=== PATIENT | male | born 1965 | race Caucasian/White ===

== ENCOUNTER 2020-11-23 12:17 | Outpatient (REF) | payer BC, SELFPAY ==
[2020-11-23 13:51] LABS: MANUAL DIFF FLAG NO
[2020-11-23 14:02] LABS: Basophils Percent Auto 0.6 % (0-2); Eosinophils Absolute Auto 0.1 X10*3/uL (0.0-0.4); Eosinophils Percent Auto 2.2 % (0-4); Hematocrit 46.1 % (42-52); Hemoglobin 15.4 g/dl (14.0-18.0); Imm Gran Abs Auto 0.02 X10*3/uL (0.00-0.03); Imm Gran Pct Auto 0.3 % (0.0-0.4); Lymphocytes Absolute Auto 1.7 X10*3/uL (1.2-4.9); Lymphocytes Percent Auto 26.1 % (20-40); Mean Corpuscular HGB Conc 33.4 g/dl (31.0-36.0); Mean Corpuscular Hemoglobin 29.1 pg (27.0-33.0); Mean Corpuscular Volume 87.1 fL (80-98); Mean Platelet Volume 10.9 fL (9.4-12.4); Monocytes Absolute Auto 0.5 X10*3/uL (0.1-1.2); Monocytes Percent Auto 8.1 % (2-11); Neutrophils Percent Auto 62.7 % (45-73); Platelet Count 276 X10*3/uL (160-400); Red Blood Count 5.29 X10*6/uL (4.60-5.80); White Blood Count 6.4 X10*3/uL (4.8-10.8)
[2020-11-23 14:41] LABS: Alanine Aminotransferase 47 U/L (0-40); Albumin Level 4.7 g/dL (3.5-5.0); Alkaline Phosphatase 59 U/L (39-117); Anion Gap 13 (12-20); Aspartate Amino Transferase 31 U/L (5-37); Bilirubin Total 0.4 mg/dL (0.0-1.0); Blood Urea Nitrogen 16 mg/dL (9-16); Calcium 10.1 mg/dL (8.4-10.2); Carbon Dioxide 27 mmol/L (22-29); Chloride 103 mmol/L (96-108); Estimated Glomerular Filt Rate > 60; Glucose Random 175 mg/dL (60-115); Potassium 4.8 mmol/L (3.3-5.1); Sodium 138 mmol/L (135-145); Total Protein 7.1 g/dL (6.5-8.0)
== END 2020-11-23 12:18 | disposition home or self-care (01) ==
LOC: HO.HMGCLDS 12:17
PROVIDERS: Nurse Practitioner Family; PCP Nurse Practitioner Family; Visit Provider Nurse Practitioner Family
DX: R10.9 Unspecified abdominal pain (principal)
CPT/HCPCS: 36415; 80053; 85025

== ENCOUNTER 2020-12-03 11:40 | Emergency (ER) | payer BC, SELFPAY ==
--- NOTE | 2020-12-03 | ECG_ITS ---
Test Reason : CHEST PAIN Blood Pressure : / mmHG Vent. Rate : 072 BPM Atrial Rate : 072 BPM P-R Int : 180 ms QRS Dur : 086 ms QT Int : 382 ms P-R-T Axes : 026 036 023 degrees QTc Int : 418 ms Normal sinus rhythm with sinus arrhythmia Possible Left atrial enlargement Borderline ECG No previous ECGs available Referred By: Generic ED Physician Electronically Signed By:MIGUEL CALL MD
--- NOTE | ~2020-12-03 | XR_ITS ---
EXAMINATION: XR CHEST CLINICAL INFORMATION: Chest pain COMPARISON: None TECHNIQUE: 2 views of the chest were obtained. FINDINGS: No significant abnormality is noted involving the heart, lungs, mediastinum, bony thorax or soft tissues. XR/XR chest 2V IMPRESSION: Unremarkable examination.
[2020-12-03 12:01] VITALS: BP 189/96; PULSE 81; RESP 18; TEMP 36.8; O2SAT 97; BMI 29.5
[2020-12-03 12:43] VITALS: BP 145/77; PULSE 58; PULSE 63; RESP 14; O2SAT 98
--- NOTE | 2020-12-03 12:53 | ED.CHESTPAIN ---
HPI - Chest Pain General Chief Complaint: Chest Pain Stated Complaint: chest pain Time Seen by Provider: 12/03/20 12:52 Source: patient Mode of arrival: ambulatory Limitations: no limitations History of Present Illness HPI narrative: 55 y/o male with history of HTN and GERD who presents to the ER with intermittent sharp left sided chest pains that started last night when he was watching TV. He states they are sharp cramps that only last a few seconds and come and go. They do not radiate. They have been happening on/off since last night. He was nervous about them and did not go to sleep until about 3am. He went for a 1.5 hour walk this morning with his with a few minor episodes of pain, no SOB, no diaphoresis. He admits to mild nausea but no vomiting. He was seen at [facility] on 11/27 for LLQ pain - diagnosed with colitis and found to have 1st degree AV block, HR 50-60's. His labetelol was stopped and he was started on losartan. MD complaint: chest pain Onset (ago): day(s) (1) Timing of current episode: episodic Prior episodes: No Onset: during rest Pain location: left chest Pain radiation: none Severity: moderate Quality: sharp and shooting Relieving factors: nothing Exacerbating factors: nothing Associated symptoms: nausea Treatment prior to arrival: none Risk Factors Coronary artery disease risk factors: hypertension Thoracic aortic dissection risk factors: none Related Data Previous Rx's Medication Instructions Recorded famotidine 40 mg tablet 40 mg PO DAILY 90 Days #90 tab 09/14/20 scopolamine base 1 mg over 3 days 1 patch TRANSDERMAL Q3D PRN 30 09/28/20 transdermal patch Days #24 ea tizanidine 2 mg tablet 2 mg PO BEDTIME PRN 20 Days #20 tab 09/28/20 losartan 25 mg tablet 25 mg PO DAILY #90 tab 11/28/20 Allergies Allergy/AdvReac Type Severity Reaction Status Date / Time metformin AdvReac Unknown stomach Verified 12/03/20 12:01 upset Review of Systems Review of Systems: Constitutional: No Fever, No Chills ENT/Mouth: No sore throat, No Rhinorrhea, No Swallowing Difficulty Eyes: No Eye Pain, No Swelling, No Redness Cardiovascular: + Chest Pain, No SOB, No Orthopnea, No Edema Respiratory: No Cough, No Sputum, No Wheezing, No dyspnea Gastrointestinal: + Nausea, No Vomiting, No Diarrhea, No abdominal Pain, No Hematochezia, No Melena Genitourinary: No Dysuria, No Urinary Frequency, No Hematuria Musculoskeletal: No joint pain, No Myalgias Skin: No Skin Lesions, No rash Neuro: No Weakness, No Numbness, No Dizziness, No Headache Psych: + Anxiety/Panic, No Depression Heme/Lymph: No Bruising, No Lymphadenopathy Endocrine: No Polyuria, No Polydipsia PMF Past Medical History Attestation statement: The following information was validated with the patient. Medical History Hypertensive retinopathy Surgical History (Updated 12/03/20 @ 12:05 by Lashay Sanchez RN) H/O knee surgery S/P shoulder surgery Family History Family History Father No problems noted. Mother Cancer Social History Social History Alcohol intake: current Alcohol intake frequency: holidays/special occasions only Patient Tobacco Use Status: Never used Tobacco Use of substances other than those prescribed or required for medical reasons: Yes Substance Use Type: Marijuana Substance Use Frequency: Daily Advance Directives: No Advance Directives Information Provided: Yes Physical Exam Vital Signs: Vital Signs: Last Vital Signs Temp 98.2 F 12/03/20 12:01 Pulse 57 12/03/20 16:03 Resp 18 12/03/20 16:03 BP 177/98 H 12/03/20 16:03 Pulse Ox 99 12/03/20 16:03 Body Mass Index 29.5 Appearance: Alert. Oriented X3. No acute distress. Eyes: Pupils equal, round and reactive to light. ENT: Pharynx normal. Neck: Normal inspection. Neck supple. CVS: Normal heart rate and rhythm. Pulses normal. Respiratory: No respiratory distress. Breath sounds normal. Abdomen: Soft and nontender. +BS x4 Skin: Skin warm and dry. Normal skin color. Normal skin turgor. No rashes. Extremities: No lower extremity edema. Neuro: Oriented X 3. No motor deficit. No sensory deficit. Course Course Course Narrative: 55 y/o male with history of HTN presenting with intermittent sharp left sided chest pains that last a few seconds at a time. Not typical of cardiac chest pain or ACS. EKG without STEMI. Will get lab workup, CXR and keep on continuous secured entrance monitor. Reevaluation(s) Reevaluation #1: 1st troponin 56. Will plan to repeat in 3 hours. He is comfortable and chest pain free at this time. CXR is normal. Reevaluation #2: Repeat troponin is unchanged. Case d/w Dr. Beach via TT - chest pain does not seem typical of ACS, trop is flat. Doubt ACS at this time. Patient is stable for discharge home with plan for close outpatient follow up. He will follow up with his doctor next week for BP management and follow up. He also would like to see a Principal Consulting Engineer so this referral was made as well. Patient instructed to return if chest pain changes or worsens. Consultations Consultation #1: Cardiology - Dr. Beach MDM - Chest Pain Medical Records Data Attestation: I reviewed the patient's medical records. Lab Data Attestation: I reviewed the patient's lab results. Result diagrams: 12/03/20 12:57 12/03/20 12:57 Labs: Lab Results 12/03/20 12/03/20 12/03/20 Range/Units 12:57 12:57 12:57 WBC 6.5 (4.8-10.8) X10*3/uL RBC 5.19 (4.60-5.80) X10*6/uL Hgb 15.2 (14.0-18.0) g/dl Hct 44.0 (42-52) % MCV 84.8 (80-98) fL MCH 29.3 (27.0-33.0) pg MCHC 34.5 (31.0-36.0) g/dl RDW 12.7 (11.0-16.0) % Plt Count 235 (160-400) X10*3/uL MPV 10.5 (9.4-12.4) fL Immature Gran % (Auto) 0.2 (0.0-0.4) % Neut % (Auto) 63.6 (45-73) % Lymph % (Auto) 25.9 (20-40) % [place] % (Auto) 7.9 (2-11) % Eos % (Auto) 1.9 (0-4) % Baso % (Auto) 0.5 (0-2) % Lymph # (Auto) 1.7 (1.2-4.9) X10*3/uL [place] # (Auto) 0.5 (0.1-1.2) X10*3/uL Eos # (Auto) 0.1 (0.0-0.4) X10*3/uL Baso # (Auto) 0.0 (0.0-0.2) X10*3/uL Abs Immat Gran (auto) 0.01 (0.00-0.03) X10*3/uL Absolute Neuts (auto) 4.1 (2.0-8.3) X10*3/uL Absolute Nucleated RBC 0.000 (0.0-0.012) X10*3/uL Nucleated RBC % (auto) 0.0 (0.0-0.2) /100WBC Sodium Cancelled 137 Potassium Cancelled 4.4 Chloride Cancelled 104 Carbon Dioxide Cancelled 21 L Anion Gap Cancelled 16 BUN Cancelled 17 H Creatinine Cancelled 0.91 Estim Creat Clear Calc Cancelled 115.3 Estimated GFR Cancelled > 60 Random Glucose Cancelled 128 H Calcium Cancelled 9.4 D Magnesium 2.1 (1.6-2.6) mg/dL Troponin I High Sens (<3.5-35.0) ng/L 12/03/20 12/03/20 Range/Units 12:57 16:10 WBC (4.8-10.8) X10*3/uL RBC (4.60-5.80) X10*6/uL Hgb (14.0-18.0) g/dl Hct (42-52) % MCV (80-98) fL MCH (27.0-33.0) pg MCHC (31.0-36.0) g/dl RDW (11.0-16.0) % Plt Count (160-400) X10*3/uL MPV (9.4-12.4) fL Immature Gran % (Auto) (0.0-0.4) % Neut % (Auto) (45-73) % Lymph % (Auto) (20-40) % [place] % (Auto) (2-11) % Eos % (Auto) (0-4) % Baso % (Auto) (0-2) % Lymph # (Auto) (1.2-4.9) X10*3/uL [place] # (Auto) (0.1-1.2) X10*3/uL Eos # (Auto) (0.0-0.4) X10*3/uL Baso # (Auto) (0.0-0.2) X10*3/uL Abs Immat Gran (auto) (0.00-0.03) X10*3/uL Absolute Neuts (auto) (2.0-8.3) X10*3/uL Absolute Nucleated RBC (0.0-0.012) X10*3/uL Nucleated RBC % (auto) (0.0-0.2) /100WBC Sodium Potassium Chloride Carbon Dioxide Anion Gap BUN Creatinine Estim Creat Clear Calc Estimated GFR Random Glucose Calcium Magnesium (1.6-2.6) mg/dL Troponin I High Sens 56.1 H* 56.3 H* (<3.5-35.0) ng/L ECG Data ECG #1: Attestation: I personally reviewed and interpreted this ECG as follows: ECG interpretation date: 12/03/20 ECG interpretation time: 13:08 Prior ECG tracings: available for review Interpretation: normal sinus rhythm, HR 72 bpm, normal DC interval, normal QRS, isolated t-wave inversion in lead III Scores Heart Score History: -0- slightly suspicious ECG: -0- normal Age: -1- >45 - <65 Risk factory: -1- 1 or 2 risk factors Troponin: -1- >1 - <3x normal limit Score: 3 Risk: 1.7% Critical Care Time Critical Care Time Critical Care Time: No Discharge Plan Discharge Clinical Impression: Atypical chest pain Patient Disposition: Home, Self-Care Instructions: Chest Pain (ED) Additional Instructions: Your lab workup today was reassuring against acute life threatening cardiac chest pain. Recommend rest, no strenuous activity. Follow up with your doctor next week. Continue taking your blood pressure medication, it may need to be increased by your doctor. Recommend following up with Cardiology for further workup. If you develop new or worsening symptoms or if your chest pain worsens or changes call 911 or come back to the ER for further evaluation. Prescriptions: No Action famotidine 40 mg tablet 40 mg PO DAILY 90 Days Qty: 90 RF: 0 losartan 25 mg tablet 25 mg PO DAILY Qty: 90 RF: 0 tizanidine 2 mg tablet 2 mg PO BEDTIME PRN (Reason: muscle spasticity) 20 Days Qty: 20 RF: 0 scopolamine base 1 mg over 3 days patch 3 day 1 patch transdermal Q3D PRN (Reason: nausea and vomiting) 30 Days Qty: 24 RF: 3 Referrals: Poli Beach MD [Physician] - 5 days (atypical chest pain, HTN)
[2020-12-03 13:03] LABS: MANUAL DIFF FLAG NO
[2020-12-03 13:08] LABS: Basophils Percent Auto 0.5 % (0-2); Eosinophils Absolute Auto 0.1 X10*3/uL (0.0-0.4); Eosinophils Percent Auto 1.9 % (0-4); Hemoglobin 15.2 g/dl (14.0-18.0); Imm Gran Abs Auto 0.01 X10*3/uL (0.00-0.03); Imm Gran Pct Auto 0.2 % (0.0-0.4); Lymphocytes Absolute Auto 1.7 X10*3/uL (1.2-4.9); Lymphocytes Percent Auto 25.9 % (20-40); Mean Corpuscular HGB Conc 34.5 g/dl (31.0-36.0); Mean Corpuscular Hemoglobin 29.3 pg (27.0-33.0); Mean Corpuscular Volume 84.8 fL (80-98); Mean Platelet Volume 10.5 fL (9.4-12.4); Monocytes Absolute Auto 0.5 X10*3/uL (0.1-1.2); Monocytes Percent Auto 7.9 % (2-11); Neutrophils Absolute Auto 4.1 X10*3/uL (2.0-8.3); Neutrophils Percent Auto 63.6 % (45-73); Platelet Count 235 X10*3/uL (160-400); Red Blood Count 5.19 X10*6/uL (4.60-5.80); Red Cell Distribution Width 12.7 % (11.0-16.0); White Blood Count 6.5 X10*3/uL (4.8-10.8)
[2020-12-03 13:45] LABS: Blood Urea Nitrogen 17 mg/dL (9-16); Calcium 9.4 mg/dL (8.4-10.2); Creatinine Clr Calc Pharmacy 115.3; Estimated Glomerular Filt Rate > 60; Glucose Random 128 mg/dL (60-115); Magnesium 2.1 mg/dL (1.6-2.6); Troponin-I High Sensitivity 56.1 ng/L (<3.5-35.0)
[2020-12-03 13:52] LABS: Anion Gap 16 (12-20); Carbon Dioxide 21 mmol/L (22-29); Chloride 104 mmol/L (96-108); Potassium 4.4 mmol/L (3.3-5.1); Sodium 137 mmol/L (135-145)
[2020-12-03] MEDS: Aspirin 325 MG TABLET PO (14:05)
[2020-12-03 14:06] VITALS: BP 159/94; PULSE 54; RESP 14; O2SAT 99
[2020-12-03 16:03] VITALS: BP 177/98; PULSE 54; PULSE 57; RESP 16; RESP 18; O2SAT 99
--- NOTE | 2020-12-03 16:03 | PC.NURSE ---
pt denies any cp/discomfort has resolved at this time. pt has denied nausea, sob, dizziness since arrival toED. sinus claribel in 50s on monitor. awaiting 2nd troponin, pt aware of plan for care.
[2020-12-03 16:45] LABS: Troponin-I High Sensitivity 56.3 ng/L (<3.5-35.0)
== END 2020-12-03 17:16 | disposition home or self-care (01) ==
PROVIDERS: Physician Assistant; Emergency Provider Emergency Medicine Emergency Medical Services; PCP Nurse Practitioner Family
DX: R07.89 Other chest pain (principal); I10 Essential (primary) hypertension; K21.9 Gastro-esophageal reflux disease without esophagitis
CPT/HCPCS: 36415; 71046; 80048; 83735; 84484; 85025; 93005; 99285

== ENCOUNTER → 2020-12-20 13:24 | Outpatient (BNVA) | payer BC, SELFPAY | PROVIDERS: PCP Nurse Practitioner Family; Referring Provider Nurse Practitioner Family; Visit Provider Internal Medicine Cardiovascular Disease | DX: I44.0 Atrioventricular block, first degree (principal); I42.9 Cardiomyopathy, unspecified; I10 Essential (primary) hypertension; H35.039 Hypertensive retinopathy, unspecified eye; K21.9 Gastro-esophageal reflux disease without esophagitis; Z79.899 Other long term (current) drug therapy | CPT/HCPCS: 93005 ==

== ENCOUNTER → 2021-01-05 09:24 | Outpatient (BNVA) | payer BC, SELFPAY | PROVIDERS: PCP Nurse Practitioner Family; Referring Provider Nurse Practitioner Family; Visit Provider Internal Medicine Cardiovascular Disease ==

== ENCOUNTER → 2021-02-10 09:05 | Outpatient (REF) | payer BC, SELFPAY ==
--- NOTE | 2021-02-10 09:09 | CA_ITS ---
Transthoracic Echocardiogram Patient (Last, First, Middle): Maverick Larry, Gender: Male Date of : 1965 Age: 55 Procedure Date: 02/10/2021 Procedure Type: Transthoracic Echocardiogram Location: OP Height: 187.96 cm Weight: 102.97 kg BSA: 2.29 m2 Heart Rate: bpm BP: 130 / 90 mmHg Manager Of Procurement: CATIE Referring MD: Vasu Caldera MD Symptoms: I42.9 - Cardiomyopathy, unspecified Conclusions: - Normal left ventricular size and systolic function. - Diastolic function is normal for age. - Normal right ventricular cavity size and systolic function. Findings Left Ventricle Normal left ventricular size and systolic function. There is mildly increased left ventricular wall thickness. The visually estimated ejection fraction is between 60-65%. There is no evidence of regional wall motion abnormalities. Diastolic function is normal for age. Right Ventricle Normal right ventricular cavity size and systolic function. Atria Both atria are normal in size. Aortic Valve Normal aortic valve structure and function. There is no aortic valve stenosis. There is no aortic valve regurgitation. Mitral Valve Normal mitral valve structure and function. There is trace mitral valve regurgitation. There is no mitral valve stenosis. Pulmonic Valve Normal pulmonic valve structure and function. There is no pulmonic valve regurgitation. Tricuspid Valve Normal tricuspid valve structure and function. There is no tricuspid valve regurgitation. Tricuspid regurgitation envelope is inadequate for calculation of right ventricular systolic pressure. Normal right atrial pressure. Great Vessels There is mild dilatation of the ascending aorta. The visualized portions of the pulmonary artery and branches are normal. Venous The inferior vena cava is normal in size and collapses greater than 50% with inspiration. Pericardium/Pleural There is no evidence of pericardial effusion. Prior Study Comparison No significant change compared to prior study dated: 07/07/2019. Measurements 2D Linear Measurements IVSd: 1.19 0.6-0.9/0.6-1.0 cm LVIDd: 4.11 3.9-5.3/4.2-5.9 cm LVIDd Index: 1.79 2.4-3.2/2.2-3.1 cm/m2 LVIDs: 2.63 2.0-3.6 cm LVPWd: 1.20 0.7-1.1 cm Ao Root: 3.70 2.1-3.5 cm LA Diam: 3.80 2.7-3.8/3.0-4.0 cm LAIDs Index: 1.66 1.5-2.3 cm/m2 LV Mass: 213.41 67-162/88-224 g LV Mass Index: 93.19 43-95/49-115 g/m2 LVOT Diam: 2.40 3.0+(-)1.3 cm 2D Systolic Function EF 4C: 69.20 >55% EF 2C: 65.50 >55% EF BiP: 67.90 >55% Mitral Valve MV Pk E: 0.74 MV PK A: 0.81 MV Decel Time: 213.00 E/A: 0.90 E'Lateral: 8.81 E'Medial: 5.87 E/E' Med: 12.50 E/E' Lat: 8.30 PHT: 62.00 MVA PHT: 3.55 Decel [place]: 3.45 Aortic Valve AoV Pk Benja: 1.21 AoV Pk Grad: 6.00 LVOT LVOT Pk Benja: 1.26 LVOT Mn Benja: 0.79 LVOT VTI: 0.25 LVOT Pk Grad: 6.00 LVOT Mn Grad: 3.00 LVOT Diam: 2.40 LVOT Area: 4.52 Diastolic Function MV Pk E: 0.74 MV Pk A: 0.81 E/A: 0.90 E'Medial: 5.87 E/E' Med: 12.50 E' Laterial: 8.81 E/E' Lat: 8.30 Right Ventricle TAPSE (mm): 2.07 Tricuspid Valve RA Press: 3.00 Great Vessels Aorta Ao Root-2D: 3.70 2.0-3.7 cm Ao Asc: 3.80 2.1-3.4 cm Updated in Other Vendor System with Status of Final Vasu Caldera MD electronically signed on 02/12/2021 3:27:07 PM with status of Final
== END ==
LOC: HO.CARD 09:05
PROVIDERS: Visit Provider Internal Medicine Cardiovascular Disease
DX: I10 Essential (primary) hypertension (principal); I42.9 Cardiomyopathy, unspecified
CPT/HCPCS: 93306

== ENCOUNTER → 2021-04-19 15:00 | Outpatient (BNVA) | payer BC, SELFPAY | PROVIDERS: PCP Nurse Practitioner Family; Referring Provider Nurse Practitioner Family; Visit Provider Internal Medicine Cardiovascular Disease ==

== ENCOUNTER → 2021-05-03 14:59 | Outpatient (BNVA) | payer BC, SELFPAY | PROVIDERS: PCP Nurse Practitioner Family; Referring Provider Nurse Practitioner Family; Visit Provider Internal Medicine Cardiovascular Disease ==

== ENCOUNTER → 2021-07-20 15:17 | Outpatient (BNVA) | payer BC, SELFPAY | PROVIDERS: PCP Nurse Practitioner Family; Referring Provider Nurse Practitioner Family; Visit Provider Internal Medicine Cardiovascular Disease ==

== ENCOUNTER 2021-08-14 12:56 | Outpatient (REF) | payer BC, SELFPAY ==
[2021-08-14 14:04] LABS: Anion Gap 13 (12-20); Blood Urea Nitrogen 15 mg/dL (9-16); Calcium 9.8 mg/dL (8.4-10.2); Carbon Dioxide 29 mmol/L (22-29); Chloride 101 mmol/L (96-108); Estimated Glomerular Filt Rate > 60; Potassium 4.5 mmol/L (3.3-5.1); Sodium 138 mmol/L (135-145)
[2021-08-14 14:51] LABS: Creatinine Urine 140.02 mg/dL; Protein/Creatinine Ratio, Ur 0.14 (<0.2); Total Protein Urine Random 20 mg/dL (<12)
== END 2021-08-14 12:57 | disposition home or self-care (01) ==
LOC: HO.LAB 12:56
PROVIDERS: PCP Nurse Practitioner Family; Visit Provider Internal Medicine Nephrology
DX: I10 Essential (primary) hypertension (principal); R80.8 Other proteinuria
CPT/HCPCS: 36415; 80051; 82310; 82565; 84156; 84520

== ENCOUNTER 2021-10-05 11:32 | Outpatient (REF) | payer BC, SELFPAY ==
[2021-10-05 13:57] LABS: Estimated Average Glucose 220 mg/dL; Hemoglobin A1c % 9.3 %
== END 2021-10-05 11:33 | disposition home or self-care (01) ==
LOC: HO.HMGCLDS 11:32
PROVIDERS: PCP Nurse Practitioner Family; Visit Provider Nurse Practitioner Family
DX: R73.9 Hyperglycemia, unspecified (principal); R00.1 Bradycardia, unspecified; R06.00 Dyspnea, unspecified; I10 Essential (primary) hypertension; R10.9 Unspecified abdominal pain
CPT/HCPCS: 36415; 83036

== ENCOUNTER 2021-10-22 05:49 | Emergency (ER) | payer BC, SELFPAY ==
--- NOTE | ~2021-10-22 | XR_ITS ---
EXAMINATION: XR CHEST CLINICAL INFORMATION: Cough COMPARISON: 12/03/2020 TECHNIQUE: Frontal view of the chest was obtained. FINDINGS: The lungs are well expanded. There is no focal consolidation, edema, or effusion. No pneumothorax. The cardiomediastinal silhouette is within normal limits. No acute osseous abnormality. XR/XR chest 1V IMPRESSION: No acute pulmonary finding.
[2021-10-22 05:55] VITALS: BP 166/100; PULSE 87; RESP 22; TEMP 37.1; O2SAT 97; BMI 29.5
[2021-10-22 06:25] LABS: COVID-19 Test Negative (Negative); IDNOW Serial# 16C4AD1C; Influenza A Negative (Negative); Influenza B2 Negative (Negative)
--- NOTE | 2021-10-22 06:38 | ED_ITS ---
HPI - URI/Sore Throat General Chief Complaint: Upper Respiratory Symptoms Stated Complaint: flu+ ; difficulty breathing Time Seen by Provider: 10/22/21 06:37 Source: patient Mode of arrival: ambulatory Limitations: no limitations History of Present Illness MD elicited complaint: cough and rhinorrhea Onset (ago): day(s) (7) Consistency: progressively worsening Severity: moderate Description of mucous: clear Able to tolerate fluids by mouth: Yes Exacerbating factors: other (coughing) Relieving factors: nothing Context: sick contacts (friend had same thing) and recent travel (stayed in a condo in [facility] a week ago) Associated symptoms: rhinorrhea, nasal congestion, cough and shortness of breath Treatments prior to arrival: none Related Data Home Medications Medication Instructions Recorded Confirmed losartan 50 mg tablet 50 mg PO DAILY 04/19/21 10/07/21 Previous Rx's Medication Instructions Recorded scopolamine base 1 mg over 3 days 1 patch TRANSDERMAL Q3D PRN 30 09/28/20 transdermal patch Days #24 ea famotidine 40 mg tablet 40 mg PO DAILY PRN 90 Days #90 tab 06/07/21 blood sugar diagnostic (FreeStyle #100 ea 10/05/21 Lite Strips) blood-glucose meter (FreeStyle #1 ea 10/05/21 Lite Meter) lancets 28 gauge (FreeStyle #100 ea 10/05/21 Lancets) metformin 500 mg tablet 500 mg PO BID 30 Days #60 tab 10/05/21 doxycycline hyclate 100 mg capsule 100 mg PO BID 7 Days #14 cap 10/22/21 prednisone 20 mg tablet 20 mg PO DAILY 5 Days #5 tab 10/22/21 Allergies Allergy/AdvReac Type Severity Reaction Status Date / Time metformin AdvReac Unknown stomach Verified 10/22/21 05:55 upset Review of Systems Review of Systems: Constitutional : No Fever, No Chills ENT/Mouth : No sore throat, pos Rhinorrhea, No Swallowing Difficulty Eyes: No Eye Pain, No Swelling, No Redness Cardiovascular : No Chest Pain, positive SOB, No Orthopnea, positive Edema Respiratory : pos Cough, pos Sputum, No Wheezing, positive dyspnea Gastrointestinal : No Nausea, No Vomiting, No Diarrhea, No abdominal Pain, No Hematochezia, No Melena Genitourinary : No Dysuria, No Urinary Frequency, No Hematuria Musculoskeletal : No joint pain, No Myalgias Skin : No Skin Lesions, No rash Neuro : No Weakness, No Numbness, No Dizziness, No Headache Psych : No Anxiety/Panic, No Depression [facility] Past Medical History Medical History GERD (gastroesophageal reflux disease) Hypertensive retinopathy Surgical History H/O knee surgery S/P shoulder surgery Family History Family History Father No problems noted. Mother Cancer Social History Social History Alcohol intake: current Alcohol intake frequency: a few times a month Patient Tobacco Use Status: Never used Tobacco Substance Use Type: Marijuana Advance Directives: No Advance Directives Information Provided: Yes Physical Exam Vital Signs: Vital Signs: Last Vital Signs Temp 98.8 F 10/22/21 05:55 Pulse 87 10/22/21 05:55 Resp 22 H 10/22/21 05:55 BP 166/100 H 10/22/21 05:55 Pulse Ox 97 10/22/21 05:55 BMI result Body Mass Index 29.5 Appearance: Alert. Oriented X3. No acute distress. Eyes: Pupils equal, round and reactive to light. ENT: Pharynx normal. Neck: Normal inspection. Neck supple. CVS: Normal heart rate and rhythm. Pulses normal. Respiratory: No respiratory distress. Breath sounds normal. Abdomen: Soft and non-tender. Skin: Skin warm and dry. Normal skin color. Normal skin turgor. Extremities: No lower extremity edema. No calf ttp Neuro: Oriented X 3. No motor deficit. No sensory deficit. MDM - URI/Sore Throat MDM Narrative Medical decision making narrative: 55 yo male with hx of HTN no prior reactive airway disease not a smoker comes in with c/o productive cough and not feeling well with a sick friend - xray and swabs negative stable for DC at this time no hypoxia not toxic start on doxy and prednisone for bronchitis. Lab Data Labs: Lab Results 10/22/21 10/22/21 Range/Units 06:05 06:05 COVID-19 ([facility]) Negative (Negative) COVID-19 Clin Com See Note Influenza Type A ([place]) Negative (Negative) Influenza Type B ([place]) Negative (Negative) Influenza A & B Note See Note Discharge Plan Discharge Clinical Impression: Bronchitis Patient Disposition: Home, Self-Care Instructions: Acute Bronchitis (ED) Additional Instructions: return to ED for any worsening symptoms or concerns Prescriptions: New doxycycline hyclate 100 mg capsule 100 mg PO BID 7 Days Qty: 14 0RF prednisone 20 mg tablet 20 mg PO DAILY 5 Days Qty: 5 0RF No Action famotidine 40 mg tablet 40 mg PO DAILY PRN (Reason: GERD) 90 Days Qty: 90 0RF metformin 500 mg tablet 500 mg PO BID 30 Days Qty: 60 0RF Rx Instructions: one tab daily for 1 weeks, then go to twice a day (DME) blood-glucose meter [FreeStyle Lite Meter] Kit See Rx Instructions .Route Qty: 1 0RF Rx Instructions: Use to check blood sugar daily (DME) FreeStyle Lite Strips Strip See Rx Instructions .Route Qty: 100 0RF Rx Instructions: Use to check blood sugar daily (DME) lancets [FreeStyle Lancets] 28 gauge misc See Rx Instructions .Route Qty: 100 0RF Rx Instructions: Use to check blood sugar daily scopolamine base 1 mg over 3 days patch 3 day 1 patch transdermal Q3D PRN (Reason: nausea and vomiting) 30 Days Qty: 24 3RF losartan 50 mg tablet 50 mg PO DAILY 0RF Referrals: Mayank Loera, CRITICAL CARE PHYSICIAN ASSISTANT-BC [Primary Care Provider] - 2 days (if not better) Stand Alone Forms: Work/School Release
== END 2021-10-22 07:48 | disposition home or self-care (01) ==
PROVIDERS: Emergency Provider Emergency Medicine; PCP Nurse Practitioner Family
DX: J40 Bronchitis, not specified as acute or chronic (principal); I10 Essential (primary) hypertension; Z20.822 Contact with and (suspected) exposure to COVID-19
CPT/HCPCS: 71045; 87502; 87635; 99283

== ENCOUNTER 2022-05-22 08:35 | Outpatient (REF) | payer BC, SELFPAY ==
[2022-05-22 11:25] LABS: Appearance Urine Turbid; Color Urine Yellow; Glucose Urine UA 100 mg/dL (Negative); Leukocyte Esterase Urine Negative (Negative); Nitrite Urine Negative (Negative); PH 5.5 (5.0-9.0); Specific Gravity - Urine 1.025 (1.005-1.025); UMIC TRIGGER UACC YES; Urine Blood Negative (Negative); Urine Ketones Trace mg/dL (Negative); Urine Protein 30 (1+) mg/dL (Neg-Trace)
[2022-05-22 11:28] LABS: Bacteria Urine None Seen (None Seen); Hyaline Casts Urine 0-2 /LPF (0-2); MANUAL DIFF FLAG NO; RBC Urine 0-2 /HPF (0-2); Squamous Epithelial Cell Urine 0-2 /HPF (0-2); WBC Urine 0-5 /HPF (0-5)
[2022-05-22 11:35] LABS: Basophils Percent Auto 0.6 % (0-2); Eosinophils Absolute Auto 0.1 X10*3/uL (0.0-0.4); Eosinophils Percent Auto 1.9 % (0-4); Hematocrit 47.3 % (42.0-52.0); Hemoglobin 16.2 g/dl (14.0-18.0); Imm Gran Abs Auto 0.02 X10*3/uL (0.00-0.03); Imm Gran Pct Auto 0.3 % (0.0-0.4); Lymphocytes Absolute Auto 1.7 X10*3/uL (1.2-4.9); Lymphocytes Percent Auto 23.5 % (20-40); Mean Corpuscular HGB Conc 34.2 g/dl (31.0-36.0); Mean Corpuscular Hemoglobin 29.1 pg (27.0-33.0); Mean Corpuscular Volume 84.9 fL (80.0-98.0); Mean Platelet Volume 10.8 fL (9.4-12.4); Monocytes Absolute Auto 0.4 X10*3/uL (0.1-1.2); Monocytes Percent Auto 5.8 % (2-11); Neutrophils Absolute Auto 4.9 x10*3/uL (2.0-8.3); Neutrophils Percent Auto 67.9 % (45-73); Platelet Count 273 X10*3/uL (160-400); Red Blood Count 5.57 X10*6/uL (4.60-5.80); Red Cell Distribution Width 12.5 % (11.0-16.0); White Blood Count 7.3 X10*3/uL (4.8-10.8)
[2022-05-22 13:51] LABS: Creatinine Urine 212.34 mg/dL; Microalbum/Creatinine Ratio Ur 123.8 ug/mg cr
[2022-05-22 14:04] LABS: Alanine Aminotransferase 21 U/L (0-40); Albumin Level 4.5 g/dL (3.5-5.0); Alkaline Phosphatase 66 U/L (39-117); Anion Gap 14 (12-20); Aspartate Amino Transferase 15 U/L (5-37); Bilirubin Total 0.8 mg/dL (0.0-1.0); Blood Urea Nitrogen 15 mg/dL (9-16); Calcium 9.6 mg/dL (8.4-10.2); Carbon Dioxide 25 mmol/L (22-29); Chloride 101 mmol/L (96-108); Cholesterol 243 mg/dL; Estimated Glomerular Filt Rate > 60; Glucose Fasting 199 mg/dL (60-99); HDL Cholesterol 44 mg/dL; LDL Cholesterol Calculated 154 mg/dl; Potassium 4.3 mmol/L (3.3-5.1); Prostate Specific Antigen Scr 1.18 ng/mL (<0.05-4.0); Sodium 136 mmol/L (135-145); TSH reflex Free T4 0.67 uIU/mL (0.32-4.0); Total Protein 6.8 g/dL (6.5-8.0); Triglycerides 228 mg/dL
[2022-05-22 14:14] LABS: Estimated Average Glucose 220 mg/dL; Hemoglobin A1c % 9.3 %
== END 2022-05-22 08:36 | disposition home or self-care (01) ==
LOC: HO.HMGCLDS 08:35
PROVIDERS: PCP Nurse Practitioner Family; Visit Provider Nurse Practitioner Family
DX: Z12.5 Encounter for screening for malignant neoplasm of prostate (principal); E11.9 Type 2 diabetes mellitus without complications
CPT/HCPCS: 36415; 80053; 80061; 81001; 82043; 83036; 84153; 84443; 85025

== ENCOUNTER 2022-10-05 07:52 | Outpatient (REF) | payer BC, SELFPAY ==
--- NOTE | ~2022-10-05 | MR_ITS ---
EXAMINATION: MR ABDOMEN WITHOUT AND WITH CONTRAST CLINICAL INFORMATION: Left lower quadrant pain COMPARISON: None TECHNIQUE: MRI of the abdomen before and after the IV administration of 10 mL of Gadavist was obtained using routine sequences. Heavily T2 weighted MRCP sequences were also obtained. FINDINGS: LUNG BASES: The visualized lung bases are unremarkable. KIDNEYS AND URETERS: Unremarkable. GALLBLADDER: Unremarkable. LIVER AND BILIARY TREE: Loss of signal on opposed phase imaging compatible with hepatic steatosis. No intra or extrahepatic biliary duct dilatation or intraluminal filling defect to suggest choledocholithiasis.. PANCREAS: 4 mm cyst in the pancreatic head, 5:32 and 4 mm cyst in the pancreatic uncinate process, 5:30. No pancreatic duct dilatation or solid components. SPLEEN: Unremarkable ADRENAL GLANDS: Unremarkable GASTROINTESTINAL TRACT: Unremarkable. LYMPH NODES: No lymphadenopathy. VASCULAR: Unremarkable ABDOMINAL WALL: Unremarkable. OSSEOUS STRUCTURES: Unremarkable. MR/MR abdomen wo/w con IMPRESSION: No acute findings to explain symptoms of pain. Tiny 4 mm pancreatic cysts, possibly side branch IPMNs. No pancreatic duct dilatation or solid components. Recommend two-year follow-up contrast enhanced MR/MRCP. Hepatic steatosis.
== END 2022-10-05 07:53 | disposition home or self-care (01) ==
LOC: HO.MRI 07:52
PROVIDERS: PCP Nurse Practitioner Family; Visit Provider Nurse Practitioner Family
DX: R10.32 Left lower quadrant pain (principal)
CPT/HCPCS: 74183; A9585

== ENCOUNTER 2022-12-13 10:52 | Outpatient (AMB) | payer BC, SELFPAY ==
--- NOTE | 2022-12-13 10:56 | A.OFFVIS_ITS ---
Intake Vital Signs 12/13/22 11:06 Height 6 ft 2 in Weight 217 lb 8 oz BMI 27.9 BP 160/100 H Blood Pressure Location Lt brachial Position Sitting Pulse 81 Intake Visit Reasons: LLQ pain Intake Note: Patient is seen in office for evaluation of a left lower quadrant pain. Pt c/o: LLQ pain for 8 yrs, pain has increase, has since multiple doctors and had imaging done with no results, pain is at all times, admits to nausea, denies diarrhea, constipation, vomit Major Donor Coordinator Required: No Accompanied by: Self / Same As Patient Allergies No Known Allergies Allergy (Verified 12/13/22 11:04) Medication List - Last Reconciled 12/13/22 by Mayank Lau MD blood sugar diagnostic (FreeStyle Lite Strips) Use to check blood sugar daily blood-glucose meter (FreeStyle Lite Meter kit) Use to check blood sugar daily famotidine 40 mg PO DAILY PRN 90 days irbesartan 300 mg PO DAILY 30 days lancets (FreeStyle Lancets) Use to check blood sugar daily metformin 1,000 mg PO BID 30 days scopolamine base 1 patch transdermal Q3D PRN 30 days HPI HPI Comments History of Present Illness Details 57-year-old male patient presenting with complaints of left lower quadrant abdominal pain. The pain began approximately 8 years ago with no definite inciting event. 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 He underwent extensive workup including multiple CT scans, abdominal MRIs, ultrasounds and endoscopies without any definite diagnosis of his abdominal pain. The pain is always located in the same location without significant radiation. The pain seems to increase after eating or when sitting upright in a chair or in his car. The pain is decreased when laying back or when lying on the left lower quadrant. He reports increased pain when bending to touch his toes. He denies any palpable mass/lump at the site of increased pain. He notes that eating apples decreases the pain as well. [place] recent [place] [facility] [place] a tiny 4 mm pancreatic cyst possibly side branch IPMNs. No pancreatic duct dilatation or solid component was iden tified. Two year follow-up contrast-enhanced MR/MRCP was recommended. His other workup was performed at [facility]. He denies nausea, vomiting, fever, chills, diarrhea, constipation, or bloody stools. He was noted to have proteinuria and has been evaluated by Nephrology. [facility] Medical History GERD (gastroesophageal reflux disease) Hypertensive retinopathy Surgical History H/O knee surgery S/P shoulder surgery Family History Father No problems noted. Mother Cancer Social History Housing: House Alcohol intake: current Alcohol intake frequency: a few times a month Patient Tobacco Use Status: Never used Tobacco e-Cigarette/Vaping Use: Never Used Substance Use Type: Marijuana Current occupational status: employed Cognitive needs: No Hearing needs: No Vision needs: No Review of Systems Const All systems reviewed & are unremarkable except as noted in HPI and below Physical Exam Vital Signs: Last Vital Signs Pulse 81 12/13/22 11:06 BP 160/100 H 12/13/22 11:06 BMI result Body Mass Index 27.9 Const General: no acute distress and well developed Nutritional Appearance: well nourished Orientation/consciousness: patient oriented x3 Limitations: no limitations HEENT Head: Yes normocephalic and Yes atraumatic Ears: hearing grossly normal bilaterally Resp Effort & Inspection: normal respiratory effort GI Other: Patient examined in the standing position with Valsalva maneuvers. No palpable hernias were identified. An area of tenderness was identified just lateral of t he rectus in the left lower quadrant. Pain is reproducible in the same location with palpation from multiple directions. No definite hernia or mass could be identified. Abdomen is otherwise soft and nondistended without rebound, guarding or rigidity. Abdomen image: 1. Site of point tenderness left lower quadrant Skin General skin exam: no rashes or lesions noted Neuro General: patient oriented x3 Extrem General: Yes no clubbing, cyanosis or edema Assessment & Plan Assessment & Plan (1) LLQ pain: Code(s): R10.32 - Left lower quadrant pain Plan 57-year-old male patient presenting with point tenderness in the abdominal wall localized to the left lower quadrant. This is noted just lateral to the rectus muscle but medial to the belly of the oblique muscles. Site is suspicious for a spigelian hernia although no definite hernia is appreciated. We discussed options including diagnostic laparoscopy with possible repair of a spigelian hernia identified. After discussion of the procedure, risks, and alternatives, he consents to the procedure. He understands that there is a possibility of finding no cause for his pain. He is willing to risk this. After a discussion of the procedure, risks, and alternatives, he consents to the exploratory laparoscopy with possible ventral hernia repair. Coding Level of Care Code New Pt Level 4 (85252) Diagnoses LLQ pain R10.32
[2022-12-13 11:06] VITALS: BP 160/100; PULSE 81; BMI 27.9
== END 2022-12-13 11:44 | disposition home or self-care (01) ==
PROVIDERS: PCP Nurse Practitioner Family; Referring Provider Nurse Practitioner Family; Visit Provider Surgery
DX: R10.32 Left lower quadrant pain (principal)
CPT/HCPCS: 99204

== ENCOUNTER → 2022-12-13 10:52 | Outpatient (BNVA) | payer BC, SELFPAY | PROVIDERS: PCP Nurse Practitioner Family; Referring Provider Nurse Practitioner Family; Visit Provider Surgery ==

== ENCOUNTER → 2022-12-22 08:01 | Outpatient (BNV) | payer BC, SELFPAY | PROVIDERS: PCP Nurse Practitioner Family; Visit Provider Internal Medicine Cardiovascular Disease | DX: R00.1 Bradycardia, unspecified (principal) | CPT/HCPCS: 93010 ==

== ENCOUNTER 2022-12-24 07:48 | Day surgery (SDC) | payer BC, SELFPAY ==
[2022-12-19 11:09] VITALS: BMI 27.9
--- NOTE | 2022-12-21 09:52 | P.CONAN_ITS ---
Documented by User: Latia Mccracken NP 12/21/22 10:04 HPI - Anesthesia Eval Consult details Narrative: 57yo M for Laparoscopy Exploratory,poss repair of Ventral hernia PMFSH Active Problems Active Problems: All Active Problems (Updated 10/17/22 @ 06:38 by Mayank Loera, [facility]) Pancreatic cyst (Acute) LLQ pain (Acute) Sinusitis (Acute) Diabetes (Acute) Newly diagnosed diabetes (Acute) Bradycardia (Acute) Elevated blood sugar (Acute) Dyspnea on exertion (Acute) Essential hypertension (Acute) Physical exam (Acute) Screening PSA (prostate specific antigen) (Acute) Muscle tightness (Acute) Abdominal pain (Acute) AV block (Acute) Colitis (Acute) Past Medical History Medical History Diabetes GERD (gastroesophageal reflux disease) Hypertensive retinopathy Family History Family History Father No problems noted. Mother Cancer Surgical History Surgical History H/O knee surgery S/P shoulder surgery Social History Social History Housing: House Alcohol intake: current Alcohol intake frequency: a few times a month Patient Tobacco Use Status: Never used Tobacco e-Cigarette/Vaping Use: Never Used Use of substances other than those prescribed or required for medical reasons: No Substance Use Type: Marijuana Are you DNR?: No Advance Directives: No Advance Directives Information Provided: Yes Nutrition Risks: No Nutritional Risk Current occupational status: employed Cognitive needs: No Hearing needs: No Vision needs: No Meds Allergies Allergy/AdvReac Type Severity Reaction Status Date / Time No Known Allergies Allergy Verified 12/13/22 11:04 Exam Exam Date and Time: December 21, 2022 0952 Height,Weight and Vital Signs: Height 6 ft 2 in Weight 98.656 kg Narrative Narrative: ECHO 2020 Conclusions: - Normal left ventricular size and systolic function.? - Diastolic function is normal for age.? - Normal right ventricular cavity size and systolic function.? ? Assessment and Plan Assessment Anesthesia Assessment: Chart Reviewed Documented by User: Soumya Al MD 12/24/22 09:06 PMFSH Past Medical History Medical History Diabetes GERD (gastroesophageal reflux disease) Hypertensive retinopathy Family History Family History Father No problems noted. Mother Cancer Family history of problems with anesthesia: No Surgical History Surgical History H/O knee surgery S/P shoulder surgery History of Problems with Anesthesia: Yes Social History Social History Housing: House Alcohol intake: current Alcohol intake frequency: a few times a month Patient Tobacco Use Status: Never used Tobacco e-Cigarette/Vaping Use: Never Used Use of substances other than those prescribed or required for medical reasons: No Substance Use Type: Marijuana Are you DNR?: No Advance Directives: No Advance Directives Information Provided: Yes Nutrition Risks: No Nutritional Risk Current occupational status: employed Cognitive needs: No Hearing needs: No Vision needs: No Meds Allergies Allergy/AdvReac Type Severity Reaction Status Date / Time No Known Allergies Allergy Verified 12/13/22 11:04 Exam Airway Mallampati Class: II TM Dist: >3cm Neck ROM: Full Heart: rrr Lungs: cta Assessment and Plan Assessment Anesthesia Assessment: Anesthesia Plan Discussed Final Anesthetic Review Family History of Problems with Anesthesia: No History of Problems with Anesthesia: Yes NPO: Yes ASA Class: III Final Preanesthetic Review: No Changes in Pt Med Stat, Meds/Allgs Chart Reviewed, Consent Obtained/Reviewed and Anes Risks/Benef Reviewed Patient Risk: Intermediate Procedure Risk: Intermediate Anesthetic Plan Anesthetic Plan: GA Disposition: Standard PACU
--- NOTE | 2022-12-22 08:01 | ECG_ITS ---
Test Reason : PREOP Blood Pressure : / mmHG Vent. Rate : 059 BPM Atrial Rate : 059 BPM P-R Int : 204 ms QRS Dur : 084 ms QT Int : 414 ms P-R-T Axes : 021 052 052 degrees QTc Int : 409 ms Sinus bradycardia Otherwise normal ECG When compared with ECG of 03-DEC-2020 11:49, No significant change was found Referred By: Mayank Lau Electronically Signed By:Vasu Caldera
[2022-12-22 08:15] LABS: MANUAL DIFF FLAG NO
[2022-12-22 08:20] LABS: Basophils Percent Auto 0.4 % (0-2); Eosinophils Absolute Auto 0.2 X10*3/uL (0.0-0.4); Eosinophils Percent Auto 2.2 % (0-4); Hematocrit 46.9 % (42.0-52.0); Hemoglobin 15.9 g/dl (14.0-18.0); Imm Gran Abs Auto 0.04 X10*3/uL (0.00-0.03); Imm Gran Pct Auto 0.5 % (0.0-0.4); Lymphocytes Absolute Auto 1.8 X10*3/uL (1.2-4.9); Lymphocytes Percent Auto 22.5 % (20-40); Mean Corpuscular HGB Conc 33.9 g/dl (31.0-36.0); Mean Corpuscular Hemoglobin 29.2 pg (27.0-33.0); Mean Corpuscular Volume 86.2 fL (80.0-98.0); Mean Platelet Volume 9.9 fL (9.4-12.4); Monocytes Absolute Auto 0.4 X10*3/uL (0.1-1.2); Monocytes Percent Auto 5.3 % (2-11); Neutrophils Absolute Auto 5.4 x10*3/uL (2.0-8.3); Neutrophils Percent Auto 69.1 % (45-73); Platelet Count 288 X10*3/uL (160-400); Red Blood Count 5.44 X10*6/uL (4.60-5.80); Red Cell Distribution Width 12.6 % (11.0-16.0); White Blood Count 7.8 X10*3/uL (4.8-10.8)
[2022-12-22 09:05] LABS: Appearance Urine Clear; Color Urine Yellow; Glucose Urine UA 100 mg/dL (Negative); Leukocyte Esterase Urine Negative (Negative); Nitrite Urine Negative (Negative); UMIC TRIGGER UACC YES; Urine Blood Negative (Negative); Urine Ketones Negative (Negative); Urine Protein 30 (1+) mg/dL (Neg-Trace)
[2022-12-22 09:10] LABS: Alanine Aminotransferase 28 U/L (0-40); Albumin Level 4.4 g/dL (3.5-5.0); Alkaline Phosphatase 73 U/L (39-117); Anion Gap 11 (12-20); Aspartate Amino Transferase 16 U/L (5-37); Bilirubin Total 0.6 mg/dL (0.0-1.0); Blood Urea Nitrogen 14 mg/dL (9-16); Calcium 9.8 mg/dL (8.4-10.2); Carbon Dioxide 29 mmol/L (22-29); Chloride 103 mmol/L (96-108); Cholesterol 218 mg/dL; Creatinine Clr Calc Pharmacy 106.2; Estimated Glomerular Filt Rate > 60; Glucose Fasting 221 mg/dL (60-99); HDL Cholesterol 43 mg/dL; LDL Cholesterol Calculated 138 mg/dl; Potassium 4.2 mmol/L (3.3-5.1); Sodium 139 mmol/L (135-145); Triglycerides 185 mg/dL
[2022-12-22 09:11] LABS: Bacteria Urine None Seen (None Seen); Hyaline Casts Urine 0-2 /LPF (0-2); RBC Urine 0-2 /HPF (0-2); Squamous Epithelial Cell Urine 0-2 /HPF (0-2); WBC Urine 0-5 /HPF (0-5)
[2022-12-22 09:12] LABS: TSH reflex Free T4 0.48 uIU/mL (0.32-4.0)
[2022-12-22 09:19] LABS: Prostate Specific Antigen Scr 1.07 ng/mL (<0.05-4.0)
[2022-12-24] VITALS (8 sets, daily range): BP systolic 144–213; BP diastolic 79–108; PULSE 52–69; RESP 16; TEMP 36.2–36.7; O2SAT 96–99
[2022-12-24 08:06] LABS: Glucose, Whole Blood 254 mg/dL (60-115)
--- NOTE | 2022-12-24 08:11 | PC.NURSE ---
labs being drawn
[2022-12-24] MEDS: Lactated Ringers 1,000 ML 100 ML IVCONT (08:20)
[2022-12-24 08:24] LABS: Hematocrit 45.5 % (42.0-52.0); Hemoglobin 15.5 g/dl (14.0-18.0); Mean Corpuscular HGB Conc 34.1 g/dl (31.0-36.0); Mean Corpuscular Hemoglobin 29.4 pg (27.0-33.0); Mean Corpuscular Volume 86.2 fL (80.0-98.0); Mean Platelet Volume 10.2 fL (9.4-12.4); Platelet Count 266 X10*3/uL (160-400); Red Blood Count 5.28 X10*6/uL (4.60-5.80); Red Cell Distribution Width 12.7 % (11.0-16.0); White Blood Count 6.9 X10*3/uL (4.8-10.8)
[2022-12-24 08:30] LABS: Anion Gap 13 (12-20); Blood Urea Nitrogen 14 mg/dL (9-16); Calcium 9.4 mg/dL (8.4-10.2); Carbon Dioxide 25 mmol/L (22-29); Chloride 105 mmol/L (96-108); Creatinine Clr Calc Pharmacy 114.8; Estimated Glomerular Filt Rate > 60; Glucose Fasting 234 mg/dL (60-99); Potassium 4.2 mmol/L (3.3-5.1); Sodium 139 mmol/L (135-145)
[2022-12-24 08:31] LABS: Estimated Average Glucose 223 mg/dL; Hemoglobin A1c % 9.4 %
--- NOTE | 2022-12-24 09:19 | PC.NURSE ---
MD MORENO AWARE OF PATIENTS REDNESS TO RLQ ABD.
--- NOTE | 2022-12-24 09:24 | MHC.SHP ---
Pre-Procedural Eval Section A Date of Service: 12/24/22 The patient is an INPATIENT: No Changes since office visit: Yes Patient answered all questions; No Cold of Flu in the past 2 weeks, No New Medical Problems and No Changes in Medication The History & Physical has been completed within 30 days and I have reviewed it.: Yes Section B Chief Complaint: Left lower quadrant pain Allergies: Allergies Allergy/AdvReac Type Severity Reaction Status Date / Time No Known Allergies Allergy Verified 12/13/22 11:04 Plan Diagnosis/Plan: Unchanged I have reviewed the history and physical and performed a pertinent physical examination on my patient. No changes have occurred unless specified. Time Spent With Patient Time: Total time managing care of this patient today ____ minutes.
--- NOTE | 2022-12-24 10:26 | W.PM.OPN ---
Operative Note Operative Note Date of Service: 12/24/22 Narrative: Preoperative diagnosis: Abdominal pain left lower quadrant, possible ventral hernia Postoperative diagnosis: Abdominal pain left lower quadrant, no ventral hernia, possible small incidentally noted left inguinal hernia Procedure: Exploratory laparoscopy Surgeon: Mayank Lau MD Hot Die Press Feeder: None Anesthesia: General Indications for procedure: 57-year-old male patient with persistent pain in the left lower quadrant just lateral to the rectus muscle suggestive of a spigelian hernia. Imaging and examination were negative for significant mass or hernia. Operative findings: Small left inguinal hernia no where near patient's abdominal symptoms. No spigelian or ventral hernia. Specimen: None Estimated blood loss: None Complications: None Procedure details: Patient was brought the OR placed in a supine position. After administering general anesthesia patient's abdomen was prepped with ChloraPrep and draped in a sterile fashion. A surgical time-out was called the consent confirmed. Patient received preoperative antibiotics and Venodyne boots were in place. Local was infiltrated in a periumbilical region. A 5 mm incision was then created and a Veress needle inserted while elevating abdominal cavity with towel clips. After positive drop test the abdomen was insufflated to pressure of 15 mmHg. A 5 mm trocar was then inserted under direct vision. A 5 mm 30 degree scope was then inserted in the abdominal wall examined completely. Bowel was also examined completely. No ventral hernia could be identified throughout the left mid lower quadrant. A small asymptomatic with no incarceration was identified this was felt to be much lower than the specific area of patient's abdominal pain. The right abdomen was also explored and no hernias identified. Small and large bowel are also examined. No evidence of obstruction, inflammation, or infection be identified. CO2 was then evacuated and the trocars removed. Skin was closed in the single incision using a subcuticular 4-0 Polysorb suture. Steri-Strips and Tegaderm were then applied. The patient tolerated the procedure well. He was transferred to PACU in stable condition.
[2022-12-24] MEDS: Labetalol HCL 100 MG/20 ML VIAL 10 MG IVPUSH (10:46)
[2022-12-24] MEDS: oxyCODONE HCl Immed Release 5 MG TABLET 10 MG PO (10:54)
[2022-12-24] MEDS: Acetaminophen 325 MG TABLET 650 MG PO (10:55)
[2022-12-25 10:04] LABS: Carbohydrate Antigen 19-9 15 U/mL (<34)
== END 2022-12-24 12:24 | disposition home or self-care (01) ==
PROVIDERS: Nurse Practitioner; PCP Nurse Practitioner Family; Visit Provider Surgery
PROC: (CPT 49320; principal; 2022-12-24 09:40)
DX: R10.32 Left lower quadrant pain (principal); K40.90 Unilateral inguinal hernia, without obstruction or gangrene, not specified as recurrent; E11.9 Type 2 diabetes mellitus without complications; Z79.84 Long term (current) use of oral hypoglycemic drugs; Z12.5 Encounter for screening for malignant neoplasm of prostate
CPT/HCPCS: 49320; 36415; 80048; 80053; 80061; 81001; 81003; 82947; 83036; 84153; 84443; 85025; 85027; 86301; 93005; J0690; J2405; J3010

== ENCOUNTER → 2022-12-24 07:48 | Outpatient (BNV) | payer BC, SELFPAY | PROVIDERS: PCP Nurse Practitioner Family; Visit Provider Surgery | DX: R10.9 Unspecified abdominal pain (principal) | CPT/HCPCS: 49320 ==

== ENCOUNTER 2022-12-25 11:56 | Outpatient (AMB) | payer BC, SELFPAY ==
[2022-12-25 12:25] VITALS: BP 176/96; PULSE 72; TEMP 35.7; O2SAT 98
--- NOTE | 2022-12-25 12:25 | AM.OFFWIN_ITS ---
Intake Vital Signs 12/25/22 12:25 Height 6 ft 2 in BP 176/96 H Blood Pressure Location Lt brachial Position Sitting Pulse 72 Pulse Source Pulse Oximeter Temp 96.3 F L Temp Source Temporal Artery Scan Pulse Oximetry (%) 98 Oxygen Delivery Method Room Air Intake Visit Reasons: EP, High Blood Pressure (173/100)[phone] Patient Tobacco Use Status: Never used Tobacco Allergies No Known Allergies Allergy (Verified 12/25/22 12:25) Do you need a note to return to daycare/school/sports/work: No HPI EP, High Blood Pressure (173/100)[phone] HPI Details 57-year-old male presents to the office for a sick visit. Patient had a laparoscopic procedure yesterday. he had elevated blood pressure. Patient has been having elevated blood pressure for the past year. He does not have a machine at home. Denies any symptoms of chest pain or blurred vision. [facility] Medical History Diabetes GERD (gastroesophageal reflux disease) Hypertensive retinopathy Surgical History H/O knee surgery S/P shoulder surgery Family History Father No problems noted. Mother Cancer Social History Housing: House Alcohol intake: current Alcohol intake frequency: a few times a month Patient Tobacco Use Status: Never used Tobacco e-Cigarette/Vaping Use: Never Used Substance Use Type: Marijuana Current occupational status: employed Cognitive needs: No Hearing needs: No Vision needs: No Physical Exam Vital Signs: Last Vital Signs Temp 96.3 F L 12/25/22 12:25 Pulse 72 12/25/22 12:25 BP 176/96 H 12/25/22 12:25 Pulse Ox 98 12/25/22 12:25 Oxygen Delivery Method Room Air 12/25/22 12:25 Const General: cooperative and healthy appearing Nutritional Appearance: well nourished Orientation/consciousness: patient oriented x3 Limitations: no limitations HEENT Head: Yes normal to inspection Eyes General: appearance normal, both eyes and all related structures Neck Neck: Yes normal visual inspection Chest Chest palpation & inspection: normal palpation of entire chest wall Resp Effort & Inspection: normal respiratory effort Neuro General: patient oriented x3 Assessment & Plan Assessment & Plan (1) Essential hypertension: Code(s): I10 - Essential (primary) hypertension Plan: Amlodipine added to the regimen. Continue current medications. Follow-up with the primary care provider. Medications: New amlodipine 10 mg PO DAILY 30 tabs 1RF Coding Level of Care Code Est Pt Level 4 (92380) Diagnoses Essential hypertension I10
== END 2022-12-25 13:54 | disposition home or self-care (01) ==
PROVIDERS: PCP Nurse Practitioner Family; Visit Provider Internal Medicine
DX: I10 Essential (primary) hypertension (principal)
CPT/HCPCS: 99214

== ENCOUNTER 2023-01-03 09:20 | Outpatient (AMB) | payer BC, SELFPAY ==
[2023-01-03 09:26] VITALS: BP 136/90; PULSE 83; BMI 27.3
--- NOTE | 2023-01-03 09:26 | MHC.OFFVIS ---
Intake Vital Signs 01/03/23 09:26 Height 6 ft 2 in Weight 213 lb BMI 27.3 BP 136/90 H Blood Pressure Location Rt brachial Position Sitting Pulse 83 Intake Visit Reasons: S/P ex. laparotomy, poss.repair ventral hernia Intake Note: Patient s/p exc laparotomy. Reports umbilical incision healing well. Denies bleeding or pain. 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 Required: No Accompanied by: Self / Same As Patient Allergies No Known Allergies Allergy (Verified 01/03/23 09:28) Medication List - Last Reconciled 01/03/23 by Mayank Lau MD amlodipine 10 mg PO DAILY blood sugar diagnostic (FreeStyle Lite Strips) Use to check blood sugar daily blood-glucose meter (FreeStyle Lite Meter kit) Use to check blood sugar daily famotidine 40 mg PO DAILY PRN 90 days irbesartan 300 mg PO DAILY 30 days lancets (FreeStyle Lancets) Use to check blood sugar daily metformin 1,000 mg PO BID 30 days scopolamine base 1 patch transdermal Q3D PRN 30 days HPI HPI Comments History of Present Illness Details Patient returns 1 week following exploratory laparoscopy for abdominal pain in the left lower quadrant. He reports feeling much improved and denies any ongoing abdominal symptoms. He denies any ongoing incisional pain, bleeding or discharge. [facility] Medical History Diabetes GERD (gastroesophageal reflux disease) Hypertensive retinopathy Surgical History (Updated 01/02/23 @ 09:03 by WING Romero) H/O exploratory laparotomy (12/24/22) H/O knee surgery S/P shoulder surgery Family History Father No problems noted. Mother Cancer Social History Housing: House Alcohol intake: current Alcohol intake frequency: a few times a month Patient Tobacco Use Status: Never used Tobacco e-Cigarette/Vaping Use: Never Used Substance Use Type: Marijuana Current occupational status: employed Cognitive needs: No Hearing needs: No Vision needs: No Physical Exam Vital Signs: Last Vital Signs Pulse 83 01/03/23 09:26 BP 136/90 H 01/03/23 09:26 BMI result Body Mass Index 27.3 Const General: no acute distress Nutritional Appearance: well nourished Orientation/consciousness: patient oriented x3 Limitations: no limitations Resp Effort & Inspection: normal respiratory effort GI Other: Soft, nondistended, nontender, well-healed trocar incision below the umbilicus. Skin Other: Warm, dry, no rash Neuro General: patient oriented x3 Assessment & Plan Assessment & Plan (1) LLQ pain: Code(s): R10.32 - Left lower quadrant pain Plan 57-year-old male patient with a complaint of persistent left lower quadrant abdominal pain suspicious for spigelian hernia. Patient underwent an exploratory laparoscopy with negative findings other than a small left inguinal hernia. Patient feels much improved following the procedure and denies any ongoing abdominal complaints. He may resume normal activity without restrictions. Coding Level of Care Code Global (20874) Diagnoses LLQ pain R10.32
== END 2023-01-03 09:33 | disposition home or self-care (01) ==
PROVIDERS: PCP Nurse Practitioner Family; Visit Provider Surgery
DX: R10.32 Left lower quadrant pain (principal)
CPT/HCPCS: 99024

== ENCOUNTER → 2023-01-03 09:20 | Outpatient (BNVA) | payer BC, SELFPAY | PROVIDERS: PCP Nurse Practitioner Family; Visit Provider Surgery ==

== ENCOUNTER 2023-02-21 08:19 | Outpatient (AMB) | payer BC, SELFPAY ==
[2023-02-21 08:29] VITALS: BP 142/84; PULSE 61; O2SAT 98; BMI 26.9
--- NOTE | 2023-02-21 08:29 | MHC.PC.OV ---
Vital Signs 02/21/23 08:29 Height 6 ft 2 in Weight 209 lb 4 oz BMI 26.9 BP 142/84 H Blood Pressure Location Rt brachial Position Sitting Pulse 61 Pulse Source Pulse Oximeter Pulse Oximetry (%) 98 Oxygen Delivery Method Room Air Intake Visit Reasons: 3m follow up dm Allergies No Known Allergies Allergy (Verified 02/21/23 08:31) Medication List - Last Reconciled 02/21/23 by ALEXY Dick amlodipine 10 mg PO DAILY blood sugar diagnostic (FreeStyle Lite Strips) Use to check blood sugar daily blood-glucose meter (FreeStyle Lite Meter kit) Use to check blood sugar daily famotidine 40 mg PO DAILY PRN 90 days lancets (FreeStyle Lancets) Use to check blood sugar daily metformin 1,000 mg PO BID 30 days scopolamine base 1 patch transdermal Q3D PRN 30 days Tobacco use date assessed: 02/21/23 Dental Screening Dental Screen Date: 02/21/23 Did you have a dental visit in the last 12 months?: Yes Did you have a dental problem in the last 6 months where you did not have access to dental care?: No Was dental information given to patient?: Patient has dentist HPI 3m follow up dm HPI Details Pt is a diabetic, managed with metformin 1000mg bid. Last A1C was 9.4, microalbumin is up to date. Denies polyuria, polydipsia, and neuropathy. Pt denies any signs and symptoms of hypoglycemia and does know how to correct it. Pt does not check his blood sugar at home. reinforced the importanc eof this and will try to get him a dexcom type system for easier and better montior, especially with A1cs in the 9s. Pt will schedule his own eye exam. HTN: Pt reports that his blood pressure at home has been in the 130s/80s. Pt stopped taking irbesartan due to a negative reaction. Refuses anymore BP meds at this time including BRITTNEY/ARB, despite education on the importance of them for diabetes/HTN. Pt is following up with nephrology. [facility] Medical History (Updated 02/21/23 @ 08:57 by ALEXY Dick) Diabetes GERD (gastroesophageal reflux disease) Hypertensive retinopathy Surgical History H/O exploratory laparotomy (12/24/22) H/O knee surgery S/P shoulder surgery Family History Father No problems noted. Mother Cancer Social History Housing: House Alcohol intake: current Alcohol intake frequency: a few times a month Patient Tobacco Use Status: Never used Tobacco e-Cigarette/Vaping Use: Never Used Substance Use Type: Marijuana Current occupational status: employed Cognitive needs: No Hearing needs: No Vision needs: No Questionnaire Thrive Questionnaire Date Thrive assessed: 08/22/22 STEVENSON-7 AMB Questionnaire STEVENSON-7 Date STEVENSON - 7 assessed: 08/22/22 Source: Developed by Drs. Devin Duran, Cyndee Nava, Freddy Gtz and colleagues, with an educational omar from [employer]. Review of Systems Const Reports as per HPI Physical exam (Primary Care) Vital Signs: Last Vital Signs Pulse 61 02/21/23 08:29 BP 142/84 H 02/21/23 08:29 Pulse Ox 98 02/21/23 08:29 Oxygen Delivery Method Room Air 02/21/23 08:29 BMI result Body Mass Index 26.9 Tobacco/Smoking Status: Tobacco use Status Tobacco use date assessed 02/21/23 02/21/23 08:34 Patient Tobacco Use Status Never used Tobacco 02/21/23 08:31 e-Cigarette/Vaping Use Never Used 02/21/23 08:31 Thrive Assessment: Date of Thrive Assessment Date Thrive assessed 08/22/22 02/21/23 08:31 Const General: cooperative Orientation/consciousness: patient oriented x3 Neuro General: patient oriented x3 Extrem Other: bilat feet: + sensation with use of monofilament, mild onychomycosis bilat, partially ingrown right big toenail without signs of infection Psych Appearance: grossly normal Mental Status: mental status grossly normal Speech and movement: Normal speech and movement present Affect: normal affect Attitude: cooperative Thought process: Normal thought process present Thought content: Normal thought content present Insight: Good insight present (Psych) Judgement: Good judgement present (Psych) Assessment and Plan Assessment & Plan (1) Diabetes: Code(s): E11.9 - Type 2 diabetes mellitus without complications Plan: Labs ordered Plan The patient agreed to the use of a medical billing associate for this encounter. Scribed for ALEXY Guerin by Kelsi Agee medical billing associate, on 02/21/2023 at 08:50 EST. Orders: Orders Complete Blood Count Auto Diff Today E11.9 - Type 2 diabetes mellitus without complications Lipid Panel Today E11.9 - Type 2 diabetes mellitus without complications Comprehensive Reva. Panel Fast Today E11.9 - Type 2 diabetes mellitus without complications UA CC w/rflx Micro + Cult Today E11.9 - Type 2 diabetes mellitus without complications Hemoglobin A1c Today E11.9 - Type 2 diabetes mellitus without complications Microalbumin, Random (w Creat) Today E11.9 - Type 2 diabetes mellitus without complications Medications: Refilled amlodipine 10 mg PO DAILY 90 tabs 1RF Coding Level of Care Code Est Pt Level 3 (78196) Diagnoses Diabetes E11.9
== END 2023-02-21 09:05 | disposition home or self-care (01) ==
PROVIDERS: PCP Nurse Practitioner Family; Visit Provider Nurse Practitioner Family
DX: E11.9 Type 2 diabetes mellitus without complications (principal)
CPT/HCPCS: 99213

== ENCOUNTER 2023-05-28 08:27 | Outpatient (AMB) | payer BC, SELFPAY ==
--- NOTE | 2023-05-28 09:02 | MHC.PC.OV ---
Vital Signs 05/28/23 09:03 Height 6 ft 2 in Weight 212 lb BMI 27.2 BP 124/80 Blood Pressure Location Rt brachial Position Sitting Pulse 64 Pulse Source Pulse Oximeter Pulse Oximetry (%) 98 Oxygen Delivery Method Room Air Intake Visit Reasons: 3m diabetes fu Intake Note: Patient here to follow up on diabetes. Allergies No Known Allergies Allergy (Verified 05/28/23 09:22) Medication List - Last Reconciled 05/28/23 by ALEXY Dick amlodipine 10 mg PO DAILY blood sugar diagnostic (FreeStyle Lite Strips) Use to check blood sugar daily blood-glucose meter (FreeStyle Lite Meter kit) Use to check blood sugar daily famotidine 40 mg PO DAILY PRN 90 days lancets (FreeStyle Lancets) Use to check blood sugar daily metformin 1,000 mg PO BID 30 days scopolamine base 1 patch transdermal Q3D PRN 30 days Tobacco use date assessed: 02/21/23 Dental Screening Dental Screen Date: 05/28/23 Did you have a dental visit in the last 12 months?: No Did you have a dental problem in the last 6 months where you did not have access to dental care?: No Was dental information given to patient?: Patient has dentist HPI 3m diabetes fu HPI Details Pt is a diabetic. A1C in office today is 9.0. Due for microalbumin, will order. Denies polyuria, polydipsia, and neuropathy. Pt denies any signs and symptoms of hypoglycemia and does know how to correct it. Pt is working on his diet. He refuses any medications at this time. Explained the importance of medications, pt would like to discuss this next time. Refuses BRITTNEY/ARB and statin. Pt c/o lower back pain. He reports pain on the left side that flares up with physical activity. He also reports increased pain with sitting for long periods. Will order XR. Denies any signs of cauda equina. Refuses pneumonia and flu vaccines. [facility] Medical History (Updated 05/28/23 @ 09:23 by ALEXY Dick) Diabetes GERD (gastroesophageal reflux disease) Hypertensive retinopathy Surgical History H/O exploratory laparotomy (12/24/22) H/O knee surgery S/P shoulder surgery Family History Father No problems noted. Mother Cancer Social History Housing: House Alcohol intake: current Alcohol intake frequency: a few times a month Patient Tobacco Use Status: Never used Tobacco e-Cigarette/Vaping Use: Never Used Substance Use Type: Marijuana Current occupational status: employed Cognitive needs: No Hearing needs: No Vision needs: No Questionnaire Thrive Questionnaire Date Thrive assessed: 08/22/22 STEVENSON-7 AMB Questionnaire STEVENSON-7 Date STEVENSON - 7 assessed: 08/22/22 Source: Developed by Drs. Devin Duran, Cyndee Nava, Freddy Gtz and colleagues, with an educational omar from [employer]. Review of Systems Const Reports as per HPI Physical exam (Primary Care) Vital Signs: Last Vital Signs Pulse 64 05/28/23 09:03 BP 124/80 05/28/23 09:03 Pulse Ox 98 05/28/23 09:03 Oxygen Delivery Method Room Air 05/28/23 09:03 BMI result Body Mass Index 27.2 Tobacco/Smoking Status: Tobacco use Status Tobacco use date assessed 02/21/23 05/28/23 09:03 Patient Tobacco Use Status Never used Tobacco 05/28/23 09:03 e-Cigarette/Vaping Use Never Used 05/28/23 09:03 Thrive Assessment: Date of Thrive Assessment Date Thrive assessed 08/22/22 05/28/23 09:03 Const General: cooperative Orientation/consciousness: patient oriented x3 Resp Effort & Inspection: normal respiratory effort Auscultation: clear to auscultation bilaterally Cardio Rate: regular rate Rhythm: regular rhythm Heart sounds: S1 normal heart sound present and S2 normal heart sound present Back/Spine/Pelvis Other: no lower back pain with heel and toe walking, with pt in supine position no increase in pain with BLE raises and bilat knee to chest raises Neuro General: patient oriented x3 Psych Appearance: grossly normal Mental Status: mental status grossly normal Speech and movement: Normal speech and movement present Affect: normal affect Attitude: cooperative Thought process: Normal thought process present Thought content: Normal thought content present Insight: Good insight present (Psych) Judgement: Good judgement present (Psych) Results AMB Hemoglobin A1c AMB Hemoglobin A1c 9.0 % Last Edit by MESHA Ramos on 05/28/23 09:19 Results Reviewed Results Reviewed: Laboratory Last Values Hgb A1c (Clinic) 9.0 % (4.0-6.0) H 05/28/23 09:18 Assessment and Plan Assessment & Plan (1) Lower back pain: Code(s): M54.50 - Low back pain, unspecified Plan: XR ordered (2) Uncontrolled diabetes mellitus with hyperglycemia: Code(s): E11.65 - Type 2 diabetes mellitus with hyperglycemia Plan: A1C done in office Plan The patient agreed to the use of a vice president medical affairs for this encounter. Scribed for ALEXY Guerin by Kelsi Agee vice president medical affairs, on 05/28/2023 at 09:15 EST. Orders: Orders XR lumbar spine 2-3V Today M54.50 - Low back pain, unspecified AMB Hemoglobin A1c Today Z13.9 - Encounter for screening, unspecified Coding Level of Care Code Est Pt Level 3 (26108) Diagnoses Lower back pain M54.50 Uncontrolled diabetes mellitus with hyperglycemia E11.65
[2023-05-28 09:03] VITALS: BP 124/80; PULSE 64; O2SAT 98; BMI 27.2
== END 2023-05-28 09:27 | disposition home or self-care (01) ==
PROVIDERS: PCP Nurse Practitioner Family; Visit Provider Nurse Practitioner Family
DX: M54.50 Low back pain, unspecified (principal); E11.65 Type 2 diabetes mellitus with hyperglycemia
CPT/HCPCS: 83036; 99213

== ENCOUNTER 2023-05-28 09:27 | Outpatient (REF) | payer BC, SELFPAY ==
[2023-05-28 11:12] LABS: MANUAL DIFF FLAG NO
[2023-05-28 11:29] LABS: Basophils Absolute Auto 0.1 X10*3/uL (0.0-0.2); Basophils Percent Auto 0.7 % (0-2); Eosinophils Absolute Auto 0.3 X10*3/uL (0.0-0.4); Eosinophils Percent Auto 3.3 % (0-4); Hematocrit 45.4 % (42.0-52.0); Hemoglobin 15.7 g/dl (14.0-18.0); Imm Gran Abs Auto 0.02 X10*3/uL (0.00-0.03); Imm Gran Pct Auto 0.3 % (0.0-0.4); Lymphocytes Absolute Auto 1.5 X10*3/uL (1.2-4.9); Lymphocytes Percent Auto 20.3 % (20-40); Mean Corpuscular HGB Conc 34.6 g/dl (31.0-36.0); Mean Corpuscular Hemoglobin 29.6 pg (27.0-33.0); Mean Corpuscular Volume 85.7 fL (80.0-98.0); Mean Platelet Volume 11.2 fL (9.4-12.4); Monocytes Absolute Auto 0.4 X10*3/uL (0.1-1.2); Monocytes Percent Auto 5.7 % (2-11); Neutrophils Absolute Auto 5.2 x10*3/uL (2.0-8.3); Neutrophils Percent Auto 69.7 % (45-73); Platelet Count 274 X10*3/uL (160-400); Red Cell Distribution Width 12.7 % (11.0-16.0); White Blood Count 7.5 X10*3/uL (4.8-10.8)
[2023-05-28 11:30] LABS: Appearance Urine Clear; Color Urine Yellow; Glucose Urine UA 100 mg/dL (Negative); Leukocyte Esterase Urine Negative (Negative); Nitrite Urine Negative (Negative); Specific Gravity - Urine 1.025 (1.005-1.025); UMIC TRIGGER UACC YES; Urine Blood Negative (Negative); Urine Ketones Negative (Negative); Urine Protein 30 (1+) mg/dL (Neg-Trace)
[2023-05-28 11:36] LABS: Bacteria Urine None Seen (None Seen); Hyaline Casts Urine 0-2 /LPF (0-2); RBC Urine 0-2 /HPF (0-2); Squamous Epithelial Cell Urine 0-2 /HPF (0-2); WBC Urine 0-5 /HPF (0-5)
[2023-05-28 11:41] LABS: Estimated Average Glucose 206 mg/dL; Hemoglobin A1c % 8.8 % (<6.0)
[2023-05-28 11:53] LABS: Microalbum/Creatinine Ratio Ur 74.2 ug/mg cr (<30)
[2023-05-28 11:56] LABS: Alanine Aminotransferase 19 U/L (0-40); Albumin Level 4.6 g/dL (3.5-5.0); Alkaline Phosphatase 65 U/L (39-117); Anion Gap 13 (12-20); Aspartate Amino Transferase 15 U/L (5-37); Bilirubin Total 0.6 mg/dL (0.0-1.0); Blood Urea Nitrogen 16 mg/dL (9-16); Calcium 9.6 mg/dL (8.4-10.2); Carbon Dioxide 26 mmol/L (22-29); Chloride 102 mmol/L (96-108); Cholesterol 244 mg/dL (<200); Estimated Glomerular Filt Rate > 60; Glucose Fasting 232 mg/dL (60-99); HDL Cholesterol 52 mg/dL (>40); LDL Cholesterol Calculated 159 mg/dL (<100); Potassium 4.3 mmol/L (3.3-5.1); Sodium 137 mmol/L (135-145); Total Protein 7.2 g/dL (6.5-8.0); Triglycerides 165 mg/dL (<150)
== END 2023-05-28 09:28 | disposition home or self-care (01) ==
LOC: HO.HMGCLDS 09:27
PROVIDERS: PCP Nurse Practitioner Family; Visit Provider Nurse Practitioner Family
DX: E11.9 Type 2 diabetes mellitus without complications (principal)
CPT/HCPCS: 36415; 80053; 80061; 81001; 82043; 82570; 83036; 85025

== ENCOUNTER 2023-06-26 13:41 | Outpatient (AMB) | payer BC, SELFPAY ==
--- NOTE | 2023-06-26 13:47 | HO.NEPHOV ---
HPI HPI Comments History of Present Illness Details I had the privilege of seeing Maverick in follow-up of his proteinuria. He is a diabetic. He was on metformin which was discontinued as the patient does not like it. His hemoglobin A1c is still over 9. He denies any visual disturbances, pedal edema, follow-up the urine, chest pain, shortness of breath, proximal nocturnal dyspnea, orthopnea, pedal edema or orthostatic symptoms. He has been on amlodipine and Avapro in the past but not anymore. He has lost some weight which he claims to be intentional even though his blood sugars have been running high. All other systems have been reviewed and were negative. [facility] Medical History (Updated 06/27/23 @ 13:18 by Sandeep Black MD) Diabetes GERD (gastroesophageal reflux disease) Hypertensive retinopathy Surgical History H/O exploratory laparotomy (12/24/22) H/O knee surgery S/P shoulder surgery Family History Father No problems noted. Mother Cancer Social History Housing: House Alcohol intake: current Alcohol intake frequency: a few times a month Patient Tobacco Use Status: Never used Tobacco e-Cigarette/Vaping Use: Never Used Substance Use Type: Marijuana Current occupational status: employed Cognitive needs: No Hearing needs: No Vision needs: No Vital Signs 06/26/23 13:51 Height 6 ft 2 in Weight 214 lb 4 oz BMI 27.5 BP 118/80 Blood Pressure Location Rt brachial Position Sitting Pulse 87 Pulse Source Pulse Oximeter Pulse Oximetry (%) 98 Oxygen Delivery Method Room Air Physical Exam Vital Signs: Last Vital Signs Pulse 87 06/26/23 13:51 BP 118/80 06/26/23 13:51 Pulse Ox 98 06/26/23 13:51 Oxygen Delivery Method Room Air 06/26/23 13:51 BMI result Body Mass Index 27.5 Const General: comfortable and no acute distress Orientation/consciousness: patient oriented x3 HEENT Head: Yes normocephalic Mouth: Normal oral and palatal mucosa present Eyes EOM: EOMs intact bilaterally Neck Neck: Yes supple Resp Auscultation: clear to auscultation bilaterally Cardio Jugular venous distension: no JVD Rate: regular rate GI Palpation (GI): Soft to palpation Auscultation: normal bowel sounds General: Yes no CVA tenderness Back/Spine/Pelvis Back: no CVA tenderness Skin General skin exam: no rashes or lesions noted Neuro General: patient oriented x3 and moves all extremities Extrem General: Yes no pedal edema Assessment & Plan Assessment & Plan (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 He has longstanding history hypertension. He has lost tremendous amount of weight which he claims to be intentional even though his diabetes remains uncontrolled with A1c over 9, being on no medications. He had been on metformin in the past which has been discontinued by the patient as he does not like it. He will be a candidate for Jardiance. I started him on losartan 25 mg daily. I reiterated the importance of good blood sugar and blood pressure control. He should remain well hydrated and avoid nonsteroidal anti-inflammatories. Follow-up blood work ordered. Losartan side effects were explained. All questions were answered and follow-up given. Orders: Orders Electrolytes 06/26/23 E11.21 - Type 2 diabetes mellitus with diabetic nephropathy Creatinine 06/26/23 E11.21 - Type 2 diabetes mellitus with diabetic nephropathy Protein Creatinine Ratio, Ur 06/26/23 E11.21 - Type 2 diabetes mellitus with diabetic nephropathy Blood Urea Nitrogen 06/26/23 E11.21 - Type 2 diabetes mellitus with diabetic nephropathy Medications: New losartan 25 mg PO DAILY 30 days 30 tabs 3RF Discontinued amlodipine Discontinued Reason: Doctor's Order 10 mg PO DAILY 90 tabs 1RF Coding Level of Care Code Est Pt Level 4 (50909) Diagnoses Diabetic nephropathy associated with type 2 diabetes mellitus E11. Diabetes mellitus type: type 2 Essential hypertension I10 Other proteinuria R80.8 Proteinuria type: other Results Reviewed Nephrology Results: Hgb 15.7 g/dl (14.0-18.0) 05/28/23 WBC 7.5 X10*3/uL (4.8-10.8) 05/28/23 Plt Count 274 X10*3/uL (160-400) 05/28/23 Sodium 137 mmol/L (135-145) 05/28/23 Potassium 4.3 mmol/L (3.3-5.1) 05/28/23 Chloride 102 mmol/L (96-108) 05/28/23 Carbon Dioxide 26 mmol/L (22-29) 05/28/23 BUN 16 mg/dL (9-16) 05/28/23 Creatinine 0.91 mg/dL (0.5-1.4) 05/28/23 Calcium 9.6 mg/dL (8.4-10.2) 05/28/23 Urine Protein 30 (1+) mg/dL (Neg-Trace) H 05/28/23 Urine Creatinine 212.90 mg/dL 05/28/23
[2023-06-26 13:51] VITALS: BP 118/80; PULSE 87; O2SAT 98; BMI 27.5
== END 2023-06-26 14:29 | disposition home or self-care (01) ==
PROVIDERS: PCP Nurse Practitioner Family; Visit Provider Internal Medicine Nephrology
DX: E11.21 Type 2 diabetes mellitus with diabetic nephropathy (principal); I10 Essential (primary) hypertension; R80.8 Other proteinuria
CPT/HCPCS: 99214

== ENCOUNTER → 2023-06-26 13:41 | Outpatient (BNVA) | payer BC, SELFPAY | PROVIDERS: PCP Nurse Practitioner Family; Visit Provider Internal Medicine Nephrology ==

== ENCOUNTER 2023-08-07 09:45 | Outpatient (AMB) | payer BC, SELFPAY ==
[2023-08-07 10:05] VITALS: BP 152/100; PULSE 64; O2SAT 98; BMI 27.9
--- NOTE | 2023-08-07 10:05 | HO.NEPHOV ---
HPI HPI Comments History of Present Illness Details I had the privilege of seeing Maverick in follow-up of his proteinuria. He is a diabetic. He was on metformin which was discontinued as the patient does not like it. His hemoglobin A1c is still over 9. He denies any visual disturbances, pedal edema, follow-up the urine, chest pain, shortness of breath, proximal nocturnal dyspnea, orthopnea, pedal edema or orthostatic symptoms. He has been on amlodipine and Avapro in the past but not anymore. He has lost some weight which he claims to be intentional even though his blood sugars have been running high. He is on losartan 25 mg since last visit with me. All other systems have been reviewed and were negative. [facility] Medical History (Updated 08/07/23 @ 10:26 by Sandeep Black MD) Diabetes GERD (gastroesophageal reflux disease) Hypertensive retinopathy Surgical History H/O exploratory laparotomy (12/24/22) H/O knee surgery S/P shoulder surgery Family History Father No problems noted. Mother Cancer Social History Housing: House Alcohol intake: current Alcohol intake frequency: a few times a month Patient Tobacco Use Status: Never used Tobacco e-Cigarette/Vaping Use: Never Used Substance Use Type: Marijuana Current occupational status: employed Cognitive needs: No Hearing needs: No Vision needs: No Vital Signs 08/07/23 10:05 Height 6 ft 2 in Weight 217 lb 8 oz BMI 27.9 BP 152/100 H Blood Pressure Location Lt brachial Position Sitting Pulse 64 Pulse Source Pulse Oximeter Pulse Oximetry (%) 98 Oxygen Delivery Method Room Air Physical Exam Vital Signs: Last Vital Signs Pulse 64 08/07/23 10:05 BP 152/100 H 08/07/23 10:05 Pulse Ox 98 08/07/23 10:05 Oxygen Delivery Method Room Air 08/07/23 10:05 BMI result Body Mass Index 27.9 Const General: comfortable and no acute distress Orientation/consciousness: patient oriented x3 HEENT Head: Yes normocephalic Mouth: Normal oral and palatal mucosa present Eyes EOM: EOMs intact bilaterally Neck Neck: Yes supple Resp Auscultation: clear to auscultation bilaterally Cardio Jugular venous distension: no JVD Rate: regular rate GI Palpation (GI): Soft to palpation Auscultation: normal bowel sounds General: Yes no CVA tenderness Back/Spine/Pelvis Back: no CVA tenderness Skin General skin exam: no rashes or lesions noted Neuro General: patient oriented x3 and moves all extremities Extrem General: Yes no pedal edema Assessment & Plan Assessment & Plan (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 He has longstanding history hypertension. He has lost tremendous amount of weight which he claims to be intentional even though his diabetes remains uncontrolled with A1c over 9, being on no medications. He had been on metformin in the past which has been discontinued by the patient as he does not like it. He will be a candidate for Jardiance. I ordered HbA1c today. I increased his losartan to 50 mg daily. I reiterated the importance of good blood sugar and blood pressure control. He should remain well hydrated and avoid nonsteroidal anti-inflammatories. Follow-up blood work ordered. He is aware of losartan side effects. All questions were answered and follow-up given. Orders: Orders Hemoglobin A1c Today E11.21 - Type 2 diabetes mellitus with diabetic nephropathy, I10 - Essential (primary) hypertension, R80.9 - Proteinuria, unspecified Creatinine 3 Months E11.21 - Type 2 diabetes mellitus with diabetic nephropathy, I10 - Essential (primary) hypertension, R80.9 - Proteinuria, unspecified Protein Creatinine Ratio, Ur 3 Months E11.21 - Type 2 diabetes mellitus with diabetic nephropathy, I10 - Essential (primary) hypertension, R80.9 - Proteinuria, unspecified Blood Urea Nitrogen 3 Months E11.21 - Type 2 diabetes mellitus with diabetic nephropathy, I10 - Essential (primary) hypertension, R80.9 - Proteinuria, unspecified Electrolytes 3 Months E11.21 - Type 2 diabetes mellitus with diabetic nephropathy, I10 - Essential (primary) hypertension, R80.9 - Proteinuria, unspecified Medications: Changed From losartan 25 mg PO DAILY 30 days 30 tabs 3RF To losartan 50 mg PO DAILY 30 tabs 6RF 30 days Coding Level of Care Code Est Pt Level 4 (41250) Diagnoses Diabetic nephropathy associated with type 2 diabetes mellitus E11. Diabetes mellitus type: type 2 Other proteinuria R80.8 Proteinuria type: other Primary hypertension I10 Hypertension type: primary hypertension Results Reviewed Nephrology Results: Hgb 15.7 g/dl (14.0-18.0) 05/28/23 WBC 7.5 X10*3/uL (4.8-10.8) 05/28/23 Plt Count 274 X10*3/uL (160-400) 05/28/23 Sodium 137 mmol/L (135-145) 05/28/23 Potassium 4.3 mmol/L (3.3-5.1) 05/28/23 Chloride 102 mmol/L (96-108) 05/28/23 Carbon Dioxide 26 mmol/L (22-29) 05/28/23 BUN 16 mg/dL (9-16) 05/28/23 Creatinine 0.91 mg/dL (0.5-1.4) 05/28/23 Calcium 9.6 mg/dL (8.4-10.2) 05/28/23 Urine Protein 30 (1+) mg/dL (Neg-Trace) H 05/28/23 Urine Creatinine 212.90 mg/dL 05/28/23
== END 2023-08-07 10:33 | disposition home or self-care (01) ==
PROVIDERS: PCP Nurse Practitioner Family; Visit Provider Internal Medicine Nephrology
DX: E11.21 Type 2 diabetes mellitus with diabetic nephropathy (principal); R80.8 Other proteinuria; I10 Essential (primary) hypertension
CPT/HCPCS: 99214

== ENCOUNTER → 2023-08-07 09:45 | Outpatient (BNVA) | payer BC, SELFPAY | PROVIDERS: PCP Nurse Practitioner Family; Visit Provider Internal Medicine Nephrology ==

== ENCOUNTER 2023-08-07 10:38 | Outpatient (REF) | payer BC, SELFPAY ==
[2023-08-07 14:09] LABS: Anion Gap 8 (12-20); Blood Urea Nitrogen 14 mg/dL (9-16); Carbon Dioxide 30 mmol/L (22-29); Chloride 103 mmol/L (96-108); Estimated Glomerular Filt Rate > 60; Potassium 4.4 mmol/L (3.3-5.1); Sodium 137 mmol/L (135-145)
[2023-08-07 14:52] LABS: Creatinine Urine 144.71 mg/dL; Total Protein Urine Random 29 mg/dL (<12)
== END 2023-08-07 10:39 | disposition home or self-care (01) ==
LOC: HO.10HDL 10:38
PROVIDERS: Visit Provider Internal Medicine Nephrology
DX: E11.21 Type 2 diabetes mellitus with diabetic nephropathy (principal)
CPT/HCPCS: 36415; 80051; 82565; 82570; 84156; 84520

== ENCOUNTER 2023-08-28 09:52 | Outpatient (AMB) | payer BC, SELFPAY ==
[2023-08-28 10:09] VITALS: BP 140/80; PULSE 70; O2SAT 98; BMI 28.2
--- NOTE | 2023-08-28 10:09 | MHC.PC.OV ---
Vital Signs 08/28/23 10:09 Height 6 ft 2 in Weight 220 lb BMI 28.2 BP 140/80 H Blood Pressure Location Rt brachial Position Sitting Pulse 70 Pulse Source Pulse Oximeter Pulse Oximetry (%) 98 Oxygen Delivery Method Room Air Intake Visit Reasons: 3m diabetes fu Intake Note: pt is here for 3 month follow up for diabetes Orchid Grower Required: No Accompanied by: Self / Same As Patient Allergies No Known Allergies Allergy (Verified 08/28/23 10:10) Medication List - Last Reconciled 08/28/23 by ALEXY Dick amlodipine 2.5 mg PO DAILY blood sugar diagnostic (FreeStyle Lite Strips) Use to check blood sugar daily blood-glucose meter (FreeStyle Lite Meter kit) Use to check blood sugar daily famotidine 40 mg PO DAILY PRN 90 days lancets (FreeStyle Lancets) Use to check blood sugar daily losartan 50 mg PO DAILY 30 days scopolamine base 1 patch transdermal Q3D PRN 30 days Tobacco use date assessed: 08/28/23 Dental Screening Dental Screen Date: 08/28/23 Did you have a dental visit in the last 12 months?: Yes Did you have a dental problem in the last 6 months where you did not have access to dental care?: No Was dental information given to patient?: Patient has dentist HPI 3m diabetes fu HPI Details Pt is a diabetic, on an ARB. A1C in office today is 9.0. Microalbumin is up to date. Denies polyuria, polydipsia, and neuropathy. Pt denies any signs and symptoms of hypoglycemia and does know how to correct it. Pt is very reluctant to take any diabetes meds, reports he will gt his A1C down himself. Eye exam is scheduled. Pt's blood pressure is elevated. Will add amlodipine 2.5mg. Will also start fluvastatin 20mg. Denies chest pain, shortness of breath, headache, dizziness, and blurred vision. Again, pt understands the dangers of uncontrolled diabetes and does not want nay medications to assist with his sugars. [facility] Medical History Diabetes GERD (gastroesophageal reflux disease) Hypertensive retinopathy Surgical History H/O exploratory laparotomy (12/24/22) H/O knee surgery S/P shoulder surgery Family History Father No problems noted. Mother Cancer Social History Housing: House Alcohol intake: current Alcohol intake frequency: a few times a month Patient Tobacco Use Status: Never used Tobacco e-Cigarette/Vaping Use: Never Used Substance Use Type: Marijuana Current occupational status: employed Cognitive needs: No Hearing needs: No Vision needs: No Questionnaire Thrive Questionnaire Date Thrive assessed: 08/28/23 I am a: Patient What is your living situation today?: I have a steady place to live Within the past 12 months, did the food you bought not last and you didn't have the money to get more?: Never true Within the past 12 months, did you worry whether your food would run out before you got money to buy more?: Never true Do you have trouble paying for medicines?: No Do you have trouble getting transportation to medical appointments?: No Do you have trouble paying your heating and electricity bill?: No Do you have trouble taking care of your child, family member or friend?: No Do you have trouble with day-to-day activities such as bathing, preparing meals, shopping, managing finances, etc.?: No Are you currently unemployed and looking for a job?: No Are you interested in more education?: No Please select the resources that you would like help with: None Currently or been in a relationship where the following occur: no concerns reported THRIVE Score: 0 AUDIT C Alcohol Use Questionnaire (AUDIT-C) 1. How often do you have a drink containing alcohol?: Monthly or less 2. How many drinks containing alcohol do you have on a typical day when you are drinking?: 3 or 4 3. How often do you have six or more drinks on one occasion?: Less than monthly Total Score: 3 Score Reviewed/Action Taken: Yes STEVENSON-7 AMB Questionnaire STEVENSON-7 Date STEVENSON - 7 assessed: 08/28/23 Feeling nervous, anxious, or on edge: 0 = Not at all Not being able to stop or control worryin = Not at all Worrying too much about different things: 0 = Not at all Trouble relaxin = Not at all Being so restless that it is hard to sit still: 0 = Not at all Becoming easily annoyed or irritable: 0 = Not at all Feeling afraid as if something awful might happen: 0 = Not at all Total STEVENSON-7 score (0-4 normal; 5-9 mild; 10-14 moderate; 15-21 severe): 0 Source: Developed by Drs. Devin Duran, Cyndee Nava, Freddy Gtz and colleagues, with an educational omar from [employer]. STEVENSON-7 Assessment Billing STEVENSON-7 Assessment Tool: STEVENSON-7 Assessment 23178 Review of Systems Const Reports as per HPI Physical exam (Primary Care) Vital Signs: Last Vital Signs Pulse 70 08/28/23 10:09 BP 140/80 H 08/28/23 10:09 Pulse Ox 98 08/28/23 10:09 Oxygen Delivery Method Room Air 08/28/23 10:09 BMI result Body Mass Index 28.2 Tobacco/Smoking Status: Tobacco use Status Tobacco use date assessed 08/28/23 08/28/23 10:11 Patient Tobacco Use Status Never used Tobacco 08/28/23 10:11 e-Cigarette/Vaping Use Never Used 08/28/23 10:11 Thrive Assessment: Date of Thrive Assessment Date Thrive assessed 08/28/23 08/28/23 10:11 Currently or been in a relationship where the following occur: no concerns reported Const General: cooperative Orientation/consciousness: patient oriented x3 Resp Effort & Inspection: normal respiratory effort Auscultation: clear to auscultation bilaterally Cardio Rate: regular rate Rhythm: regular rhythm Heart sounds: S1 normal heart sound present and S2 normal heart sound present Neuro General: patient oriented x3 Extrem Other: bilat feet: + sensation with use of monofilament, feet intact Psych Appearance: grossly normal Mental Status: mental status grossly normal Speech and movement: Normal speech and movement present Affect: normal affect Attitude: cooperative Thought process: Normal thought process present Thought content: Normal thought content present Insight: Good insight present (Psych) Judgement: Good judgement present (Psych) Results AMB Hemoglobin A1c AMB Hemoglobin A1c 9.0 % Last Edit by Jose Guadalupe Burgess CMA on 08/28/23 10:36 Assessment and Plan Assessment & Plan (1) Hypertension: Code(s): I10 - Essential (primary) hypertension Qualifiers: Hypertension type: primary hypertension Qualified Code(s): I10 - Essential (primary) hypertension Plan: added amlodipine 2.5mg (2) Uncontrolled diabetes mellitus with hyperglycemia: Code(s): E11.65 - Type 2 diabetes mellitus with hyperglycemia Plan: refuses medications for diabetes, he verbalized understanding the dangers of uncontrolled diabetes Plan The patient agreed to the use of a medical economics consultant for this encounter. Scribed for LION Guerin-PAIGE by Kelsi Agee medical economics consultant, on 08/28/2023 at 10:30 EST. Orders: Orders Complete Blood Count Auto Diff Today E11.65 - Type 2 diabetes mellitus with hyperglycemia, I10 - Essential (primary) hypertension AMB Hemoglobin A1c Today Z13.9 - Encounter for screening, unspecified Comprehensive [place]. Panel Fast Today E11.65 - Type 2 diabetes mellitus with hyperglycemia, I10 - Essential (primary) hypertension TSH reflex Free T4 Today E11.65 - Type 2 diabetes mellitus with hyperglycemia, I10 - Essential (primary) hypertension UA CC w/rflx Micro + Cult Today E11.65 - Type 2 diabetes mellitus with hyperglycemia, I10 - Essential (primary) hypertension Lipid Panel Today E11.65 - Type 2 diabetes mellitus with hyperglycemia, I10 - Essential (primary) hypertension Medications: New amlodipine 2.5 mg PO DAILY 90 tabs 0RF fluvastatin 20 mg PO QPM 90 caps 0RF Coding Level of Care Code Est Pt Level 3 (22648) Diagnoses Primary hypertension I10 Hypertension type: primary hypertension Uncontrolled diabetes mellitus with hyperglycemia E11.65 Additional Codes STEVENSON-7 Assessment Billing - STEEVNSON-7 Assessment Tool: STEVENSON-7 Assessment [id number] ([id number])
== END 2023-08-28 10:55 | disposition home or self-care (01) ==
PROVIDERS: PCP Nurse Practitioner Family; Visit Provider Nurse Practitioner Family
DX: I10 Essential (primary) hypertension (principal); E11.65 Type 2 diabetes mellitus with hyperglycemia; Z13.9 Encounter for screening, unspecified
CPT/HCPCS: 83036; 99213

== ENCOUNTER 2023-09-13 08:06 | Outpatient (REF) | payer BC, SELFPAY ==
--- NOTE | ~2023-09-13 | MR_ITS ---
EXAMINATION: MR ABDOMEN WITHOUT AND WITH CONTRAST MR CHOLANGIOPANCREATOGRAPHY CLINICAL INFORMATION: Pancreatic cyst COMPARISON: MRI of abdomen on 10/05/2022 TECHNIQUE: Examination was performed in a high field strength MRI scanner. Multiplanar multisequence MR imaging of the abdomen was performed without IV contrast enhancement. Multiphasic Axial T1-weighted fat-suppressed images of the upper abdomen were obtained after IV injection of 10 mL Gadavist. Coronal T1-weighted fat-suppressed images of the abdomen were obtained following the dynamic axial series. MR cholangiopancreatography was performed with heavily T2 weighted sequences. 3-dimensional reconstruction of image data was performed. This was performed under concurrent direct supervision and monitoring by radiologist. Maximum intensity projection images were constructed. FINDINGS: MR CHOLANGIOPANCREATOGRAPHY: Normal gallbladder without filling defects. Cystic duct is unremarkable. Bilateral intra hepatic bile ducts, common hepatic duct and common bile duct are normal in size without filling defects. Pancreatic duct is normal in size. Possible communication between the uncinate process cysts and the pancreatic duct is demonstrated. LIVER: The liver shows no focal lesion. The calculated hepatic fat percentage is 12.7%, compatible with mild hepatic steatosis. PANCREAS: A T2 hyperintense nonenhancing cystic lesion is seen at medial border of pancreatic uncinate process, measuring 4.7 mm in size (previously 5 mm), series 5 image #26. A second similar T2 hyperintense nonenhancing cystic lesion measuring 5.0 mm is seen at posterior border of pancreatic uncinate process (previously 4.8 mm), series 5 image #27. SPLEEN: Spleen is normal in size without focal lesion. ADRENAL: Bilateral adrenal glands are normal in shape and size. KIDNEYS: Bilateral kidneys are normal in size without focal lesion. No abnormal enhancing mass lesion can be seen in the abdomen. MR/MR abdomen wo/w con IMPRESSION: 1. 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 2. Follow-up with pre and postcontrast MRI abdomen with MRCP sequence every one year x4, then every 2 years x2 to document stability over a minimum of 9 years are recommended by [employer]. 3. Unchanged Mild hepatic steatosis.
[2023-09-13] MEDS: gadobutroL 10 ML VIAL IVPUSH (09:09)
== END 2023-09-13 08:07 | disposition home or self-care (01) ==
LOC: HO.MRI 08:06
PROVIDERS: PCP Nurse Practitioner Family; Visit Provider Nurse Practitioner Family
DX: K86.2 Cyst of pancreas (principal)
CPT/HCPCS: 74183; A9585

== ENCOUNTER 2023-11-08 11:04 | Outpatient (AMB) | payer BC, SELFPAY ==
--- NOTE | 2023-11-08 11:07 | HO.NEPHOV ---
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 He is a diabetic. He was on metformin which was discontinued as the patient does not like it. His hemoglobin A1c is still over 9. He denies any visual disturbances, pedal edema, follow-up the urine, chest pain, shortness of breath, proximal nocturnal dyspnea, orthopnea, pedal edema or orthostatic symptoms. He has been on amlodipine and Avapro in the past but not anymore. He has lost some weight which he claims to be intentional even though his blood sugars have been running high. He is on losartan 50 mg daily. All other systems have been reviewed and were negative. FORMERLY [facility], 1928–1983 Medical History (Updated 09/25/23 @ 07:46 by Mayank Loera, [facility]) Intraductal papillary mucinous neoplasm Diabetes GERD (gastroesophageal reflux disease) Hypertensive retinopathy Surgical History H/O exploratory laparotomy (12/24/22) H/O knee surgery S/P shoulder surgery Family History Father No problems noted. Mother Cancer Social History Housing: House Alcohol intake: current Alcohol intake frequency: a few times a month Patient Tobacco Use Status: Never used Tobacco e-Cigarette/Vaping Use: Never Used Substance Use Type: Marijuana Current occupational status: employed Cognitive needs: No Hearing needs: No Vision needs: No Physical Exam Vital Signs: Last Vital Signs Pulse 72 11/08/23 11:08 BP 144/90 H 11/08/23 11:08 Pulse Ox 98 11/08/23 11:08 Oxygen Delivery Method Room Air 11/08/23 11:08 BMI result Body Mass Index 28.2 Const General: comfortable and no acute distress Orientation/consciousness: patient oriented x3 HEENT Head: Yes normocephalic Mouth: Normal oral and palatal mucosa present Eyes EOM: EOMs intact bilaterally Neck Neck: Yes supple Resp Auscultation: clear to auscultation bilaterally Cardio Jugular venous distension: no JVD Rate: regular rate GI Palpation (GI): Soft to palpation Auscultation: normal bowel sounds General: Yes no CVA tenderness Back/Spine/Pelvis Back: no CVA tenderness Skin General skin exam: no rashes or lesions noted Neuro General: patient oriented x3 and moves all extremities Extrem General: Yes no pedal edema Results Reviewed Nephrology Results: Hgb 15.7 g/dl (14.0-18.0) 05/28/23 WBC 7.5 X10*3/uL (4.8-10.8) 05/28/23 Plt Count 274 X10*3/uL (160-400) 05/28/23 Sodium 137 mmol/L (135-145) 08/07/23 Potassium 4.4 mmol/L (3.3-5.1) 08/07/23 Chloride 103 mmol/L (96-108) 08/07/23 Carbon Dioxide 30 mmol/L (22-29) H 08/07/23 BUN 14 mg/dL (9-16) 08/07/23 Creatinine 0.93 mg/dL (0.5-1.4) 08/07/23 Calcium 9.6 mg/dL (8.4-10.2) 05/28/23 Urine Protein 30 (1+) mg/dL (Neg-Trace) H 05/28/23 Urine Creatinine 144.71 mg/dL 08/07/23 Protein/Creatinin Ratio 0.20 (<0.2) 08/07/23 Assessment & Plan Assessment & Plan (1) Hypertension: Code(s): I10 - Essential (primary) hypertension Category: Medical Qualifiers: Hypertension type: primary hypertension Qualified Code(s): I10 - Essential (primary) hypertension (2) Proteinuria: Code(s): R80.9 - Proteinuria, unspecified Category: Medical Qualifiers: Proteinuria type: other Qualified Code(s): R80.8 - Other proteinuria (3) Diabetic nephropathy: Code(s): E11.21 - Type 2 diabetes mellitus with diabetic nephropathy Category: Medical Qualifiers: Diabetes mellitus type: type 2 Qualified Code(s): E11.21 - Type 2 diabetes mellitus with diabetic nephropathy Plan 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 He has longstanding history hypertension. He has lost tremendous amount of weight which he claims to be intentional even though his diabetes remains uncontrolled with A1c over 9, being on no medications. He had been on metformin in the past which has been discontinued by the patient as he does not like it. He is a great candidate for Jardiance . I discontinued his Amlodipine and increased his losartan to 75 mg daily. I reiterated the importance of good blood sugar and blood pressure control. He should remain well hydrated and avoid nonsteroidal anti-inflammatories. Follow-up blood work ordered. He is aware of losartan side effects. All questions were answered and follow-up given. Orders: Orders Blood Urea Nitrogen Today E11.21 - Type 2 diabetes mellitus with diabetic nephropathy, I10 - Essential (primary) hypertension, R80.8 - Other proteinuria Electrolytes Today E11.21 - Type 2 diabetes mellitus with diabetic nephropathy, I10 - Essential (primary) hypertension, R80.8 - Other proteinuria Protein Creatinine Ratio, Ur Today E11.21 - Type 2 diabetes mellitus with diabetic nephropathy, I10 - Essential (primary) hypertension, R80.8 - Other proteinuria Creatinine Today E11.21 - Type 2 diabetes mellitus with diabetic nephropathy, I10 - Essential (primary) hypertension, R80.8 - Other proteinuria Medications: Changed From losartan 50 mg PO DAILY 30 days 30 tabs 6RF To losartan 75 mg (1.5 x 50 mg) PO DAILY 30 days 45 tabs 6RF Discontinued amlodipine Discontinued Reason: Doctor's Order 2.5 mg PO DAILY 90 tabs 0RF Coding Level of Care Code Est Pt Level 4 (77478) Diagnoses Primary hypertension I10 Hypertension type: primary hypertension Other proteinuria R80.8 Proteinuria type: other Diabetic nephropathy associated with type 2 diabetes mellitus E11.21 Diabetes mellitus type: type 2
[2023-11-08 11:08] VITALS: BP 144/90; PULSE 72; O2SAT 98; BMI 28.2
== END 2023-11-08 11:33 | disposition home or self-care (01) ==
PROVIDERS: PCP Nurse Practitioner Family; Visit Provider Internal Medicine Nephrology
DX: I10 Essential (primary) hypertension (principal); R80.8 Other proteinuria; E11.21 Type 2 diabetes mellitus with diabetic nephropathy
CPT/HCPCS: 99214

== ENCOUNTER → 2023-11-08 11:04 | Outpatient (BNVA) | payer BC, SELFPAY | PROVIDERS: PCP Nurse Practitioner Family; Visit Provider Internal Medicine Nephrology ==

== ENCOUNTER 2023-11-14 10:09 | Outpatient (REF) | payer BC, SELFPAY ==
[2023-11-14 13:12] LABS: Lipase 17 U/L (8-78)
[2023-11-14 13:34] LABS: Carcinoembryonic Antigen < 1.73 ng/mL
[2023-11-14 13:41] LABS: Folate 11.3 ng/mL (> or = 4.0); Vitamin B12 359 pg/mL (200-900)
[2023-11-15 08:04] LABS: Carbohydrate Antigen 19-9 7 U/mL (<34)
[2023-11-18 15:47] LABS: Vitamin D 25-OH, D2 <4 ng/mL; Vitamin D 25-OH, D3 22 ng/mL; Vitamin D 25-OH, Total 22 ng/mL (30-100)
[2023-11-21 12:59] LABS: Transglutaminase Ab IgG <1.0 U/mL; Transglutaminase IgA <1.0 U/mL
== END 2023-11-14 10:10 | disposition home or self-care (01) ==
LOC: HO.LAB 10:09
PROVIDERS: PCP Nurse Practitioner Family; Visit Provider Nurse Practitioner Family
DX: D49.0 Neoplasm of unspecified behavior of digestive system (principal); R10.9 Unspecified abdominal pain; R19.7 Diarrhea, unspecified; E55.9 Vitamin D deficiency, unspecified
CPT/HCPCS: 36415; 82306; 82378; 82607; 82746; 83690; 86301; 86364

== ENCOUNTER 2023-11-14 10:09 | Outpatient (AMB) | payer BC, SELFPAY ==
--- NOTE | 2023-11-14 10:14 | MHC.OFFVIS ---
Vital Signs 11/14/23 10:20 Height 6 ft 2 in Weight 218 lb 4.122 oz BMI 28.0 BP 148/90 H Blood Pressure Location Rt brachial Position Sitting Pulse 80 Pulse Source Pulse Oximeter Pulse Oximetry (%) 98 Oxygen Delivery Method Room Air Intake Visit Reasons: Pancreas Cyst Intake Note: Maverick presents in office today for an initial office visit (pancreas cyst) CC: Pt has hx of diabetes and an exploratory laparotomy within the last year. Pt denies any significant sx or concerns at this time. Pt reports having an MRI in 09/2023. Pt is not confident regarding the significance of the appointment as they feel fine . Pt was not informed by PCP as to why they were being referred. 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 Patient is confused and does not really understand why he is here. Patient states that he is feeling fine does not have any GI concerning symptoms. Reports that he is only taking famotidine on as needed basis. Patient reports that he is feeling well. Occasional postprandial epigastric pain and acid reflux depending on what he eats. When reviewing patient's records patient was referred to us for evaluation of pancreatic cyst. MRI from last year and this year reviewed and compared. Patient denies any family history of pancreatic cancer. Patient's A1c was 9%. Patient states that he was just recently put on medication for diabetes, however does not believe that he is diabetic and does not going to take the medication. [facility] Medical History Intraductal papillary mucinous neoplasm Diabetes GERD (gastroesophageal reflux disease) Hypertensive retinopathy Surgical History H/O exploratory laparotomy (12/24/22) H/O knee surgery S/P shoulder surgery Family History Father No problems noted. Mother Cancer Social History Housing: House Alcohol intake: current Alcohol intake frequency: a few times a month Patient Tobacco Use Status: Never used Tobacco e-Cigarette/Vaping Use: Never Used Substance Use Type: Marijuana Current occupational status: employed Cognitive needs: No Hearing needs: No Vision needs: No Review of Systems Const Denies weight gain and Denies weight loss ENT Reports no additional complaints, Denies dysphagia and Denies odynophagia Card Reports no additional complaints Resp Reports no additional complaints GI Denies abdominal pain, Denies belching, Denies melena, Denies bloating, Denies change in bowel habits, Denies dysphagia, Denies excessive flatus, Denies dyspepsia, Reports heartburn (Occasional), Denies diarrhea, Denies loose stools, Denies nausea, Denies odynophagia and Denies vomiting Reports no additional complaints Musc Reports no additional complaints Neuro Reports no additional complaints Psych Reports no additional complaints Endo Reports no additional complaints Physical Exam Vital Signs: Last Vital Signs Pulse 80 11/14/23 10:20 BP 148/90 H 11/14/23 10:20 Pulse Ox 98 11/14/23 10:20 Oxygen Delivery Method Room Air 11/14/23 10:20 BMI result Body Mass Index 28.0 Const General: healthy appearing and no acute distress Nutritional Appearance: obese Orientation/consciousness: patient oriented x3 Resp Effort & Inspection: normal respiratory effort, able to speak in complete sentences, no tracheal deviation and symmetric chest movement Auscultation: clear to auscultation bilaterally Cardio Rate: regular rate GI Inspection: Yes normal to inspection, No distended and Yes obesity Palpation (GI): Soft to palpation, not firm, nontender and No hepatosplenomegaly present Auscultation: normal bowel sounds General: Yes no CVA tenderness Back/Spine/Pelvis Back: no CVA tenderness Skin General skin exam: elasticity normal, turgor normal and dry skin Neuro General: patient oriented x3 Psych Appearance: grossly normal Mental Status: mental status grossly normal Results Reviewed Results Reviewed: Laboratory Tests 05/28/23 08/28/23 09:31 10:22 Hgb A1c (Clinic) 9.0 H Hemoglobin A1c % 8.8 H Triglycerides 165 H Cholesterol 244 H LDL Cholesterol, Calc 159 H MRI 09/13/2023 IMPRESSION: 1. 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 2. Follow-up with pre and postcontrast MRI abdomen with MRCP sequence every one year x4, then every 2 years x2 to document stability over a minimum of 9 years are recommended by [employer]. 3. Unchanged Mild hepatic steatosis. Assessment & Plan Assessment & Plan (1) Intraductal papillary mucinous neoplasm: Code(s): D49.0 - Neoplasm of unspecified behavior of digestive system Category: Medical (2) GERD (gastroesophageal reflux disease): Code(s): K21.9 - Gastro-esophageal reflux disease without esophagitis Qualifiers: Esophagitis presence: esophagitis presence not specified Qualified Code(s): K21.9 - Gastro-esophageal reflux disease without esophagitis (3) Postprandial epigastric pain: Code(s): R10.13 - Epigastric pain Plan Will rule out pancreatic cancer and stomach cancer origin, will check lipase transglutaminase. Will check vitamin-D B12 and folate levels. Patient will try to avoid dietary triggers and late night snacking. Discussed with patient the importance of controlling his blood sugars as they can contribute to multiple other issues that include gastroparesis, as well as cardiac issues. Patient will start omeprazole in the morning half an hour before breakfast. Avoid dietary triggers and late night snacking. Staying upright for minimum 3 hours after meals discussed with patient. Patient will return in the office in 2 months, sooner on as needed basis. He is agreeable to this plan and verbalizes understanding of instructions. He was given the opportunity to ask questions and all questions answered. Thank you for allowing me to participate in his care Orders: Orders Carbohydrate Antigen 19-9 11/14/23 D49.0 - Neoplasm of unspecified behavior of digestive system Vitamin D 25-OH (D2 and D3) 11/14/23 E55.9 - Vitamin D deficiency, unspecified Carcinoembryonic Antigen 11/14/23 D49.0 - Neoplasm of unspecified behavior of digestive system Lipase 11/14/23 R10.9 - Unspecified abdominal pain Transglutaminase Ab IgG 11/14/23 R10.9 - Unspecified abdominal pain Transglutaminase IgA 11/14/23 R10.9 - Unspecified abdominal pain Vitamin B12 and Folate 11/14/23 R19.7 - Diarrhea, unspecified Medications: New omeprazole 20 mg PO DAILY 30 caps 3RF K21.9 - Gastro-esophageal reflux disease without esophagitis Coding Level of Care Code New Pt Level 4 (96610) Diagnoses Intraductal papillary mucinous neoplasm D49.0 Gastroesophageal reflux disease, unspecified whether esophagitis present K21.9 Esophagitis presence: esophagitis presence not specified Postprandial epigastric pain R10.13 Time Spent (min) 45 Comment 30 minutes spent with patient and additional 15 minutes spent reviewing his records
[2023-11-14 10:20] VITALS: BP 148/90; PULSE 80; O2SAT 98; BMI 28.0
== END 2023-11-14 11:09 | disposition home or self-care (01) ==
PROVIDERS: PCP Nurse Practitioner Family; Visit Provider Nurse Practitioner Family
DX: D49.0 Neoplasm of unspecified behavior of digestive system (principal); K21.9 Gastro-esophageal reflux disease without esophagitis; R10.13 Epigastric pain
CPT/HCPCS: 99204

== ENCOUNTER 2024-01-09 08:53 | Outpatient (AMB) | payer BC, SELFPAY ==
[2024-01-09 08:57] VITALS: BP 138/80; PULSE 76; O2SAT 97; BMI 27.7
--- NOTE | 2024-01-09 08:57 | MHC.PC.OV ---
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 Will order labs. Colon screen is up to date. Due for PSA, will order. Denies dribbling with urination and frequent nocturia, does report weak stream. Pt is a diabetic, on an ARB and a statin. A1C in office today is 8.3. Denies polyuria, polydipsia, and neuropathy. Pt denies any signs and symptoms of hypoglycemia and does know how to correct it. Pt does not check his blood sugar. He refuses any med changes. Refuses pneumonia vaccine. Pt follows up with GI (pancreatic cysts) and nephrology. Eye exam is up to date. [facility] Medical History Intraductal papillary mucinous neoplasm Diabetes GERD (gastroesophageal reflux disease) Hypertensive retinopathy Surgical History H/O exploratory laparotomy (12/24/22) H/O knee surgery S/P shoulder surgery Family History Father No problems noted. Mother Cancer Social History Housing: House Alcohol intake: current Alcohol intake frequency: a few times a month Patient Tobacco Use Status: Never used Tobacco e-Cigarette/Vaping Use: Never Used Substance Use Type: Marijuana Current occupational status: employed Cognitive needs: No Hearing needs: No Vision needs: No Questionnaire PHQ-9 Over the last 2 weeks, how often have you been bothered by any of the following problems? 1. Little interest or pleasure in doing things: not at all 2. Feeling down, depressed, or hopeless: not at all 3. Trouble falling or staying asleep, or sleeping too much: not at all 4. Feeling tired or having little energy: not at all 5. Poor appetite or overeating: not at all 6. Feeling bad about yourself - or that you are a failure or have let yourself or your family down: not at all 7. Trouble concentrating on things, such as reading the newspaper or watching television: not at all 8. Moving or speaking so slowly that other people could have noticed. Or the opposite - being so fidgety or restless that you have been moving around a lot more than usual: not at all 9. Thoughts that you would be better off or of hurting yourself in some way: not at all Total score: 0 Depression Screening Interpretation: Negative Depression Screening Done: Yes 69151 - PHQ-9 Billing: Yes Source: Developed by Drs. Devin Duran, Cyndee Nava, Freddy Gtz and colleagues, with an educational omar from [employer]. Thrive Questionnaire Date Thrive assessed: 01/09/24 I am a: Patient What is your living situation today?: I have a steady place to live Within the past 12 months, did the food you bought not last and you didn't have the money to get more?: Never true Within the past 12 months, did you worry whether your food would run out before you got money to buy more?: Never true Do you have trouble paying for medicines?: No Do you have trouble getting transportation to medical appointments?: No Do you have trouble paying your heating and electricity bill?: No Do you have trouble taking care of your child, family member or friend?: No Do you have trouble with day-to-day activities such as bathing, preparing meals, shopping, managing finances, etc.?: No Are you currently unemployed and looking for a job?: No Are you interested in more education?: No Please select the resources that you would like help with: Housing/Alf Currently or been in a relationship where the following occur: No concerns reported THRIVE Score: 0 AUDIT C Alcohol Use Questionnaire (AUDIT-C) 1. How often do you have a drink containing alcohol?: Monthly or less 2. How many drinks containing alcohol do you have on a typical day when you are drinking?: 3 or 4 3. How often do you have six or more drinks on one occasion?: Never Total Score: 2 Score Reviewed/Action Taken: Yes STEVENSON-7 AMB Questionnaire STEVENSON-7 Date STEVENSON - 7 assessed: 01/09/24 Feeling nervous, anxious, or on edge: 0 = Not at all Not being able to stop or control worryin = Not at all Worrying too much about different things: 0 = Not at all Trouble relaxin = Not at all Being so restless that it is hard to sit still: 0 = Not at all Becoming easily annoyed or irritable: 0 = Not at all Feeling afraid as if something awful might happen: 0 = Not at all Total STEVENSON-7 score (0-4 normal; 5-9 mild; 10-14 moderate; 15-21 severe): 0 Source: Developed by Drs. Devin Duran, Cyndee Nava, Freddy Gtz and colleagues, with an educational omar from [employer]. STEVENSON-7 Assessment Billing STEVENSON-7 Assessment Tool: STEVENSON-7 Assessment 67842 Review of Systems Const Denies chills and Denies fever(s) Eyes Denies blurry vision ENT Denies vertigo, Denies dizziness and Denies sore throat Card Denies chest pain at rest, Denies chest pain with activity, Denies diaphoresis, Denies dyspnea and Denies dyspnea on exertion Resp Denies cough, Denies dyspnea, Denies dyspnea on exertion and Denies wheezing GI Denies abdominal pain, Denies melena, Denies hematochezia, Denies constipation, Denies diarrhea and Denies loose stools Denies hematuria Musc Denies numbness and Denies tingling Skin/Breast Denies lesions Neuro Denies vertigo, Denies dizziness, Denies numbness and Denies tingling Psych Denies anxiety, Denies depression, Denies homicidal ideation, Denies suicidal ideation and Denies other (substance abuse) Aller/Immun Denies wheezing Physical exam (Primary Care) Vital Signs: Last Vital Signs Pulse 76 01/09/24 08:57 BP 138/80 01/09/24 08:57 Pulse Ox 97 01/09/24 08:57 Oxygen Delivery Method Room Air 01/09/24 08:57 BMI result Body Mass Index 27.7 Tobacco/Smoking Status: Tobacco use Status Tobacco use date assessed 08/28/23 01/09/24 08:58 Patient Tobacco Use Status Never used Tobacco 01/09/24 08:58 e-Cigarette/Vaping Use Never Used 01/09/24 08:58 PHQ-9: PHQ-9 Score PHQ-9: Total score 0 01/09/24 09:42 Depression Screening Interpretation: Negative Thrive Assessment: Date of Thrive Assessment Date Thrive assessed 01/09/24 01/09/24 08:58 Currently or been in a relationship where the following occur: No concerns reported Const General: cooperative Nutritional Appearance: well nourished Orientation/consciousness: patient oriented x3 HENMT Head: Yes normal to inspection, Yes normocephalic and Yes atraumatic Ears: TM's normal bilaterally Eyes General: appearance normal, both eyes and all related structures Alignment and Position: alignment normal and position normal Neck Neck: Yes normal visual inspection and Yes no lymphadenopathy Thyroid: Thyroid normal Resp Effort & Inspection: normal respiratory effort Auscultation: clear to auscultation bilaterally Cardio Rate: regular rate Rhythm: regular rhythm Heart sounds: S1 normal heart sound present, S2 normal heart sound present and Murmur heart sound present systolic (faint) GI Palpation (GI): Soft to palpation and nontender Auscultation: normal bowel sounds Other: YORDAN: prostate slightly enlarged, no nodules palpated, smooth central groove Male General Exam: Yes normal external exam Penis: normal penis Scrotum: scrotum normal, testes descended bilaterally and no inguinal hernias Testes: no testicular mass Skin Rashes: no rashes Neuro General: patient oriented x3, moves all extremities, no focal motor deficits and deep tendon reflexes 2+ bilaterally Romberg Test: Negative Extrem Other: bilat feet: + sensation with use of monofilament, feet intact Psych Appearance: grossly normal Mental Status: mental status grossly normal Speech and movement: Normal speech and movement present Affect: normal affect Attitude: cooperative Thought process: Normal thought process present Thought content: Normal thought content present Insight: Good insight present (Psych) Judgement: Good judgement present (Psych) Results AMB Hemoglobin A1c AMB Hemoglobin A1c 8.3 % Last Edit by Jose Guadalupe Burgess CMA on 01/09/24 09:40 Results Reviewed Results Reviewed: Laboratory Last Values Hgb A1c (Clinic) 8.3 % (4.0-6.0) H 01/09/24 09:39 Assessment and Plan Assessment & Plan (1) Encounter for routine adult physical exam with abnormal findings: Code(s): Z00.01 - Encounter for general adult medical examination with abnormal findings Plan: Labs ordered (2) Diabetes: Code(s): E11.9 - Type 2 diabetes mellitus without complications Plan: Labs ordered (3) Screening PSA (prostate specific antigen): Code(s): Z12.5 - Encounter for screening for malignant neoplasm of prostate Plan: PSA ordered (4) Weak urinary stream: Code(s): R39.12 - Poor urinary stream (5) Prostate enlargement: Code(s): N40.0 - Benign prostatic hyperplasia without lower urinary tract symptoms Plan: referring to urology Plan The patient agreed to the use of a director medical economics for this encounter. Scribed for ALEXY Guerin by Kelsi Agee director medical economics, on 01/09/2024 at 09:40 EST. Orders: Orders Comprehensive [place]. Panel Fast Today Z00.01 - Encounter for general adult medical examination with abnormal findings UA CC w/rflx Micro + Cult Today Z00.01 - Encounter for general adult medical examination with abnormal findings Lipid Panel Today Z00.01 - Encounter for general adult medical examination with abnormal findings Prostate Specific Antigen Scr Today Z12.5 - Encounter for screening for malignant neoplasm of prostate Complete Blood Count Auto Diff Today Z00.01 - Encounter for general adult medical examination with abnormal findings TSH reflex Free T4 Today Z00.01 - Encounter for general adult medical examination with abnormal findings AMB Hemoglobin A1c Today Z13.9 - Encounter for screening, unspecified Referrals Urology Referral N40.0 - Benign prostatic hyperplasia without lower urinary tract symptoms, R39.12 - Poor urinary stream Coding Level of Care Code Est Pt Prev Care 40-64y(57219) Diagnoses Encounter for routine adult physical exam with abnormal findings Z00.01 Diabetes E11.9 Screening PSA (prostate specific antigen) Z12.5 Weak urinary stream R39.12 Prostate enlargement N40.0 Additional Codes STEVENSON-7 Assessment Billing - STEVENSON-7 Assessment Tool: STEVENSON-7 Assessment [id number] ([id number])
== END 2024-01-09 09:58 | disposition home or self-care (01) ==
PROVIDERS: PCP Nurse Practitioner Family; Visit Provider Nurse Practitioner Family
DX: Z00.00 Encounter for general adult medical examination without abnormal findings (principal); E11.9 Type 2 diabetes mellitus without complications; Z12.5 Encounter for screening for malignant neoplasm of prostate; R39.12 Poor urinary stream; N40.0 Benign prostatic hyperplasia without lower urinary tract symptoms
CPT/HCPCS: 83036; 99396

== ENCOUNTER 2024-01-20 13:15 | Outpatient (AMB) | payer BC, SELFPAY ==
--- NOTE | 2024-01-20 13:30 | A.OFFVIS_ITS ---
Vital Signs 01/20/24 13:31 Height 6 ft 2 in Weight 220 lb 0.341 oz BMI 28.2 BP 148/98 H Blood Pressure Location Lt brachial Position Sitting Pulse 70 Pulse Source Pulse Oximeter Pulse Oximetry (%) 97 Oxygen Delivery Method Room Air Intake Visit Reasons: GERD, pancreatic cyst Intake Note: Maverick presents in office today for a scheduled FUV. CC; Pt reports that they have remained stable since their last visit. Pt denies any new concerns or sx at this time. Pt denies necessity of any Rx refills at this time. 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 Will check vitamin-D B12 and folate levels. Patient will try to avoid dietary triggers and late night snacking. Discussed with patient the importance of controlling his blood sugars as they can contribute to multiple other issues that include gastroparesis, as well as cardiac issues. Patient will start omeprazole in the morning half an hour before breakfast. Avoid dietary triggers and late night snacking. Staying upright for minimum 3 hours after meals discussed with patient. Patient will return in the office in 2 months, boom ner on as needed basis. He is agreeable to this plan and verbalizes understanding of instructions. He was given the opportunity to ask questions and all questions answered. ? Thank you for allowing me to participate in his care Orders Orders Carbohydrate Antigen 19-9 11/14/23 D49.0 Vitamin D 25-OH (D2 and D3) 11/14/23 E55.9 Carcinoembryonic Antigen 11/14/23 D49.0 Lipase 11/14/23 R10.9 Transglutaminase Ab IgG 11/14/23 R10.9 Transglutaminase IgA 11/14/23 R10.9 Vitamin B12 and Folate 11/14/23 R19.7 Medications New omeprazole 20 mg PO DAILY 30 caps 3RF K21.9 TODAY'S VISIT Patient is here today for follow-up and to discuss lab results. Patient had normal lab results. Reports that he has been feeling fairly well. Occasional acid reflux depending on what he eats. Patient also reports occasional postprandial epigastric pain and bloating. Patient reports that he is moving his bowels well without any issues. Has not taking omeprazole yet. Occasional use of Pepcid. We have discussed his MRI results last visit and we discuss of repeating it again in August of September of next year. Patient denies melena, hematochezia, unintentional weight loss or ribbon like stools. Patient reports that he had colonoscopy more than 10 years ago and it was done at [facility]. He believes the provider that did the colonoscopy retired. [facility] Medical History Intraductal papillary mucinous neoplasm Diabetes GERD (gastroesophageal reflux disease) Hypertensive retinopathy Surgical History H/O exploratory laparotomy (12/24/22) H/O knee surgery S/P shoulder surgery Family History Father No problems noted. Mother Cancer Social History Housing: House Alcohol intake: current Alcohol intake frequency: a few times a month Patient Tobacco Use Status: Never used Tobacco e-Cigarette/Vaping Use: Never Used Substance Use Type: Marijuana Current occupational status: employed Cognitive needs: No Hearing needs: No Vision needs: No Physical Exam Vital Signs: Last Vital Signs Pulse 70 01/20/24 13:31 BP 148/98 H 01/20/24 13:31 Pulse Ox 97 01/20/24 13:31 Oxygen Delivery Method Room Air 01/20/24 13:31 BMI result Body Mass Index 28.2 Results Reviewed Results Reviewed: Laboratory Tests 11/14/23 01/09/24 11:44 09:39 Hgb A1c (Clinic) 8.3 H Lipase 17 Carcinoembryonic Ag < 1.73 CA 19-9 Antigen 7 Vitamin B12 359 25-OH Vitamin D Total 22 L Folate 11.3 Tiss Transglutamin IgG <1.0 Tiss Transglutamin IgA <1.0 Assessment & Plan Assessment & Plan (1) Intraductal papillary mucinous neoplasm: Code(s): D49.0 - Neoplasm of unspecified behavior of digestive system Category: Medical (2) GERD (gastroesophageal reflux disease): Code(s): K21.9 - Gastro-esophageal reflux disease without esophagitis Qualifiers: Esophagitis presence: esophagitis presence not specified Qualified Code(s): K21.9 - Gastro-esophageal reflux disease without esophagitis (3) Postprandial epigastric pain: Code(s): R10.13 - Epigastric pain (4) Pancreatic cyst: Code(s): K86.2 - Cyst of pancreas Category: Medical Plan Patient will start omeprazole daily. Avoid dietary triggers in late night snacking. Staying upright for minimum 3 hours after meals discussed with patient. Patient will start taking vitamin-D daily. Return in the office in 3 months to discuss going for colonoscopy and upper endoscopy. MRI will be repeated in August. Patient is agreeable to this plan and verbalizes understanding of instructions. He was given the opportunity to ask questions and all questions answered. Thank you for allowing me to participate in his care Medications: New cholecalciferol (vitamin D3) 50 mcg PO DAILY 90 caps 3RF R79.89 - Other specified abnormal findings of blood chemistry Refilled omeprazole 20 mg PO DAILY 30 caps 3RF K21.9 - Gastro-esophageal reflux disease without esophagitis Coding Level of Care Code Est Pt Level 4 (34375) Diagnoses Intraductal papillary mucinous neoplasm D49.0 Gastroesophageal reflux disease, unspecified whether esophagitis present K21.9 Esophagitis presence: esophagitis presence not specified Postprandial epigastric pain R10.13 Pancreatic cyst K86.2 Time Spent (min) 35 Comment 20 minutes spent with patient and additional 15 minutes spent reviewing his records
[2024-01-20 13:31] VITALS: BP 148/98; PULSE 70; O2SAT 97; BMI 28.2
== END 2024-01-20 13:57 | disposition home or self-care (01) ==
PROVIDERS: PCP Nurse Practitioner Family; Visit Provider Nurse Practitioner Family
DX: D49.0 Neoplasm of unspecified behavior of digestive system (principal); K21.9 Gastro-esophageal reflux disease without esophagitis; R10.13 Epigastric pain; K86.2 Cyst of pancreas
CPT/HCPCS: 99214

== ENCOUNTER → 2024-01-20 13:15 | Outpatient (BNVA) | payer BC, SELFPAY | PROVIDERS: PCP Nurse Practitioner Family; Visit Provider Nurse Practitioner Family ==

== ENCOUNTER 2024-03-18 10:42 | Outpatient (AMB) | payer BC, SELFPAY ==
--- NOTE | 2024-03-18 10:54 | HO.NEPHOV ---
Vital Signs 03/18/24 10:56 Height 6 ft 2 in Weight 218 lb 6 oz BMI 28.0 BP 130/82 Blood Pressure Location Rt brachial Position Sitting Pulse 76 Pulse Source Pulse Oximeter Pulse Oximetry (%) 98 Oxygen Delivery Method Room Air Intake Visit Reasons: CKD/ 3 MO FU/ Conf Bolt Sorter Required: No Accompanied by: Self / Same As Patient Allergies No Known Allergies Allergy (Verified 03/18/24 10:57) HPI Comments Details: I had the privilege of seeing Maverick in follow-up of his proteinuria. He is a diabetic. He was on metformin in the past which was discontinued as the patient does not like it. His hemoglobin A1c is improving. He denies any visual disturbances, pedal edema, follow-up the urine, chest pain, shortness of breath, proximal nocturnal dyspnea, orthopnea, pedal edema or orthostatic symptoms. He has been on amlodipine and Avapro in the past but not anymore. He is on losartan 75 mg daily. All other systems have been reviewed and were negative. [facility] Medical History (Reviewed 01/20/24 @ 13:31 by Iftikhar Cedillo [facility]) Intraductal papillary mucinous neoplasm Diabetes GERD (gastroesophageal reflux disease) Hypertensive retinopathy Surgical History H/O exploratory laparotomy (12/24/22) H/O knee surgery S/P shoulder surgery Family History Father No problems noted. Mother Cancer Social History Housing: House Alcohol intake: current Alcohol intake frequency: a few times a month Patient Tobacco Use Status: Never used Tobacco e-Cigarette/Vaping Use: Never Used Substance Use Type: Marijuana Current occupational status: employed Cognitive needs: No Hearing needs: No Vision needs: No Review of Systems Const All systems reviewed & are unremarkable except as noted in HPI and below Physical Exam Vital Signs: Last Vital Signs Pulse 76 03/18/24 10:56 BP 130/82 03/18/24 10:56 Pulse Ox 98 03/18/24 10:56 Oxygen Delivery Method Room Air 03/18/24 10:56 BMI result Body Mass Index 28.0 Const General: comfortable and no acute distress Orientation/consciousness: patient oriented x3 HEENT Head: Yes normocephalic Mouth: Normal oral and palatal mucosa present Eyes EOM: EOMs intact bilaterally Neck Neck: Yes supple Resp Auscultation: clear to auscultation bilaterally Cardio Jugular venous distension: no JVD Rate: regular rate GI Palpation (GI): Soft to palpation Auscultation: normal bowel sounds General: Yes no CVA tenderness Back/Spine/Pelvis Back: no CVA tenderness Skin General skin exam: no rashes or lesions noted Neuro General: patient oriented x3 and moves all extremities Extrem General: Yes no pedal edema Results Reviewed Nephrology Results: Sodium 137 mmol/L (135-145) 08/07/23 Potassium 4.4 mmol/L (3.3-5.1) 08/07/23 Chloride 103 mmol/L (96-108) 08/07/23 Carbon Dioxide 30 mmol/L (22-29) H 08/07/23 BUN 14 mg/dL (9-16) 08/07/23 Creatinine 0.93 mg/dL (0.5-1.4) 08/07/23 Urine Creatinine 144.71 mg/dL 08/07/23 Protein/Creatinin Ratio 0.20 (<0.2) 08/07/23 Assessment & Plan Assessment & Plan (1) Essential hypertension: Code(s): I10 - Essential (primary) hypertension Category: Medical Plan 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 He has longstanding history of hypertension. He had been on metformin in the past which has been discontinued by the patient as he does not like it. He is on Jardiance . He could continue losartan 75 mg daily. I reiterated the importance of good blood sugar and blood pressure control. He should remain well hydrated and avoid nonsteroidal anti-inflammatories. Follow-up blood work ordered. He is aware of losartan side effects. All questions were answered and follow-up given Orders: Orders Electrolytes 6 Months I10 - Essential (primary) hypertension Protein Creatinine Ratio, Ur 6 Months I10 - Essential (primary) hypertension Creatinine Today I10 - Essential (primary) hypertension Blood Urea Nitrogen Today I10 - Essential (primary) hypertension Electrolytes Today I10 - Essential (primary) hypertension Blood Urea Nitrogen 6 Months I10 - Essential (primary) hypertension Creatinine 6 Months I10 - Essential (primary) hypertension Coding Level of Care Code Est Pt Level 4 (59733) Diagnoses Essential hypertension I10
[2024-03-18 10:56] VITALS: BP 130/82; PULSE 76; O2SAT 98; BMI 28.0
== END 2024-03-18 11:07 | disposition home or self-care (01) ==
PROVIDERS: PCP Nurse Practitioner Family; Visit Provider Internal Medicine Nephrology
DX: I10 Essential (primary) hypertension (principal)
CPT/HCPCS: 99214

== ENCOUNTER → 2024-03-18 10:42 | Outpatient (BNVA) | payer BC, SELFPAY | PROVIDERS: PCP Nurse Practitioner Family; Visit Provider Internal Medicine Nephrology ==

== ENCOUNTER 2024-03-18 11:10 | Outpatient (REF) | payer BC, SELFPAY ==
[2024-03-18 13:28] LABS: Anion Gap 12 (12-20); Blood Urea Nitrogen 14 mg/dL (9-16); Carbon Dioxide 28 mmol/L (22-29); Chloride 101 mmol/L (96-108); Estimated Glomerular Filt Rate > 60; Potassium 4.3 mmol/L (3.3-5.1); Sodium 137 mmol/L (135-145)
== END 2024-03-18 11:11 | disposition home or self-care (01) ==
LOC: HO.10HDL 11:10
PROVIDERS: Visit Provider Internal Medicine Nephrology
DX: I10 Essential (primary) hypertension (principal)
CPT/HCPCS: 36415; 80051; 82565; 84520

== ENCOUNTER 2024-04-20 13:57 | Outpatient (AMB) | payer BC, SELFPAY ==
[2024-04-20 14:04] VITALS: BP 150/98; PULSE 84; O2SAT 98; BMI 27.3
--- NOTE | 2024-04-20 14:04 | MHC.OFFVIS ---
Vital Signs 04/20/24 14:04 Height 6 ft 2 in Weight 212 lb 8.41 oz BMI 27.3 BP 150/98 H Blood Pressure Location Rt brachial Position Sitting Pulse 84 Pulse Source Pulse Oximeter Pulse Oximetry (%) 98 Oxygen Delivery Method Room Air Intake Visit Reasons: 3 month follow up Intake Note: PRESCRIPTIONS LAST GENERATED omeprazole 20 mg capsule,delayed release?20 mg PO DAILY 30 caps 3RF Henrry,Jessica D 01/20/24 13:45 (Transmitted) cholecalciferol (vitamin D3) 50 mcg (2,000 unit) capsule?50 mcg PO DAILY 90 caps 3RF Henrry,Jessica D 01/20/24 13:48 (Transmitted) Pt still taking medication without difficulty. Pt needs refill of d3 and omeprazole. Pt would like 90 day Rx if possible. Pt is also planning on switching to mail order pharmacy. Relevant Flags or Indicators ? 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 Katarina Maverick presents in office today for a scheduled 3 mos FUV. CC; No recent labs, diagnostics placed. ? Relevant GI Sx as reported per pt? None ? Hx of any recent surgeries? None Buttonhole Machine Operator Required: No Allergies No Known Allergies Allergy (Verified 04/20/24 14:11) HPI HPI 3 month follow up: Details: LAST VISIT 01/20/2024 Intraductal papillary mucinous neoplasm GERD (gastroesophageal reflux disease) Postprandial epigastric pain Pancreatic cyst Plan Patient will start omeprazole daily. Avoid dietary triggers in late night snacking. Staying upright for minimum 3 hours after meals discussed with patient. Patient will start taking vitamin-D daily. Return in the office in 3 months to discuss going for colonoscopy and upper endoscopy. MRI will be repeated in August. Patient is agreeable to this plan and verbalizes understanding of instructions. He was given the opportunity to ask questions and all questions answered. ? Thank you for allowing me to participate in his care Medications New cholecalciferol (vitamin D3) 50 mcg PO DAILY 90 caps 3RF R79.89 Refilled omeprazole 20 mg PO DAILY 30 caps 3RF K21.9 TODAY'S VISIT: Patient is here today for follow-up as well as discuss going for colonoscopy and possible upper endoscopy. Patient reports left upper and left lower quadrant pain that continues. Not sure if it is related to him having bowel movements. Patient reports the pain as cramping. Reports also abdominal bloating. Patient denies any melena, hematochezia. Due to go for colonoscopy which will be discussing today. Patient will be sent for upper endoscopy to rule out gastritis, esophagitis. He will be due to go for MRI as recommended by radiologist to evaluate his pancreas for change in intraductal papillary mucinous neoplasm. Patient denies any nausea or vomiting. Currently is taking omeprazole daily and reports that his symptoms of acid reflux are suppressed for the most part. Patient denies dyspepsia, dysphagia or odynophagia. Denies any family history of colorectal cancer. No issues with anesthesia in the past. Not on any anticoagulation medication. No history of sleep apnea. Patient denies any cardiac or respiratory symptoms [facility] Medical History Intraductal papillary mucinous neoplasm Diabetes GERD (gastroesophageal reflux disease) Hypertensive retinopathy Surgical History H/O exploratory laparotomy (12/24/22) H/O knee surgery S/P shoulder surgery Family History Father No problems noted. Mother Cancer Social History Housing: House Alcohol intake: current Alcohol intake frequency: a few times a month Patient Tobacco Use Status: Never used Tobacco e-Cigarette/Vaping Use: Never Used Substance Use Type: Marijuana Current occupational status: employed Cognitive needs: No Hearing needs: No Vision needs: No Physical Exam Vital Signs: Last Vital Signs Pulse 84 04/20/24 14:04 BP 150/98 H 04/20/24 14:04 Pulse Ox 98 04/20/24 14:04 Oxygen Delivery Method Room Air 04/20/24 14:04 BMI result Body Mass Index 27.3 Assessment & Plan Assessment & Plan (1) Pancreatic cyst: Code(s): K86.2 - Cyst of pancreas Category: Medical (2) LLQ pain: Code(s): R10.32 - Left lower quadrant pain Category: Medical (3) Intraductal papillary mucinous neoplasm: Code(s): D49.0 - Neoplasm of unspecified behavior of digestive system Category: Medical (4) GERD (gastroesophageal reflux disease): Code(s): K21.9 - Gastro-esophageal reflux disease without esophagitis (5) Positive colorectal cancer screening using Cologuard test: Code(s): R19.5 - Other fecal abnormalities (6) Postprandial abdominal bloating: Code(s): R14.0 - Abdominal distension (gaseous) Plan Will schedule his MRI next visit. Patient will be due to go after September of 2024. Message sent to surgical schedulers to book upper endoscopy and colonoscopy for patient. Patient is on PPI and occasionally breakthrough acid reflux reported. Newly diagnosed diabetic. What to expect before during and after procedure discussed with patient. Stressed the importance of good bowel prep as well as clear liquid diet with patient. Patient denies cardiac or respiratory symptoms. No issues with anesthesia in the past. I will see patient after the procedure, sooner on as needed basis. He is agreeable to this plan and verbalizes understanding of instructions. He was given the opportunity to ask questions and all questions answered. Thank you for allowing me to participate in his care Orders: Orders MR LU 5 Months K86.2 - Cyst of pancreas Medications: New cholecalciferol (vitamin D3) (Vitamin D3) 50 mcg PO DAILY 90 tabs 3RF bisacodyl (Dulcolax (bisacodyl)) take 4 tabs at noon the day before your colonoscopy 20 mg (4 x 5 mg) PO ONCE 4 tabs 0RF 1 day Z12.11 - Encounter for screening for malignant neoplasm of colon polyethylene glycol 3350 (Miralax) As directed by gastroenterology department at [facility] 238 grams PO ONCE 238 grams 0RF Z12.11 - Encounter for screening for malignant neoplasm of colon Refilled omeprazole 20 mg PO DAILY 90 caps 3RF K21.9 - Gastro-esophageal reflux disease without esophagitis Discontinued famotidine Discontinued Reason: Patient no longer taking 40 mg PO DAILY 90 days PRN 90 tabs 0RF GERD Coding Level of Care Code Est Pt Level 4 (43742) Diagnoses Pancreatic cyst K86.2 LLQ pain R10.32 Intraductal papillary mucinous neoplasm D49.0 GERD (gastroesophageal reflux disease) K21.9 Positive colorectal cancer screening using Cologuard test R19.5 Postprandial abdominal bloating R14.0 Time Spent (min) 35 Comment 20 minutes spent with patient and additional 15 minutes spent reviewing his records
== END 2024-04-20 14:32 | disposition home or self-care (01) ==
PROVIDERS: PCP Nurse Practitioner Family; Visit Provider Nurse Practitioner Family
DX: K86.2 Cyst of pancreas (principal); R10.32 Left lower quadrant pain; D49.0 Neoplasm of unspecified behavior of digestive system; K21.9 Gastro-esophageal reflux disease without esophagitis; R19.5 Other fecal abnormalities; R14.0 Abdominal distension (gaseous)
CPT/HCPCS: 99214

== ENCOUNTER 2024-05-04 07:46 | Outpatient (AMB) | payer BC, SELFPAY ==
--- NOTE | 2024-05-04 08:00 | A.OFFVIS_ITS ---
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 Required: No Accompanied by: Self / Same As Patient Allergies No Known Allergies Allergy (Verified 05/04/24 08:58) Medication List - Last Reconciled 05/04/24 by ALEXY Martin bisacodyl (Dulcolax (bisacodyl)) 20 mg (4 x 5 mg) PO ONCE 1 day blood sugar diagnostic (FreeStyle Lite Strips) Use to check blood sugar daily blood-glucose meter (FreeStyle Lite Meter kit) Use to check blood sugar daily cholecalciferol (vitamin D3) (Vitamin D3) 50 mcg PO DAILY lancets (FreeStyle Lancets) Use to check blood sugar daily losartan 75 mg (1.5 x 50 mg) PO DAILY 30 days omeprazole 20 mg PO DAILY polyethylene glycol 3350 (Miralax) 238 grams PO ONCE scopolamine base 1 patch transdermal Q3D PRN 30 days HPI Comments Details: Maverick Ashby is a very pleasant 58-year-old male patient of Dr. Velazquez. He has a past medical history of diabetes, GERD, and hypertensive retinopathy. He presents to the office today as a new patient for BPH and weak urinary stream. In discussion with the patient today he reports having followed up with his PCP at which time he recommendations were made for urology referral for further assessment evaluation. However, patient denies any bothersome urinary issues. In review of patient's chart it appears PSAs have been ordered and obtained. These results were reviewed with the patient today. PSAs: 05/24 1.2, 12/23 1.1 He also undergoes surveillance monitoring of pancreatic cyst and has undergone MRI imaging that notes bilateral kidneys are normal in size without focal lesion, enhancing masses and or lesions seen in the abdomen. He discusses following up with Dr. Arizmendi for Nephrology. We discussed importance of management of diabetes for improvement in overall health and well-being. In review of patient's chart it appears A1c 01/24 8.3. When asked he denies urinary urgency, urinary frequency, incontinence, nocturia, hematuria, dysuria, foul smelling urine, changes to urinary stream, flank pain, fever, and or chills. He is happy with his current voiding parameters. In office urinalysis results reviewed with the patient today pH 5.5 2+ glucosuria. We discussed importance of adequate hydration relation to overall health and well-being as well as glucosuria. YORDAN offered however he reports having had with PCP. He otherwise offers no other issues or concerns at this time. [facility] Medical History Intraductal papillary mucinous neoplasm Diabetes GERD (gastroesophageal reflux disease) Hypertensive retinopathy Surgical History H/O exploratory laparotomy (12/24/22) H/O knee surgery S/P shoulder surgery Family History Father No problems noted. Mother Cancer Social History Housing: House Alcohol intake: current Alcohol intake frequency: a few times a month Patient Tobacco Use Status: Never used Tobacco e-Cigarette/Vaping Use: Never Used Substance Use Type: Marijuana Current occupational status: employed Cognitive needs: No Hearing needs: No Vision needs: No Review of Systems Const All systems reviewed & are unremarkable except as noted in HPI and below Physical Exam Const General: cooperative, healthy appearing, comfortable, no acute distress, well developed, alert and awake Orientation/consciousness: patient oriented x3 Limitations: no limitations HEENT Head: Yes normal to inspection, Yes normocephalic and Yes atraumatic Ears: hearing grossly normal bilaterally Eyes General: appearance normal, both eyes and all related structures Neck Neck: Yes normal visual inspection and Yes trachea midline Chest Chest palpation & inspection: normal inspection of the chest Resp Effort & Inspection: normal respiratory effort and able to speak in complete sentences Cardio Rate: regular rate GI Inspection: Yes normal to inspection General: Yes no CVA tenderness Back/Spine/Pelvis Back: no CVA tenderness Skin General skin exam: no rashes or lesions noted Neuro General: patient oriented x3 Extrem General: Yes normal to inspection Psych Appearance: grossly normal and well kempt Mental Status: mental status grossly normal Speech and movement: Normal speech and movement present and Clear speech present Affect: normal affect Attitude: cooperative Thought process: Normal thought process present Thought content: Normal thought content present Insight: Fair insight present (Psych) Judgement: Fair judgement present (Psych) Results AMB Urinalysis, Automated UA Leukoctes 0 Marline/uL Last Edit by Daniel Winslowisidro on 05/04/24 08:25 UA Nitrite Last Edit by Daniel Winslowisidro on 05/04/24 08:25 UA Urobilinogen 0.2 mg/dL Last Edit by Perfectoyoniradha Winslowisidro on 05/04/24 08:25 UA Protein 15 mg/dL Last Edit by Perfectoyoniradha Winslowisidro on 05/04/24 08:25 UA pH 5.5 Last Edit by Daniel Winslowisidro on 05/04/24 08:25 UA Blood 0 Edy/uL Last Edit by Perfectoyoniradha Winslowisidro on 05/04/24 08:25 UA Specific [place] 1.025 Last Edit by Perfectoyoniradha Winslowisidro on 05/04/24 08:25 UA Ketone Negative Last Edit by Perfectotessy Naylaisidro on 05/04/24 08:25 UA Bilirubin 0 mg/dL Last Edit by Perfectotessy Naylaisidro on 05/04/24 08:25 UA Glucose 500 mg/dL Last Edit by Daniel Naylaisidro on 05/04/24 08:25 Results Reviewed Results Reviewed: Laboratory Last Values Urine pH (Auto) 5.5 05/04/24 08:24 Specific [place] (Auto) 1.025 05/04/24 08:24 Urine Protein (Auto) 15 mg/dL 05/04/24 08:24 Glucose (UA)(Auto) 500 mg/dL 05/04/24 08:24 Urine Ketones (Auto) Negative 05/04/24 08:24 Urine Blood (Auto) 0 Edy/uL 05/04/24 08:24 Urine Bilirubin (Auto) 0 mg/dL 05/04/24 08:24 Urine Urobilinogen (Auto) 0.2 mg/dL 05/04/24 08:24 Leukocyte Esterase (Auto) 0 Marline/uL 05/04/24 08:24 Assessment & Plan Assessment & Plan (1) Prostate enlargement: Code(s): N40.0 - Benign prostatic hyperplasia without lower urinary tract symptoms Category: Medical (2) Weak urinary stream: Code(s): R39.12 - Poor urinary stream Category: Medical Plan In office urinalysis results reviewed with the patient today; as noted above. Previous PSA results reviewed with the the patient today; as noted above. Patient currently denies any bothersome urinary issues or concerns. We discussed obtaining bladder ultrasound for further assessment evaluation; however patient does not feel he has any bothersome urinary issues. We discussed importance of management of diabetes for overall health and well- being. YORDAN offered however patient has had this performed with PCP. Will continue with surveillance monitoring Will obtain PSA now and in 1 year as last PSA was in 2022. Follow-up in 1 year with lab and PVR; or sooner with any issues, concerns, and or questions. Orders: Orders AMB Urinalysis Automated Today Z13.9 - Encounter for screening, unspecified Prostate Specific Antigen Today N40.0 - Benign prostatic hyperplasia without lower urinary tract symptoms Prostate Specific Antigen 1 Year N40.0 - Benign prostatic hyperplasia without lower urinary tract symptoms Patient Instructions: The patient had an opportunity to ask questions regarding the treatment plan. All questions were answered. Physical exam, labs, and imaging were discussed and reviewed in detail. As well as risks, benefits, and discussion of treatment choices. No major barriers to understanding were identified. The patient e xpressed understanding and agreement with the above treatment plan. The patient was made aware they should contact our office by phone for worsening of their current condition, the appearance of new symptoms, or with any questions or concerns. Compliance is encouraged with any medications and follow up testing that is ordered. It is a privilege to be allowed the opportunity to participate in? your urological care.? Again, if you have any questions or concerns If you have any questions or concerns please do not hesitate to contact me. The office is [phone]. This note is constructed using voice recognition software. While every effort has been made to ensure accuracy lining marker errors may have been included. Yours sincerely, ALEXY Martin Coding Level of Care Code New Pt Level 3 (68654) Diagnoses Prostate enlargement N40.0 Weak urinary stream R39.12
== END 2024-05-04 08:37 | disposition home or self-care (01) ==
PROVIDERS: PCP Nurse Practitioner Family; Visit Provider Nurse Practitioner Family
DX: N40.0 Benign prostatic hyperplasia without lower urinary tract symptoms (principal); R39.12 Poor urinary stream; Z13.9 Encounter for screening, unspecified
CPT/HCPCS: 99203

== ENCOUNTER → 2024-05-04 07:46 | Outpatient (BNVA) | payer BC, SELFPAY | PROVIDERS: PCP Nurse Practitioner Family; Visit Provider Nurse Practitioner Family | DX: N40.1 Benign prostatic hyperplasia with lower urinary tract symptoms (principal); R39.12 Poor urinary stream; E11.9 Type 2 diabetes mellitus without complications | CPT/HCPCS: 81003 ==

== ENCOUNTER 2024-06-10 19:05 | Emergency (ER) | payer BC, SELFPAY ==
--- NOTE | ~2024-06-10 | CT_ITS ---
CLINICAL HISTORY: neck pain stiffness CT cervical spine without contrast Comparison: None Findings: Vertebral alignment is within normal limits. Multilevel disc space narrowing and endplate osteophyte formation, as well as facet hypertrophy. No acute fractures or dislocations. Visualized intracranial contents are unremarkable. No cervical fluid collections or masses. No consolidation or effusion at the lung apices. IMPRESSION: No acute findings. This document has been electronically signed by: Chico Leavitt MD on 06/10/2024 19:54:06
[2024-06-10 19:14] VITALS: BP 138/86; PULSE 111; RESP 18; TEMP 37.1; O2SAT 96; BMI 26.3
--- NOTE | 2024-06-10 19:15 | ED_ITS ---
HPI - Extremity Injury (Upper) General Chief Complaint: Neck Pain/Injury Stated Complaint: R shoulder and neck pain since last Related Data Previous Rx's ?Medication ?Instructions ?Recorded blood sugar diagnostic (FreeStyle #100 ea 12/06/21 Lite Strips) blood-glucose meter (FreeStyle #1 ea 12/06/21 Lite Meter kit) lancets 28 gauge (FreeStyle #100 ea 12/06/21 Lancets) scopolamine base 1 mg over 3 days 1 patch transdermal Q3D PRN nausea 05/23/22 transdermal patch and vomiting 30 days #24 ea losartan 50 mg tablet 75 mg (1.5 x 50 mg) PO DAILY 30 11/08/23 days #45 tabs bisacodyl 5 mg tablet,delayed 20 mg (4 x 5 mg) PO ONCE 1 day #4 04/20/24 release (Dulcolax (bisacodyl)) tabs cholecalciferol (vitamin D3) 50 50 mcg PO DAILY #90 tabs 04/20/24 mcg (2,000 unit) tablet (Vitamin D3) omeprazole 20 mg capsule,delayed 20 mg PO DAILY #90 caps 04/20/24 release polyethylene glycol 3350 17 238 g PO ONCE #238 grams 04/20/24 gram/dose oral powder (Miralax) Allergies Allergy/AdvReac Type Severity Reaction Status Date / Time No Known Allergies Allergy Verified 06/10/24 19:17 [facility] Past Medical History Medical History Intraductal papillary mucinous neoplasm Diabetes GERD (gastroesophageal reflux disease) Hypertensive retinopathy Surgical History H/O exploratory laparotomy (12/24/22) H/O knee surgery S/P shoulder surgery Family History Family History Father No problems noted. Mother Cancer Social History Social History Housing: House Alcohol intake: current Alcohol intake frequency: a few times a month Patient Tobacco Use Status: Never used Tobacco e-Cigarette/Vaping Use: Never Used Substance Use Type: Marijuana Advance Directives: No Advance Directives Information Provided: No Do you have a plan to hurt others: No Plan Current occupational status: employed Cognitive needs: No Hearing needs: No Vision needs: No Physical Exam Vital Signs: Vital Signs: Last Vital Signs Temp 97.9 F 06/10/24 23:37 Pulse 88 06/10/24 23:37 Resp 20 06/10/24 23:37 BP 153/92 H 06/10/24 23:37 Pulse Ox 97 06/10/24 23:37 O2 Del Method Room Air 06/10/24 23:37 BMI result Body Mass Index 26.3 Course Course Course Narrative: This is a Rapid Medical Exam performed in triage by Lidia Renee PA-C. Full HPI, ROS and PE to be performed by primary ED provider. 58 yo M w/pmhx HTN, DM, presenting to the ED c/o right sided neck pain since last radiating to R shoulder. 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 denies known injury/fall PE: +R sided paraspinal ttp. limited ROM 2/2 pain Plan: cervical spine CT, pain control Discharge Plan Discharge Clinical Impression: Neck pain Patient Disposition: Left W/O Completing Treatment Prescriptions: No Action (DME) FreeStyle Lite Strips Strip See Rx Instructions .Route Qty: 100 0RF Rx Instructions: Use to check blood sugar daily (DME) blood-glucose meter [FreeStyle Lite Meter] Kit See Rx Instructions .Route Qty: 1 0RF Rx Instructions: Use to check blood sugar daily (DME) lancets [FreeStyle Lancets] 28 gauge misc See Rx Instructions .Route Qty: 100 0RF Rx Instructions: Use to check blood sugar daily scopolamine base 1 mg over 3 days patch 3 day 1 patch transdermal Q3D PRN (Reason: nausea and vomiting) 30 Days Qty: 24 3RF losartan 50 mg tablet 75 mg PO DAILY 30 Days Qty: 45 6RF omeprazole 20 mg capsule,delayed release(DR/EC) 20 mg PO DAILY Qty: 90 3RF cholecalciferol (vitamin D3) [Vitamin D3] 50 mcg (2,000 unit) tablet 50 mcg PO DAILY Qty: 90 3RF bisacodyl [Dulcolax (bisacodyl)] 5 mg tablet,delayed release (DR/EC) 20 mg PO ONCE 1 Days Qty: 4 0RF Rx Instructions: take 4 tabs at noon the day before your colonoscopy polyethylene glycol 3350 [Miralax] 17 gram/dose powder 238 g PO ONCE Qty: 238 0RF Rx Instructions: As directed by gastroenterology department at [facility] Discharge Date/Time: 06/11/24 02:01
[2024-06-10 23:37] VITALS: BP 153/92; PULSE 88; RESP 20; TEMP 36.6; O2SAT 97
--- NOTE | 2024-06-11 01:59 | PC.NURSE ---
Pt left without completing tx from room emc 5 . Did not wish to wait to be seen by doctor any longer. Ambulated out of tx room with steady gait, with .
== END 2024-06-11 02:01 | disposition left against medical advice (07) ==
PROVIDERS: Emergency Provider Emergency Medicine
DX: M54.2 Cervicalgia (principal); M25.511 Pain in right shoulder; Z79.899 Other long term (current) drug therapy
CPT/HCPCS: 72125; 99283; 99284

== ENCOUNTER → 2024-06-10 19:16 | Outpatient (BNV) | payer BC, SELFPAY | PROVIDERS: Visit Provider Radiology Diagnostic Radiology | DX: M54.2 Cervicalgia (principal) | CPT/HCPCS: 72125 ==

== ENCOUNTER 2024-07-21 09:47 | Outpatient (AMB) | payer BC, SELFPAY ==
[2024-07-21 10:24] VITALS: BP 138/84; PULSE 75; RESP 20; TEMP 36.7; O2SAT 97; BMI 26.6
--- NOTE | 2024-07-21 10:24 | A.OFFPC_ITS ---
Vital Signs 07/21/24 10:24 Height 6 ft 2 in Weight 207 lb BMI 26.6 BP 138/84 Blood Pressure Location Rt brachial Position Sitting Respiration 20 Pulse 75 Pulse Source Pulse Oximeter Temp 98.0 F Temp Source Oral Pulse Oximetry (%) 97 Oxygen Delivery Method Room Air Intake Visit Reasons: 6 month follow up Intake Note: pt is here for 6 mon f/up Site Worker Required: No Accompanied by: Self / Same As Patient Allergies No Known Allergies Allergy (Verified 07/21/24 10:24) Tobacco use date assessed: 07/21/24 Dental Screening Dental Screen Date: 07/21/24 Did you have a dental visit in the last 12 months?: Yes Did you have a dental problem in the last 6 months where you did not have access to dental care?: No Was dental information given to patient?: Patient has dentist HPI 6 month follow up HPI Details Chief Complaint Difficulty managing diabetes and refusal of medication. History of Present Illness The patient is a 58-year-old male presenting with difficulty managing diabetes. Despite a history of Diabetes Mellitus, the patient's Hemoglobin A1c is critically elevated at 10.9%, indicating poor glycemic control. The patient describes a structured diet regimen but admits to increased intake, which includes high-sugar yogurt in the mornings, chicken wings for lunch, and a small dinner. He has a rigid approach to his diet but lacks awareness of sugar content, particularly in yogurt. The patient has been neglecting regular glucose monitoring and expressly refuses to initiate any antidiabetic medications, in cluding GLP-1 receptor agonists and SGLT-2 inhibitors. He has not been adhering to recommendations to commence pharmacological interventions and does not monitor his blood sugar levels at home. Additionally, he is opposed to any vaccinations and declined a foot examination during the visit. He is also due for an eye exam Social History - Dietary habits include consumption of yogurt with higher sugar content, chicken wings, and a small dinner. - Rigid with dietary discipline but lack s sugar content awareness. Health Maintenance - Refusal of vaccinations. - Educated on the importance of understa nding food labels for sugar content. Review of Systems denies any cp, sob, blurred vision, fevers, chills, neuropathy, polyuria or polydipsia. Physical Exam General: Cooperative, healthy appearing, comfortable, no acute distress and well developed Orientation: Patient oriented x3 Limitations: No limitations Head: Normal to inspection Ears: Hearing grossly normal bilaterally Face and sinus: Normal facial exam Eyes: Appearance normal, both eyes and all related structures Neck: Normal visual inspection and Yes full ROM Respiratory: Normal respiratory effort and able to speak in complete sentences. Clear to auscultation bilaterally Cardiovascular: Regular rate and rhythm. Normal S1 and S2 GI: Normal to inspection. Soft to palpation and nontender Neuro: Patient oriented x3 Extremities: Refused examination of feet today Results - Labs: Hemoglobin A1c is 10.9%. Plan - Educate the patient on the importance of routine blood sugar monitoring at home. - Discuss nutritional counseling, specif ically focusing on reading and understanding food labels to better manage sugar intake. - Follow up planned in four months to re assess diabetes management and A1c levels. Patient was informed and verbally consented to the use of an ambient scribe for clinic note documentation during this visit. Discussion Notes I had an extensive discussion with the patient regarding the critical need to manage his diabetes more effectively. I emphasized the significantly elevated Hemoglobin A1c of 10.9% and the risks associated with poor control of diabetes. We discussed potential pharmaceutical interventions including GLP-1 agonists and SGLT-2 inhibitors, yet the patient expressed strong opposition to any medication and stated he would not adhere if prescribed. I advised on the significance of dietary management and instructed him to focus on the sugar content of foods, particularly in his breakfast choices. We also discussed the necessity of regular blood glucose monitoring, albeit this was also refused. Patient consented to a follow-up in four months to evaluate progress. Patient Instructions - Follow a strict dietary plan focusing on low sugar intake. - Pay special attention to food labels f or sugar content, particularly in yogurt. - Monitor blood sugar levels at home reg ularly, despite current reluctance. - Return for a follow-up appointment in four months to reassess diabetes management. [facility] Medical History Intraductal papillary mucinous neoplasm Diabetes GERD (gastroesophageal reflux disease) Hypertensive retinopathy Surgical History H/O exploratory laparotomy (12/24/22) H/O knee surgery S/P shoulder surgery Family History Father No problems noted. Mother Cancer Social History Housing: House Alcohol intake: current Alcohol intake frequency: a few times a month Patient Tobacco Use Status: Never used Tobacco e-Cigarette/Vaping Use: Never Used Substance Use Type: Marijuana Current occupational status: employed Cognitive needs: No Hearing needs: No Vision needs: No Questionnaire PHQ-9 Over the last 2 weeks, how often have you been bothered by any of the following problems? 1. Little interest or pleasure in doing things: not at all 2. Feeling down, depressed, or hopeless: not at all 3. Trouble falling or staying asleep, or sleeping too much: not at all 4. Feeling tired or having little energy: not at all 5. Poor appetite or overeating: not at all 6. Feeling bad about yourself - or that you are a failure or have let yourself or your family down: not at all 7. Trouble concentrating on things, such as reading the newspaper or watching television: not at all 8. Moving or speaking so slowly that other people could have noticed. Or the opposite - being so fidgety or restless that you have been moving around a lot more than usual: not at all 9. Thoughts that you would be better off or of hurting yourself in some way: not at all Total score: 0 Depression Screening Interpretation: Negative Depression Screening Done: Yes 53395 - PHQ-9 Billing: Yes Source: Developed by Drs. Devin Duran, Cyndee Nava, Freddy Gtz and colleagues, with an educational omar from [employer] [place]. Thrive Questionnaire Date Thrive assessed: 07/21/24 I am a: Patient What is your living situation today?: I have a steady place to live Within the past 12 months, did the food you bought not last and you didn't have the money to get more?: Never true Within the past 12 months, did you worry whether your food would run out before you got money to buy more?: Never true Do you have trouble paying for medicines?: No Do you have trouble getting transportation to medical appointments?: No Do you have trouble paying your heating and electricity bill?: No Do you have trouble taking care of your child, family member or friend?: No Do you have trouble with day-to-day activities such as bathing, preparing meals, shopping, managing finances, etc.?: No Are you currently unemployed and looking for a job?: No Are you interested in more education?: No Please select the resources that you would like help with: None Currently or been in a relationship where the following occur: I choose not to answer THRIVE Score: 0 AUDIT C Alcohol Use Questionnaire (AUDIT-C) 1. How often do you have a drink containing alcohol?: Monthly or less 2. How many drinks containing alcohol do you have on a typical day when you are drinking?: 1 or 2 3. How often do you have six or more drinks on one occasion?: Never Total Score: 1 Score Reviewed/Action Taken: Yes STEVENSON-7 AMB Questionnaire STEVENSON-7 Date STEVENSON - 7 assessed: 07/21/24 Feeling nervous, anxious, or on edge: 0 = Not at all Not being able to stop or control worryin = Not at all Worrying too much about different things: 0 = Not at all Trouble relaxin = Not at all Being so restless that it is hard to sit still: 0 = Not at all Becoming easily annoyed or irritable: 0 = Not at all Feeling afraid as if something awful might happen: 0 = Not at all Total STEVENSON-7 score (0-4 normal; 5-9 mild; 10-14 moderate; 15-21 severe): 0 Source: Developed by Drs. Devin Duran, Cyndee Nava, Freddy Gtz and colleagues, with an educational omar from [employer] [place]. STEVENSON-7 Assessment Billing STEVENSON-7 Assessment Tool: STEVENSON-7 Assessment 01376 Physical exam (Primary Care) Vital Signs: Last Vital Signs Temp 98.0 F 07/21/24 10:24 Pulse 75 07/21/24 10:24 Resp 20 07/21/24 10:24 BP 138/84 07/21/24 10:24 Pulse Ox 97 07/21/24 10:24 Oxygen Delivery Method Room Air 07/21/24 10:24 BMI result Body Mass Index 26.6 Tobacco/Smoking Status: Tobacco use Status Tobacco use date assessed 07/21/24 07/21/24 10:25 Patient Tobacco Use Status Never used Tobacco 07/21/24 10:25 e-Cigarette/Vaping Use Never Used 07/21/24 10:25 PHQ-9: PHQ-9 Score PHQ-9: Total score 0 07/21/24 10:32 Depression Screening Interpretation: Negative Thrive Assessment: Date of Thrive Assessment Date Thrive assessed 07/21/24 07/21/24 10:25 Currently or been in a relationship where the following occur: I choose not to answer Results AMB Hemoglobin A1c AMB Hemoglobin A1c 10.9 % Last Edit by Jose Guadalupe Burgess CMA on 07/21/24 10 :48 Coding Level of Care Code Est Pt Level 3 (02607) Diagnoses Diabetes E11.9 Additional Codes STEVENSON-7 Assessment Billing - STEVENSON-7 Assessment Tool: STEVENSON-7 Assessment 61307 ([id number]) PHQ-9 - 76759 - PHQ-9 Billing: Yes ([id number]) Assessment & Plan Assessment & Plan (1) Diabetes: Code(s): E11.9 - Type 2 diabetes mellitus without complications Category: Medical Plan . Orders: Orders Comprehensive Ayden. Panel Fast Today E11.9 - Type 2 diabetes mellitus without complications UA CC w/rflx Micro + Cult Today E11.9 - Type 2 diabetes mellitus without complications Complete Blood Count Auto Diff Today E11.9 - Type 2 diabetes mellitus without complications TSH reflex Free T4 Today E11.9 - Type 2 diabetes mellitus without complications Lipid Panel Today E11.9 - Type 2 diabetes mellitus without complications AMB Hemoglobin A1c Today Z13.9 - Encounter for screening, unspecified
--- OUTSIDE RECORDS SUMMARY | 2024-07-21 10:32 | XMS_ITS | Clinical Summary ---
Author Organization [facility] Address [address] [place] [address] Phone Care Team Providers Care Fleece Tier Name Role Phone Mayank Loera NP Primary Care Provider [phone] Allergies No known active allergies Medications famotidine (PEPCID) 40 MG tablet Take 1 tablet by mouth 1 (one) time each day Active ondansetron ODT (ZOFRAN-ODT) 4 MG dispersible tablet Take 4 mg by mouth every 8 (eight) hours if needed 11/27/2020 Active metFORMIN (GLUCOPHAGE) 1000 MG tablet Take 1 tablet by mouth in the morning and 1 tablet in the evening. 02/02/2022 Active irbesartan (AVAPRO) 300 MG tablet Take 300 mg by mouth 1 (one) time each day For 30 days 12/01/2022 Active amLODIPine (NORVASC) 10 MG tablet Take 10 mg by mouth 1 (one) time each day Active Active Problems Problem Noted Date Diagnosed Date Acute pancreatitis 09/06/2021 Chronic low back pain 09/06/2021 Steatosis of liver 09/06/2021 Type 2 diabetes mellitus 09/06/2021 Hypertension 05/10/2021 Essential hypertension 07/27/2020 Proteinuria 07/27/2020 Family History Medical History Relation Comments Cancer Mother Relation Status Comments Father Mother Social History Tobacco Use Types Packs/Day Years Used Date Smoking Tobacco: Never Smokeless Tobacco: Never Tobacco Cessation:Counseling Given: Not Answered Alcohol Use Standard Drinks/Week Comments Yes 0 (1 standard drink = 0.6 oz pure alcohol) Alcoholic Drinks/day: Occasional social drink Sex and Gender Information Value Date Recorded Sex Assigned at Not on file Legal Sex Male 4:56 PM EST Gender Identity Not on file Sexual Orientation Not on file Last Filed Vital Signs Vital Sign Reading Time Taken Comments Blood Pressure 150/100 12/26/2022 2:13 PM EDT Pulse 91 12/26/2022 2:13 PM EDT Temperature - - Respiratory Rate - - Oxygen Saturation 98% 05/10/2021 3:32 PM EST Inhaled Oxygen Concentration - - Weight 97.2 kg (214 lb 3.2 oz) 12/26/2022 2:13 P M EDT Height 188 cm (6' 2 ) 10/21/2019 12:00 PM EDT Body Mass Index 27.5 10/21/2019 12:00 PM EDT Plan of Treatment Health Maintenance Due Date Last Done Comments Pneumococcal Vaccine: Pediat rics (0 to 5 Years) and At-Risk Patients (6 to 64 Years) (1 of 2 - PCV) 11/18/1969 Colorectal Cancer Screening: Annual FOBT 11/18/2012 Colorectal Cancer Screening: Colonoscopy 11/18/2012 Colorectal Cancer Screening: Sigmoidoscopy 11/18/2012 Diabetes: Hemoglobin A1C 09/06/2021 Diabetes: Ophthalmology Exam 09/06/2021 Diabetes: Pedal Pulse Checked 09/06/2021 Diabetes: Sensory Foot Exam 09/06/2021 Diabetes: Visual Foot Exam 09/06/2021 Influenza Vaccine (#1) 2024 04/21/2018 Hepatitis B Vaccine Aged Out No longe r eligible based on patient's age to complete this topic [place] [address] [address] [place] [id number] [facility] Care Teams Fleece Tier Relationship Specialty Start Date End Date Mayank Loera NP [address] [place] [address] PCP - General 06/13/20
== END 2024-07-21 10:55 | disposition home or self-care (01) ==
PROVIDERS: PCP Nurse Practitioner Family; Visit Provider Nurse Practitioner Family
DX: Z13.9 Encounter for screening, unspecified (principal); E11.9 Type 2 diabetes mellitus without complications

== ENCOUNTER → 2024-07-21 09:47 | Outpatient (BNVA) | payer BC, SELFPAY | PROVIDERS: PCP Nurse Practitioner Family; Visit Provider Nurse Practitioner Family | DX: E11.9 Type 2 diabetes mellitus without complications (principal) | CPT/HCPCS: 83036; 96127 ==

== ENCOUNTER 2024-09-17 07:17 | Outpatient (REF) | payer BC, SELFPAY ==
--- NOTE | ~2024-09-17 | MR_ITS ---
EXAMINATION: MRCP PROTOCOL. CLINICAL INFORMATION: Cyst of pancreas. TECHNIQUE: Axial and coronal T2 haste sequences. Axial and coronal T2 fat-sat haste sequences. Coronal oblique T2 fat-sat single slice. MRCP radial T2 fat-sat. 3-D space MRCP triggered. Axial in and out off phase 3-D sequences. Axial T1 vibe fat sat.. COMPARISON: Correlated to MRI abdomen dated September 13, 2023. FINDINGS: Gallbladder is fluid-filled. No pericholecystic fluid collection or gallbladder wall thickening. No intraluminal signal abnormality. The common bile duct measures 2 mm in maximum diameter. No intraluminal signal abnormality. Normal opening in the medial aspect of the second portion of the duodenum. Main pancreatic duct measures 14 mm in maximal diameter. Additional findings: Liver measures 18 cm. No focal mass. The drop off the signal from the in phase to out off phase sequences is not grossly abnormal. There are a few less than 3 mm fluid signal characteristic lesions centered in the head and uncinate process of the pancreas and likely posterior dorsal body of the pancreas. No peripancreatic fluid collections. Spleen measures 9 cm. No focal signal abnormality. 1 cm accessory spleen. Adrenal glands demonstrated no nodular lesions. No hydronephrosis in either kidney. No ascites. No aneurysm, abdominal aorta. No intestinal obstruction pattern. MR/MR MRCP IMPRESSION: No choledocholithiasis or cholelithiasis. Less than 3 mm cystic lesions, pancreatic. Stable. Hepatomegaly, mild. Electronically signed by: Seferino Null MD 09/17/2024 08:48 AM EDT
== END 2024-09-17 07:18 | disposition home or self-care (01) ==
LOC: HO.MRI 07:17
PROVIDERS: PCP Nurse Practitioner Family; Visit Provider Nurse Practitioner Family
DX: K86.2 Cyst of pancreas (principal)
CPT/HCPCS: 74181

== ENCOUNTER → 2024-09-17 07:17 | Outpatient (BNV) | payer BC, SELFPAY | PROVIDERS: PCP Nurse Practitioner Family; Visit Provider Radiology Diagnostic Radiology | DX: K86.89 Other specified diseases of pancreas (principal) | CPT/HCPCS: 74181 ==

== ENCOUNTER 2024-09-17 08:02 | Outpatient (REF) | payer BC, SELFPAY ==
--- OUTSIDE RECORDS SUMMARY | 2024-09-17 08:09 | XMS_ITS | Clinical Summary ---
Author Organization [facility] Address [address] [place] [address] Phone Care Team Providers Care Precision Assembler Name Role Phone Mayank Loera NP Primary Care Provider [phone] Allergies No known active allergies Medications famotidine [...] Due Date Last Done Comments Pneumococcal Vaccine: 50+ Ye ars (1 of 2 - PCV) 11/18/1982 Colorectal Cancer Screening: Annual FOBT 11/18/2012 Colorectal Cancer Screening: Colonoscopy 11/18/2012 Colorectal Cancer Screening: Sigmoidoscopy 11/18/2012 Diabetes: Hemoglobin A1C 09/06/2021 Diabetes: Ophthalmology Exam 09/06/2021 Diabetes: Pedal Pulse Checked 09/06/2021 Diabetes: Sensory Foot Exam 09/06/2021 Diabetes: Visual Foot Exam 09/06/2021 Influenza Vaccine (Season Ended) 2025 04/21/20 Hepatitis B Vaccine Aged Out No longe r eligible based on patient's age to complete this topic Insurance [facility] Care Teams Precision Assembler Relationship Specialty Start Date End Date Mayank Loera NP [address] [place] [id number] PCP - General 06/13/20
[2024-09-17 11:26] LABS: Creatinine Urine 252.13 mg/dL; Protein/Creatinine Ratio, Ur 0.18 (<0.2); Total Protein Urine Random 45 mg/dL (<12)
[2024-09-17 13:05] LABS: Anion Gap 13 (12-20); Blood Urea Nitrogen 16 mg/dL (9-16); Carbon Dioxide 29 mmol/L (22-29); Chloride 101 mmol/L (96-108); Estimated Glomerular Filt Rate > 60; Potassium 4.2 mmol/L (3.3-5.1); Sodium 139 mmol/L (135-145)
== END 2024-09-17 08:03 | disposition home or self-care (01) ==
LOC: HO.10HDL 08:02
PROVIDERS: Visit Provider Internal Medicine Nephrology
DX: I10 Essential (primary) hypertension (principal)
CPT/HCPCS: 36415; 80051; 82565; 82570; 84156; 84520

== ENCOUNTER 2024-10-16 14:42 | Outpatient (AMB) | payer BC, SELFPAY ==
--- OUTSIDE RECORDS SUMMARY | 2024-10-16 14:44 | XMS_ITS | Clinical Summary ---
Author Organization [facility] Address [address] [place] [address] Phone Care Team Providers Care Nuclear Powerplant Supervisor Name Role Phone Mayank Loera NP Primary Care Provider [phone] Allergies No known active allergies Medications famotidine [...] patient's age to complete this topic Insurance [facility] Care Teams Nuclear Powerplant Supervisor Relationship Specialty Start Date End Date Mayank Loera NP [address] [place] [id number] PCP - General 06/13/20
--- NOTE | 2024-10-16 15:18 | HO.NEPHOV_ITS ---
Vital Signs 10/16/24 15:20 Height 6 ft 2 in Weight 199 lb 6 oz BMI 25.6 BP 138/90 H Blood Pressure Location Rt brachial Position Sitting Pulse 65 Pulse Source Pulse Oximeter Pulse Oximetry (%) 97 Oxygen Delivery Method Room Air Intake Visit Reasons: 6mon follow up-Conf Agriculture Inspector Required: No Accompanied by: Self / Same As Patient Allergies No Known Allergies Allergy (Verified 10/16/24 15:19) HPI Comments Details: I had the privilege of seeing Maverick in follow-up of his proteinuria. He is a diabetic. He was on metformin in the past which was discontinued as the patient does not like it. His hemoglobin A1c is worse. He denies any visual disturbances, pedal edema, follow-up the urine, chest pain, shortness of breath, proximal nocturnal dyspnea, orthopnea, pedal edema or orthostatic symptoms. He has been on amlodipine and Avapro in the past but not anymore. He is on losartan 75 mg daily. All other systems have been reviewed and were negative. [facility] Medical History (Reviewed 07/21/24 @ 10:25 by Jose Guadalupe Burgess [facility]) Intraductal papillary mucinous neoplasm Diabetes GERD (gastroesophageal reflux disease) Hypertensive retinopathy Surgical History H/O exploratory laparotomy (12/24/22) H/O knee surgery S/P shoulder surgery Family History Father No problems noted. Mother Cancer Social History Housing: House Alcohol intake: current Alcohol intake frequency: a few times a month Patient Tobacco Use Status: Never used Tobacco e-Cigarette/Vaping Use: Never Used Substance Use Type: Marijuana Current occupational status: employed Cognitive needs: No Hearing needs: No Vision needs: No Review of Systems Const All systems reviewed & are unremarkable except as noted in HPI and below Physical Exam Vital Signs: Last Vital Signs Pulse 65 10/16/24 15:20 BP 138/90 H 10/16/24 15:20 Pulse Ox 97 10/16/24 15:20 Oxygen Delivery Method Room Air 10/16/24 15:20 BMI result Body Mass Index 25.6 Const General: comfortable and no acute distress Orientation/consciousness: patient oriented x3 HEENT Head: Yes normocephalic Mouth: Normal oral and palatal mucosa present Eyes EOM: EOMs intact bilaterally Neck Neck: Yes supple Resp Auscultation: clear to auscultation bilaterally Cardio Jugular venous distension: no JVD Rate: regular rate GI Palpation (GI): Soft to palpation Auscultation: normal bowel sounds General: Yes no CVA tenderness Back/Spine/Pelvis Back: no CVA tenderness Skin General skin exam: no rashes or lesions noted Neuro General: patient oriented x3 and moves all extremities Extrem General: Yes no pedal edema Results Reviewed Nephrology Results: Sodium 139 mmol/L (135-145) 09/17/24 Potassium 4.2 mmol/L (3.3-5.1) 09/17/24 Chloride 101 mmol/L (96-108) 09/17/24 Carbon Dioxide 29 mmol/L (22-29) 09/17/24 BUN 16 mg/dL (9-16) 09/17/24 Creatinine 0.97 mg/dL (0.5-1.4) 09/17/24 Urine Creatinine 252.13 mg/dL 09/17/24 Protein/Creatinin Ratio 0.18 (<0.2) 09/17/24 Assessment & Plan Assessment & Plan (1) Diabetic nephropathy: Code(s): E11.21 - Type 2 diabetes mellitus with diabetic nephropathy Category: Medical Qualifiers: Diabetes mellitus type: type 2 Qualified Code(s): E11.21 - Type 2 diabetes mellitus with diabetic nephropathy (2) Essential hypertension: Code(s): I10 - Essential (primary) hypertension Category: Medical (3) Proteinuria: Code(s): R80.9 - Proteinuria, unspecified Category: Medical Qualifiers: Proteinuria type: other Qualified Code(s): R80.8 - Other proteinuria Plan 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 He has longstanding history of hypertension. He had been on metformin in the past which has been discontinued by the patient as he does not like it. He is not taking Jardiance . He could continue losartan 75 mg daily. I reiterated the importance of good blood sugar and blood pressure control. He should remain well hydrated and avoid nons teroidal anti-inflammatories. Follow-up blood work ordered. He is aware of losartan side effects. All questions were answered and follow-up given Orders: Orders Creatinine 6 Months E11.21 - Type 2 diabetes mellitus with diabetic nephropathy, I10 - Essential (primary) hypertension, R80.8 - Other proteinuria Electrolytes 6 Months E11.21 - Type 2 diabetes mellitus with diabetic nephropathy, I10 - Essential (primary) hypertension, R80.8 - Other proteinuria Hemoglobin A1c 6 Months E11. - Type 2 diabetes mellitus with diabetic nephropathy, I10 - Essential (primary) hypertension, R80.8 - Other proteinuria Protein Creatinine Ratio, Ur 6 Months E11. - Type 2 diabetes mellitus with diabetic nephropathy, I10 - Essential (primary) hypertension, R80.8 - Other proteinuria Blood Urea Nitrogen 6 Months E11.21 - Type 2 diabetes mellitus with diabetic nephropathy, I10 - Essential (primary) hypertension, R80.8 - Other proteinuria Medications: Refilled losartan 75 mg (1.5 x 50 mg) PO DAILY 135 tabs 4RF Coding Level of Care Code Est Pt Level 4 (81988) Diagnoses Diabetic nephropathy associated with type 2 diabetes mellitus E11. Diabetes mellitus type: type 2 Essential hypertension I10 Other proteinuria R80.8 Proteinuria type: other
[2024-10-16 15:20] VITALS: BP 138/90; PULSE 65; O2SAT 97; BMI 25.6
== END 2024-10-16 15:53 | disposition home or self-care (01) ==
PROVIDERS: PCP Nurse Practitioner Family; Visit Provider Internal Medicine Nephrology
DX: E11.21 Type 2 diabetes mellitus with diabetic nephropathy (principal); I10 Essential (primary) hypertension; R80.8 Other proteinuria
CPT/HCPCS: 99214

== ENCOUNTER 2025-03-12 07:36 | Outpatient (REF) | payer BC, SELFPAY ==
[2025-03-12 11:26] LABS: Microalbum/Creatinine Ratio Ur 67.5 ug/mg cr (<30)
== END 2025-03-12 07:37 | disposition home or self-care (01) ==
LOC: HO.HMGCLDS 07:36
PROVIDERS: PCP Nurse Practitioner Family; Visit Provider Nurse Practitioner Family
DX: E11.9 Type 2 diabetes mellitus without complications (principal)
CPT/HCPCS: 36415; 82043; 82570; 83036

== ENCOUNTER 2025-03-15 12:45 | Outpatient (AMB) | payer BC, SELFPAY ==
--- OUTSIDE RECORDS SUMMARY | 2025-03-15 12:48 | XMS_ITS | Clinical Summary ---
Author Organization [facility] Address [address] [place] [address] Phone Care Team Providers Care Stave Bolt Equalizer Name Role Phone Mayank Loera NP Primary Care Provider [phone] Allergies No known active allergies Medications famotidine [...] pancreatitis 09/06/2021 Chronic low back pain 09/06/2021 Steatotic liver disease 09/06/2021 Type 2 diabetes mellitus 09/06/2021 Hypertension [...] Visual Foot Exam 09/06/2021 Influenza Vaccine (#1) 2025 04/21/2018 Hepatitis B Vaccine Aged Out No longe r eligible based on patient's age to complete this topic Insurance [facility] Care Teams Stave Bolt Equalizer Relationship Specialty Start Date End Date Mayank Loera NP [address] [place] [id number] PCP - General 06/13/20
--- OUTSIDE RECORDS SUMMARY | 2025-03-15 12:48 | XMS_ITS | Clinical Summary ---
Author Organization Located Within [facility] Address [address] [place] [address] [place] [address] Phone Care Team Providers Care Medical Reception Specialist Name Role Phone Unavailable Primary Care Provider Unavailabl e Immunizations Immunization Administration Dates Next Due INFLUENZA, SPLIT VIRUS, TRIV ALENT W/ PRESERVATIVE IM 08/11/2014,05/26/2013,03/19/2011 Influenza Quadrivalent w/ Preservative IM 2017 Tdap 04/16/2007 Social History Tobacco Use Types Packs/Day Years Used Date Smoking Tobacco: Never Assessed Education Answer Date Recorded Are you interested in more education? Not on isabell e 09/28/2022 Are you concerned about learning? Not on file 09/28/2022 No 09/28/2022 No 09/28/2022 Digital Access Answer Date Recorded No 10/29/2022 No 10/29/2022 No 10/29/2022 Reliable internet access at home? Not on file 10/29/2022 Device with a working camera? Not on file Sex and Gender Information Value Date Recorded Sex Assigned at Male 11/03/2021 11:13 AM EDT Legal Sex Male 9:43 PM EDT Gender Identity Male 11/03/2021 11:13 AM EDT Sexual Orientation Straight 11/03/2021 11 :13 AM EDT Plan of Treatment Health Maintenance Due Date Last Done Comments LIPID PANEL 1965 DEPRESSION SCREENING 1975 SMOKING Hx and SMOKELESS TOBACCO SCREENING 11/18/1976 HEPATITIS C SCREENING 11/18/1981 HIV ONE-TIME SCREENING (18-65 YEARS) 11/18/1981 COLOGUARD 11/18/2008 COLONOSCOPY 11/18/2008 COLORECTAL CANCER SCREENING 11/18/2008 FIT TEST 11/18/2008 FOBT 11/18/2008 SIGMOIDOSCOPY 11/18/2008 VIRTUAL COLONOSCOPY 11/18/2008 PNEUMOCOCCAL VACCINES (50+ years) (1 of 1 - PCV) 11/18/2013 ZOSTER VACCINES (1 of 2) 11/18/2013 Adult Td,Tdap Booster 04/16/2017 04/16/2007 INFLUENZA VACCINE (#1) 2025 8, 08/11/2014, 05/26/2013, Additional history exists COVID-19 VACCINE (2024- season) 2025 05/17/2021, 10/04/2020, 09/13/2020 RSV VACCINE (1 - 1-dose 75+ series) 11/18/2038 HEPATITIS A VACCINES Aged Out No long er eligible based on patient's age to complete this topic HIB VACCINES Aged Out No longer eligi ble based on patient's age to complete this topic MENINGOCOCCAL VACCINES (ACWY) Aged Out No longer eligible based on patient's age to complete this topic MENINGOCOCCAL VACCINES (B) Aged Out N o longer eligible based on patient's age to complete this topic Medical Devices Not on file Insurance [place] [address] [place] [address] [place] [address] [place] [address] [place] [place] [address] [place] [place] [address] PPO EPO PPO EPO PPO EPO PPO EPO PPO EPO Additional Source Comments The information contained in this document represents components of the legal health record. It is not the complete legal health record.[facility]
[2025-03-15 13:01] VITALS: BP 140/80; PULSE 78; RESP 16; O2SAT 98; BMI 25.7
--- NOTE | 2025-03-15 13:01 | A.OFFPC_ITS ---
Vital Signs 03/15/25 13:01 03/15/25 13:23 Height 6 ft 2 in Weight 200 lb BMI 25.7 BP 140/80 H 120/82 Blood Pressure Location Lt brachial Lt brachial Position Sitting Sitting Respiration 16 Pulse 78 Pulse Source Pulse Oximeter Pulse Oximetry (%) 98 Oxygen Delivery Method Room Air Intake Visit Reasons: 4m follow up- needs repeat A1C Bowling Alley Manager Required: No Accompanied by: Self / Same As Patient Allergies No Known Allergies Allergy (Verified 03/15/25 13:06) Medication List - Last Reconciled 03/15/25 by Mayank Loera [facility] blood sugar diagnostic (FreeStyle Lite Strips) Use to check blood sugar daily blood-glucose meter (FreeStyle Lite Meter kit) Use to check blood sugar daily cholecalciferol (vitamin D3) (Vitamin D3) 50 mcg PO DAILY lancets (FreeStyle Lancets) Use to check blood sugar daily losartan 75 mg (1.5 x 50 mg) PO DAILY omeprazole 20 mg PO DAILY scopolamine base 1 patch transdermal Q3D PRN 30 days Tobacco use date assessed: 03/15/25 Dental Screening Dental Screen Date: 03/15/25 Did you have a dental visit in the last 12 months?: Yes Did you have a dental problem in the last 6 months where you did not have access to dental care?: No Was dental information given to patient?: Patient declined HPI 4m follow up- needs repeat A1C 2 HPI Details Chief Complaint The patient is concerned about diabetes management and treatment options. History of Present Illness The patient is a 59-year-old male presenting with diabetes management. He has been reluctant to engage in treatment over the years, although he has managed to lower his hemoglobin A1c to 9% through dietary changes. Despite these efforts, he remains hesitant to initiate insulin therapy or oral hypoglycemic agents, although he is open to considering a low dose of medication if his A1c remains elevated in the future. The patient denies any symptoms of neuropathy, and a monofilament test confirmed intact sensation in his feet. He has a scheduled eye examination and is under the care of a shearing machine tender, indicating ongoing monitoring for diabetes-related complications. Social History Health Maintenance - Scheduled eye examination for diabetes -related complications Review of Systems - Neurological: Denies neuropathy Physical Exam General: Cooperative, healthy appearing, comfortable, no acute distress and well developed Orientation: Patient oriented x3 Limitations: No limitations Head: Normal to inspection Ears: Hearing grossly normal bilaterally Nose: Normal external nose present Face and sinus: Normal facial exam Eyes: Appearance normal, both eyes and all related structures Neck: Normal visual inspection and Yes full ROM Respiratory: Normal respiratory effort and able to speak in complete sentences. Clear to auscultation bilaterally Cardiovascular: Regular rate and rhythm. Normal S1 and S2 GI: Normal to inspection. Soft to palpation and nontender Skin: No rashes or lesions noted Neuro: Patient oriented x3 Extremities: Feet intact bilaterally, positive sensation with use of monofilament Results Plan 1. Diabetes Mellitus The patient has been managing his diabetes primarily through dietary changes, resulting in a reduction of his hemoglobin A1c to 9%. He is currently not on insulin or oral hypoglycemic agents due to reluctance but is considering low- dose medication if his A1c remains elevated. Follow-up is planned in three to four months to reassess his A1c levels and consider medication initiation if necessary. Discussion Notes I discussed with the patient the importance of managing his diabetes effectively to prevent complications. We reviewed his current A1c level and the potential need for medication if dietary changes alone are insufficient. The patient agreed to consider medication if his A1c remains high at the next follow-up in three to four months. Patient Instructions - Continue with dietary changes to manag e blood sugar levels. - Schedule and attend the upcoming eye e xamination. - Follow up in three to four months for reassessment of A1c levels. [facility] Medical History Calcific tendonitis of right shoulder Intraductal papillary mucinous neoplasm Diabetes GERD (gastroesophageal reflux disease) Hypertensive retinopathy Surgical History H/O exploratory laparotomy (12/24/22) H/O knee surgery S/P shoulder surgery Family History Father No problems noted. Mother Cancer Social History Housing: House Alcohol intake: current Alcohol intake frequency: a few times a month Patient Tobacco Use Status: Never used Tobacco e-Cigarette/Vaping Use: Never Used Substance Use Type: Marijuana Current occupational status: employed Cognitive needs: No Hearing needs: No Vision needs: No Questionnaire PHQ-9 Over the last 2 weeks, how often have you been bothered by any of the following problems? 1. Little interest or pleasure in doing things: not at all 2. Feeling down, depressed, or hopeless: not at all 3. Trouble falling or staying asleep, or sleeping too much: not at all 4. Feeling tired or having little energy: not at all 5. Poor appetite or overeating: not at all 6. Feeling bad about yourself - or that you are a failure or have let yourself or your family down: not at all 7. Trouble concentrating on things, such as reading the newspaper or watching television: not at all 8. Moving or speaking so slowly that other people could have noticed. Or the opposite - being so fidgety or restless that you have been moving around a lot more than usual: not at all 9. Thoughts that you would be better off or of hurting yourself in some way: not at all Total score: 0 Depression Screening Interpretation: Negative Depression Screening Done: Yes 18988 - PHQ-9 Billing: Yes Source: Developed by Drs. Devin Duran, Cyndee Nava, Freddy Gtz and colleagues, with an educational omar from [employer]. Thrive Questionnaire Date Thrive assessed: 07/14/24 I am a: Patient What is your living situation today?: I have a steady place to live Within the past 12 months, did the food you bought not last and you didn't have the money to get more?: Never true Within the past 12 months, did you worry whether your food would run out before you got money to buy more?: Never true Do you have trouble paying for medicines?: No Do you have trouble getting transportation to medical appointments?: No Do you have trouble paying your heating and electricity bill?: No Do you have trouble taking care of your child, family member or friend?: No Do you have trouble with day-to-day activities such as bathing, preparing meals, shopping, managing finances, etc.?: No Are you currently unemployed and looking for a job?: No Are you interested in more education?: No Please select the resources that you would like help with: None Currently or been in a relationship where the following occur: I choose not to answer THRIVE Score: 0 STEVENSON-7 AMB Questionnaire STEVENSON-7 Date STEVENSON - 7 assessed: 03/15/25 Feeling nervous, anxious, or on edge: 0 = Not at all Not being able to stop or control worryin = Not at all Worrying too much about different things: 0 = Not at all Trouble relaxin = Not at all Being so restless that it is hard to sit still: 0 = Not at all Becoming easily annoyed or irritable: 0 = Not at all Feeling afraid as if something awful might happen: 0 = Not at all Total STEVENSON-7 score (0-4 normal; 5-9 mild; 10-14 moderate; 15-21 severe): 0 Source: Developed by Drs. Devin Duran, Cyndee Nava, Freddy Gtz and colleagues, with an educational omar from [employer]. Physical exam (Primary Care) Vital Signs: Last Vital Signs Pulse 78 03/15/25 13:01 Resp 16 03/15/25 13:01 BP 120/82 03/15/25 13:23 Pulse Ox 98 03/15/25 13:01 Oxygen Delivery Method Room Air 03/15/25 13:01 BMI result Body Mass Index 25.7 Tobacco/Smoking Status: Tobacco use Status Tobacco use date assessed 03/15/25 03/15/25 13:07 Patient Tobacco Use Status Never used Tobacco 03/15/25 13:07 e-Cigarette/Vaping Use Never Used 03/15/25 13:07 PHQ-9: PHQ-9 Score PHQ-9: Total score 0 03/15/25 13:21 Depression Screening Interpretation: Negative Thrive Assessment: Date of Thrive Assessment Date Thrive assessed 07/14/24 03/15/25 13:07 Currently or been in a relationship where the following occur: I choose not to answer Results AMB Hemoglobin A1c AMB Hemoglobin A1c 9.0 % Last Edit by Darya Mireles MA on 03/15/25 13:19 Results Reviewed Results Reviewed: Laboratory Last Values Hgb A1c (Clinic) 9.0 % (4.0-6.0) H 03/15/25 13:16 Coding Level of Care Code Est Pt Level 3 (24842) Diagnoses Uncontrolled diabetes mellitus with hyperglycemia E11.65 Additional Codes PHQ-9 - 00463 - PHQ-9 Billing: Yes ([id number]) Assessment & Plan Assessment & Plan (1) Uncontrolled diabetes mellitus with hyperglycemia: Code(s): E11.65 - Type 2 diabetes mellitus with hyperglycemia Category: Medical Plan . Orders: Orders Complete Blood Count Auto Diff Today E11.65 - Type 2 diabetes mellitus with hyperglycemia Comprehensive [place]. Panel Fast Today E11.65 - Type 2 diabetes mellitus with hyperglycemia TSH reflex Free T4 Today E11.65 - Type 2 diabetes mellitus with hyperglycemia UA CC w/rflx Micro + Cult Today E11.65 - Type 2 diabetes mellitus with hyperglycemia AMB Hemoglobin A1c Today Z13.9 - Encounter for screening, unspecified Complete Blood Count Auto Diff 2 Months E11.65 - Type 2 diabetes mellitus with hyperglycemia UA CC w/rflx Micro + Cult 2 Months E11.65 - Type 2 diabetes mellitus with hyperglycemia Lipid Panel Today E11.65 - Type 2 diabetes mellitus with hyperglycemia Comprehensive [place]. Panel Fast 2 Months E11.65 - Type 2 diabetes mellitus with hyperglycemia TSH reflex Free T4 2 Months E11.65 - Type 2 diabetes mellitus with hyperglycemia TDaP Immunization Today Z23 - Encounter for immunization Medications: New Boostrix Tdap (diphth,pertus(acell),tetanus) 0.5 mL IM ONCE 0.5 mL 0RF NS Z23 - Encounter for immunization
[2025-03-15 13:23] VITALS: BP 120/82
== END 2025-03-15 15:23 | disposition home or self-care (01) ==
LOC: HO.HMCC 12:46
PROVIDERS: PCP Nurse Practitioner Family; Visit Provider Nurse Practitioner Family
DX: Z13.9 Encounter for screening, unspecified (principal); Z23 Encounter for immunization; E11.65 Type 2 diabetes mellitus with hyperglycemia

== ENCOUNTER → 2025-03-15 12:45 | Outpatient (BNVA) | payer BC, SELFPAY | PROVIDERS: PCP Nurse Practitioner Family; Visit Provider Nurse Practitioner Family | DX: E11.65 Type 2 diabetes mellitus with hyperglycemia (principal); Z23 Encounter for immunization; Z13.31 Encounter for screening for depression; Z13.39 Encounter for screening examination for other mental health and behavioral disorders | CPT/HCPCS: 83036; 90471; 90715; 96127 ==

== ENCOUNTER 2025-04-26 06:41 | Outpatient (REF) | payer BC, SELFPAY ==
--- OUTSIDE RECORDS SUMMARY | 2025-04-26 06:59 | XMS_ITS | Clinical Summary ---
Author Organization [facility] Address [address] [place] [address] Phone Care Team Providers Care Porcelain Waxer Name Role Phone Mayank Loera NP Primary Care Provider [phone] Allergies No known active allergies Medications famotidine [...] patient's age to complete this topic Insurance * Guarantor: Maverick Larry Account Type Relation to Patient Date of Phone Billing Address Personal/Family Self [address] [place] [phone] [facility] * Guarantor: Maverick Larry Account Type Relation to Patient Date of Phone Billing Address Personal/Family Self [address] [place] [id number] [facility] Care Teams Porcelain Waxer Relationship Specialty Start Date End Date Mayank Loera NP [address] [place] [id number] PCP - General 06/13/20
--- OUTSIDE RECORDS SUMMARY | 2025-04-26 07:00 | XMS_ITS | Patient Health Record ---
Author Organization [facility] Address [address] [place] [address] Care Team Providers Care Supervisor Fish Hatchery Name Role Phone Sunshine Renteria MD Primary Care Provider UnavailNorris Nelson Unavailable [phone] Reason For Referral No Information Medications Medication SIG (Take, Route, Fr equency, Duration) Notes Start Date End Date Status Piroxicam 20 MG 1 capsule with food Orally Once a day; Duration: 30 day(s) Not-T aking AFO-fixed fixed 1 Dx: stress fractur e left heel with need for PTB AFO well padded brace left leg 10/13/2013 Active Social History Tobacco use other than smoking: Question Answer Notes Are you an other tobacco user? No Problems Problem Type SNOMED Code ICD Code Onset Dates Problem Status W/U Status Risk Notes Problem Bursitis (81941710) Bursitis (727.3) Active confirmed Problem Myositis (45208442) Myositis (729.1) Active confirmed Problem Pain in limb (08078936) Pain in Limb (729.5) Active confirmed Problem Plantar fasciitis (528880834) Plantar Fasciitis (728.71) Active confirmed Problem Calcaneal spur (67868722) Calcaneal spur (726.73) Active confirmed Plan Of Treatment Pending Test Test Name Order Date X ray : Foot, left 2V 07/06/2013 [id number] TENDON SHEATH/LIGAMENT 0 08/28/2013 Insurance Providers Payer Name Payer Address Payer Phone Subscriber Number Group Number Insured Name Patient Relationship to Insured Coverage Start Date Coverage End Date Aki All Others [address] [place] [address] [id number] ARLEN LOYA Self - patient is the insured Medical (General) History Medical History History ICD Code Chicken pox Hospitalization History Reason Date(Month/Year) Bone scan - [facility] 10/09/13
--- OUTSIDE RECORDS SUMMARY | 2025-04-26 07:00 | XMS_ITS | Clinical Summary ---
Author Organization [facility] Address [address] [place] [address] [place] [phone] Phone Care Team Providers Care Flatwork Catcher Name Role Phone Unavailable Primary Care Provider [...] Devices Not on file Insurance [place] [address] [address] [place] [address] [place] [address] [place] [address] [place] [address] [place] [address] [address] [place] [address] PPO EPO PPO EPO PPO EPO PPO EPO PPO EPO Additional Source Comments The information contained in this document represents components of the legal health record. It is not the complete legal health record.[facility]
[2025-04-26 10:45] LABS: Prostate Specific Antigen 1.10 ng/mL (<0.05-4.0)
== END 2025-04-26 06:42 | disposition home or self-care (01) ==
LOC: HO.HMGCLDS 06:41
PROVIDERS: PCP Nurse Practitioner Family; Visit Provider Nurse Practitioner Family
DX: N40.0 Benign prostatic hyperplasia without lower urinary tract symptoms (principal); Z12.5 Encounter for screening for malignant neoplasm of prostate
CPT/HCPCS: 36415; 84153

== ENCOUNTER 2025-05-04 08:18 | Outpatient (AMB) | payer BC, SELFPAY ==
--- NOTE | 2025-05-04 08:21 | A.OFFVIS_ITS ---
Intake Visit Reasons: 1y/PSA/UA Intake Note: Patient is present for 1Y/PSA/UA Urology Medication:NONE Antibiotic Allergy:NONE Blood Thinner:NONE Karate Instructor Required: No Allergies No Known Allergies Allergy (Verified 05/04/25 08:52) Medication List - Last Reconciled 05/04/25 by ALEXY [place] blood sugar diagnostic (FreeStyle Lite Strips) Use to check blood sugar daily blood-glucose meter (FreeStyle Lite Meter kit) Use to check blood sugar daily cholecalciferol (vitamin D3) (Vitamin D3) 50 mcg PO DAILY lancets (FreeStyle Lancets) Use to check blood sugar daily losartan 75 mg (1.5 x 50 mg) PO DAILY omeprazole 20 mg PO DAILY scopolamine base 1 patch transdermal Q3D PRN 30 days HPI Comments Details: Maverick Ashby is a very pleasant 59-year-old male patient of Dr. Velazquez. He has a past medical history of diabetes, GERD, and hypertensive retinopathy. He presents to the office today for follow-up of his lower urinary tract symptoms. In discussion with the patient today reports to be doing and feeling well. He denies having had any bothersome urinary issues or concerns since his last office visit here approximately 1 year ago. In office urinalysis results reviewed with the patient today. Recent PSA results reviewed with the patient today as noted and trended below: PSAs: 05/24 1.2, 12/23 1.1, 04/27 1.1 He discusses he continues to follow-up with nephrology, gastroenterology as well as his PCP as planned. When asked he denies urinary urgency, urinary frequency, incontinence, nocturia, hematuria, dysuria, foul smelling urine, changes to urinary stream, flank pain, fever, and or chills. He is happy with his current voiding parameters. All questions were answered. He otherwise offers no other issues or concerns at this time. [facility] Medical History Calcific tendonitis of right shoulder Intraductal papillary mucinous neoplasm Diabetes GERD (gastroesophageal reflux disease) Hypertensive retinopathy Surgical History H/O exploratory laparotomy (12/24/22) H/O knee surgery S/P shoulder surgery Family History Father No problems noted. Mother Cancer Social History Housing: House Alcohol intake: current Alcohol intake frequency: a few times a month Patient Tobacco Use Status: Never used Tobacco e-Cigarette/Vaping Use: Never Used Substance Use Type: Marijuana Current occupational status: employed Cognitive needs: No Hearing needs: No Vision needs: No Review of Systems Const All systems reviewed & are unremarkable except as noted in HPI and below Physical Exam Const General: cooperative, healthy appearing, comfortable, no acute distress, well developed, alert and awake Orientation/consciousness: patient oriented x3 Limitations: no limitations HEENT Head: Yes normal to inspection, Yes normocephalic and Yes atraumatic Ears: hearing grossly normal bilaterally Eyes General: appearance normal, both eyes and all related structures Neck Neck: Yes normal visual inspection and Yes trachea midline Chest Chest palpation & inspection: normal inspection of the chest Resp Effort & Inspection: normal respiratory effort and able to speak in complete sentences Cardio Rate: regular rate GI Inspection: Yes normal to inspection General: Yes no CVA tenderness Back/Spine/Pelvis Back: no CVA tenderness Skin General skin exam: no rashes or lesions noted Neuro General: patient oriented x3 Extrem General: Yes normal to inspection Psych Appearance: grossly normal and well kempt Mental Status: mental status grossly normal Speech and movement: Normal speech and movement present and Clear speech present Affect: normal affect Attitude: cooperative Thought process: Normal thought process present Thought content: Normal thought content present Insight: Fair insight present (Psych) Judgement: Fair judgement present (Psych) Results AMB Urinalysis, Automated UA Leukoctes 0 Marline/uL Last Edit by MESHA Lau on 05/04/25 08:35 UA Nitrite Negative Last Edit by MESHA Lau on 05/04/25 08:35 UA Urobilinogen 0.2 mg/dL Last Edit by MESHA Lau on 05/04/25 08:3 5 UA Protein 30 mg/dL Last Edit by MESHA Lau on 05/04/25 08:35 UA pH 5.5 Last Edit by MESHA Lau on 05/04/25 08:35 UA Blood 0 Edy/uL Last Edit by MESHA Lau on 05/04/25 08:35 UA Specific Keyser 1.030 Last Edit by MESHA Lau on 05/04/25 08: 35 UA Ketone Negative Last Edit by MESHA Lau on 05/04/25 08:35 UA Bilirubin 0 mg/dL Last Edit by MESHA Lau on 05/04/25 08:35 UA Glucose 0 mg/dL Last Edit by MESHA Lau on 05/04/25 08:35 Results Reviewed Results Reviewed: Laboratory Last Values Urine pH (Auto) 5.5 05/04/25 08:26 Specific Keyser (Auto) 1.030 05/04/25 08:26 Urine Protein (Auto) 30 mg/dL 05/04/25 08:26 Glucose (UA)(Auto) 0 mg/dL 05/04/25 08:26 Urine Ketones (Auto) Negative 05/04/25 08:26 Urine Blood (Auto) 0 Edy/uL 05/04/25 08:26 Urine Nitrite (Auto) Negative 05/04/25 08:26 Urine Bilirubin (Auto) 0 mg/dL 05/04/25 08:26 Urine Urobilinogen (Auto) 0.2 mg/dL 05/04/25 08:26 Leukocyte Esterase (Auto) 0 Marline/uL 05/04/25 08:26 Assessment & Plan Assessment & Plan (1) Screening PSA (prostate specific antigen): Code(s): Z12.5 - Encounter for screening for malignant neoplasm of prostate Category: Medical (2) Prostate enlargement: Code(s): N40.0 - Benign prostatic hyperplasia without lower urinary tract symptoms Category: Medical (3) Weak urinary stream: Code(s): R39.12 - Poor urinary stream Category: Medical Plan In office urinalysis results with the patient today; as noted above. Most recent PSA results with the patient today; as noted above. All questions were answered. We did discussed importance of management and diabetes for improvement in overall health and well-being. He denies any bothersome urinary issues or concerns. He reports be happy with current voiding parameters. Will continue with surveillance monitoring. Follow-up in 1 year with PSA and PVR; or sooner with any issues, concerns, and or questions. Orders: Orders AMB Urinalysis Automated Today Z13.9 - Encounter for screening, unspecified Prostate Specific Antigen 1 Year N40.0 - Benign prostatic hyperplasia without lower urinary tract symptoms, Z12.5 - Encounter for screening for malignant neoplasm of prostate Patient Instructions: The patient had an opportunity to ask questions regarding the treatment plan. All questions were answered. Physical exam, labs, and imaging were discussed and reviewed in detail. As well as risks, benefits, and discussion of treatment choices. No major barriers to understanding were identified. The patient expressed understanding and agreement with the above treatment plan. The patient was made aware they should contact our office by phone for worsening of their current condition, the appearance of new symptoms, or with any questions or concerns. Compliance is encouraged with any medications and follow up testing that is ordered. It is a privilege to be allowed the opportunity to participate in? your urological care.? Again, if you have any questions or concerns If you have any questions or concerns please do not hesitate to contact me. The office is [phone]. This note is constructed using voice recognition software. While every effort has been made to ensure accuracy pharmacology teacher errors may have been included. Yours sincerely, ALEXY [place] Coding Level of Care Code Est Pt Level 3 (11577) Diagnoses Screening PSA (prostate specific antigen) Z12.5 Prostate enlargement N40.0 Weak urinary stream R39.12
--- OUTSIDE RECORDS SUMMARY | 2025-05-04 08:22 | XMS_ITS | Clinical Summary ---
Author Organization [facility] Address [address] [place] [address] [place] [phone] Phone Care Team Providers Care Commissioner Public [employer] Name Role Phone Unavailable Primary Care Provider [...] Devices Not on file Insurance [place] [address] [place] [address] [place] [address] [place] [address] [address] [place] [address] [place] [address] [place] [address] PPO EPO PPO EPO PPO EPO PPO EPO PPO EPO Additional Source Comments The information contained in this document represents components of the legal health record. It is not the complete legal health record.[facility]
== END 2025-05-04 08:38 | disposition home or self-care (01) ==
LOC: HO.HUSH 08:18
PROVIDERS: PCP Nurse Practitioner Family; Visit Provider Nurse Practitioner Family
DX: Z12.5 Encounter for screening for malignant neoplasm of prostate (principal); N40.0 Benign prostatic hyperplasia without lower urinary tract symptoms; R39.12 Poor urinary stream; Z13.9 Encounter for screening, unspecified
CPT/HCPCS: 99213

== ENCOUNTER → 2025-05-04 08:18 | Outpatient (BNVA) | payer BC, SELFPAY | PROVIDERS: PCP Nurse Practitioner Family; Visit Provider Nurse Practitioner Family | DX: N40.0 Benign prostatic hyperplasia without lower urinary tract symptoms (principal); R39.12 Poor urinary stream; Z12.5 Encounter for screening for malignant neoplasm of prostate | CPT/HCPCS: 81003 ==